=== PATIENT | female | born 1940 | race Caucasian/White ===

== ENCOUNTER 2016-08-02 15:07 | Inpatient (IN) | payer OTHER, BC ==
[2016-08-02] VITALS (7 sets, daily range): BP systolic 95–148; BP diastolic 60–111
[~2016-08-02] VITALS: Ht 157.5 cm; Wt 73.9 kg
--- NOTE | ~2016-08-02 | HC ---
[facility] [place] [place] [address] CONSULTATION Name: DENZEL BENTLEY Room #: 250- ADM IN M.R.#: [id number] Admission: 08/02/16 Attend Phys: Contreras Shafer MD Discharge: Date of : 39 Report #: [id number] THIS REPORT FOR: //name// CC: Leonel Worley MD DATE OF SERVICE: 08/03/[address] Vinicio Worley and Dr. Contreras Shafer. CHIEF COMPLAINT: This is a very pleasant 76-year-old white female who was admitted through the night with severe diarrhea and volume contraction, dehydration. She had a history of C. difficile diarrhea and CT scan showed that she did in fact have a segmental colitis involving the area around the splenic flexure and splenic flexure. She has been on p.o. vancomycin and continues on p.o. vancomycin. Now, she is also receiving IV Flagyl. Because of the possibility of ischemia as seen clinically and on CT scan, a lactate level was done and was normal. PAST MEDICAL HISTORY: Significant for: 1. Hypertension, atherosclerosis, osteoporosis. She has a history of vertebral compression fracture and is status post kyphoplasty. She has a history of an elevated ammonia. Today, she awakens easily, but drifts back to sleep immediately, which might be a sign of stage 2 coma. She has a history of metabolic encephalopathy in the past per her chart. 2. Paroxysmal supraventricular tachycardia with paroxysmal atrial fibrillation. 3. Acute urinary tract infection. 4. COPD greater than a 50 pack year smoker. 5. Depression. 6. Anxiety. 7. Old right rib fractures. 8. Cholelithiasis. 9. Atrophic left kidney. 10. Extensive aortic atherosclerosis. 11. Hypokalemia. MEDICATIONS AT THE CURRENT TIME: Include: 1. Amiodarone, gabapentin, metoprolol, tamsulosin. She is taking probiotics, normal saline IV fluid, clotrimazole topical, metronidazole IV, ipratropium bromide and albuterol inhaler. 2. Acetaminophen, vancomycin, ondansetron, metronidazole. She got 1 dose of ciprofloxacin. [facility] [address] [place] [address] CONSULTATION Name: MC,DENZEL C Room #: 250-P [facility] IN [facility].#: [id number] Admission: 08/02/16 Attend Phys: Contreras Shafer MD Discharge: Date of : 39 Report #: [id number] ALLERGIES: NICKEL. FAMILY HISTORY: Crohn's disease in her son. There is no history of colon polyps, colon cancer or ulcerative colitis. REVIEW OF SYSTEMS: She denies any dysphagia, odynophagia, gastroesophageal reflux, hiatal hernia, peptic ulcer disease, nausea or vomiting. Her weight has been stable. Appetite has been fairly good. She denies any hematemesis, hematochezia or melena. She has had diarrhea. She usually has alternating constipation and diarrhea. She denies any abdominal pain at this time. Denies any fevers or chills. She has had no history of jaundice, hepatitis, cholelithiasis, cholecystitis, pancreatitis that she is aware of. PHYSICAL EXAMINATION: GENERAL: Reveals a well-developed, well-nourished 76-year-old white female in no apparent distress at the time of the examination who is awake, alert, oriented x 4 and cooperative and pleasant to converse with. HEENT: She is normocephalic and atraumatic and anicteric. HEART: Irregularly irregular. LUNGS: Clear bilaterally. ABDOMEN: Soft, bowel sounds present in all 4 quadrants. There is no palpable organomegaly or mass. There is no tenderness, rebound or guarding at this time, although she indicates that she was tender in the left upper abdomen previously. EXTREMITIES: Warm and dry. No peripheral cyanosis, clubbing or edema. NEUROLOGIC: She appears grossly intact without lateralizing signs. IMPRESSION: 1. Clostridium difficile diarrhea. The patient is on p.o. vancomycin and IV Flagyl. She is admitted with sepsis. 2. Ischemia, may have been in progress initially due to volume contraction, but it has not progressed and therefore unlikely present today. 3. Agree with p.o. vancomycin and IV Flagyl. 4. We will advance diet as soft as the patient requested it and abdominal exam is benign at this time. 5. Hypertension and atherosclerosis. 6. Osteoporosis, history of vertebral compression fracture, status post kyphoplasty. 7. Elevated ammonia level greater than 100. The patient is sleeping but awakens easily only to drift back to sleep. This elevated ammonia level might be contributing to some of her sedation, although I do not know why her ammonia level is elevated. She has a history of a toxic metabolic encephalopathy but a hepatic encephalopathy in her chart. Nonetheless, she might benefit from rifaximin or lactulose. 8. Paroxysmal supraventricular tachycardia and paroxysmal atrial fibrillation. 9. Acute urinary tract infection. 10. Chronic obstructive pulmonary disease, 50 pack year smoker. [facility] [address] [place] [address] CONSULTATION Name: DENZEL BENTLEY Room #: 250-P ADM IN M.R.#: [id number] Admission: 08/02/16 Attend Phys: Contreras Shafer MD Discharge: Date of : 39 Report #: [id number] 11. Depression and anxiety. 12. Old right rib fractures. 13. Cholelithiasis. 14. Atrophic left kidney. 15. Extensive aortic atherosclerosis. 16. Hypokalemia. RECOMMENDATIONS: For her to continue taking the vancomycin p.o. and Flagyl IV, consider adding rifaximin for elevated ammonia level. We will recheck it now. We will advance to soft diet and get her transferred to the floor. Thank you very much once again for allowing me to participate in her care, Dr. Worley and Dr. Shafer. <ELECTRONICALLY SIGNED> By: Clarissa Russ DO 08/03/16 1613 1206 1539 Clarissa Russ DO /nt
--- NOTE | ~2016-08-02 | HC ---
[facility] [place] [address] [place] [address] CONSULTATION Name: DENZEL BENTLEY Room #: 427-P [facility] IN ..#: [id number] Admission: 08/02/16 Attend Phys: Contreras Shafer MD Discharge: Date of : 39 Report #: [id number] THIS REPORT FOR: //name// CC: Contreras Worley REASON FOR CONSULTATION: I was asked to evaluate concerning C. difficile colitis. HISTORY OF PRESENT ILLNESS: The patient is a 76-year-old with a history of C. difficile colitis diagnosed in March of this past year. She improved and was dismissed on cholestyramine. In May, she had a urinary tract infection and was placed back on antibiotics. Since then, she has had issues with diarrhea. She has been using Imodium intermittently. In the last 48 hours, she has had increased abdominal discomfort, diarrhea, anorexia. She fell on the floor without any specific injury, but could not get up and was brought into the emergency room via EMS. Since then, she has been given IV fluids placed on vancomycin and metronidazole. Still incontinent of loose liquid stool. No dysuria or frequency. ALLERGIES: Are none known. MEDICATIONS: As noted on her MAR. PAST MEDICAL HISTORY: Hypertension, osteoporosis, COPD, vertebral compression fractures, urinary tract infection, PSVT, kyphoplasty, paroxysmal atrial fibrillation. FAMILY HISTORY: Noncontributory. SOCIAL HISTORY: She lives at [facility]. Previous tobacco use, no recent alcohol intake. REVIEW OF SYSTEMS: No cough, sputum, dysuria. PHYSICAL EXAMINATION: VITAL SIGNS: Temperature was 99.2, hemodynamically stable on 2 liters of oxygen per nasal cannula. I and O is 1200 mL in, 400 mL out in the past 12 hours. HEENT: Unremarkable. MOUTH: Dry. NECK: Supple. LUNGS: Clear. HEART: Regular, without murmur. ABDOMEN: Soft, mild tenderness in the left lower quadrant, no guarding, no rebound. LABORATORY STUDIES: Hemoglobin 11, white count 29.8, platelet count 251,000, [address] [address] CONSULTATION Name: MC,DENZEL C Room #: 427-P [facility] IN M.R.#: [id number] Admission: 08/02/16 Attend Phys: Contreras Shafer MD Discharge: Date of : 39 Report #: [id number] 88% segs, 1% band. Sodium 136, potassium 3.4, bicarbonate 22, creatinine 1.0. Liver function test normal. Albumin at 2.1. Urinalysis moderate WBCs, many bacteria. Ultrasound of the abdomen, cholelithiasis, no gallbladder wall thickening. CT scan of the abdomen healed rib fractures, basilar atelectasis, cholelithiasis, atrophic left kidney, marked wall thickening distal transverse colon, descending colon, sigmoid colon with numerous diverticular. CT scan of the head, global atrophy, no acute change. Chest x-ray, no acute pulmonary infiltrates. ABGs on room air pO2 of 64, pCO2 of 38, pH 7.3, lactate 1.45, ammonia 109. IMPRESSION: A 76-year-old with left-sided colitis, sepsis, I am suspecting relapse of C. difficile colitis. Likely has pseudomembranous colitis. Has evidence of cystitis. I do not think this is the active infectious issue for her. RECOMMENDATION: Continue IV fluid resuscitation. Treat with vancomycin and metronidazole. We will see how she responds, but may need to consider fecal transplant. <ELECTRONICALLY SIGNED> By: Leonel Goins MD 08/04/16 0833 0931 1017 Leonel Goins MD /nt
--- NOTE | ~2016-08-02 | S ---
[facility] [place] [address] [place] [address] SURGICAL PATH RPT PROCEDURE Name: DENZEL BENTLEY Room #: 427-P ADM IN M.R.#: [id number] Admission: 08/02/16 Date of : 39 Discharge: Report #: [id number] Path Case #: [id number] PATHOLOGY REPORT COLLECTION DATE: 08/02/2016 RECEIVED DATE: 08/03/2016 SUBMITTING PHYS: Dr. Contreras Shafer OTHER PHYS: Dr. Contreras Russ SPECIMEN(S) RECEIVED: A.Peripheral smear * * * * * * * * * * * * FINAL DIAGNOSIS: Peripheral blood smear: - Moderate to marked leukocytosis / neutrophilia. (See comment) COMMENT: Overall the peripheral blood has moderate to marked leukocytosis / neutrophilia. Hemoglobin and platelet counts are within the normal reference ranges. The etiology of the findings is unclear based entirely on slide review. It is likely a reactive condition (clinical history of colitis and/or possible sepsis) and less likely a primary bone marrow disorder / myeloproliferative disease. If persistent and/or unexplained, BCR/ABL may provide additional information if clinically indicated. Correlation with clinical history and additional laboratory data is recommended. (CLW:anais; d/t: 08/03/2016) PATHOLOGIST: Sarah Saldivar M.D. REPORT ELECTRONICALLY SIGNED BY: Sarah Saldivar M.D. DATE/TIME: 08/03/2016 13:57 * * * * * * * * * * * * MICROSCOPIC DESCRIPTION: CBC DATA (08/02/16): WBC: 41,300 /uL; RBC: 4.04; Hgb: 12.6 g/dL; Hct: 38.2%; MCV: 94.4 fL; MCH: 31.2 pg; MCHC: 33.1 g/dL; RDW: 17.6%; platelets: 276,000 /uL. Manual white blood cell differential: segs - 89%, bands - 7%, lymphs - 1%, monos - 3%. Peripheral blood smear: Cytomorphological examination of the Goyal's-stained peripheral blood smear confirms the provided data. Red blood cells are normocytic and are without significant anisopoikilocytosis. White blood cells are moderate to markedly increased in number. They are [address] [address] SURGICAL PATH RPT PROCEDURE Name: DENZEL BENTLEY Martinez Room #: 427-[facility] IN .R.#: [id number] Admission: 08/02/16 Date of : 39 Discharge: Report #: [id number] Path Case #: [id number] predominantly segmented neutrophils and are without significant dyspoiesis or significant left shift. Lymphocytes are predominantly small, round and mature-appearing with condensed chromatin and scant cytoplasm with admixed large granular lymphocytes. Monocytes are mature. Platelets are adequate in number and mainly normal in morphology with rare larger platelets noted. GROSS PATHOLOGY: A peripheral smear is submitted. CLINICAL HISTORY: 76-year-old woman with leukocytosis. Morphologic review of the peripheral blood smear is requested by the patient's physician. INITIAL CPT CODE(S): A; [place] Professional services performed by [facility] at [facility] [address], [place] [address] Technical services performed by [facility] at [address] [place] [address], [address], [place] [address]. [facility] [address] [place] [address] PHONE: [phone] DIRECTOR: Lincoln Flowers M.D. * * * END OF REPORT * * *
--- NOTE | ~2016-08-02 | HC ---
[facility] [place] [address] CONSULTATION Name: MCDENZEL Martinez Room #: 427-P [facility].#: [id number] Admission: 08/02/16 Attend Phys: Contreras Shafer MD Discharge: 08/07/16 Date of : 39 Report #: [id number] THIS REPORT FOR: //name// CC: Contreras Worley FINAL DIAGNOSES: 1. Acute Clostridium difficile colitis. 2. Chronic obstructive pulmonary disease. 3. Sepsis due to acute Clostridium difficile colitis. HOSPITAL COURSE: The patient was admitted with elevated white count and diarrhea. She was placed in ICU with a working diagnosis of sepsis due to C. diff colitis. Hemodynamically she was stable, so full sepsis protocol was not entertained. The following day, her white count was much improved and she had no further diarrhea during the course of her stay. Eventually, samples obtained which revealed positive C. diff PCR. Dr. Leonel Goins saw in consultation. She improved markedly with her usual antibiotics of oral vancomycin and IV Flagyl. Other home medications were continued. She advanced up to the floor with a regular diet and activity as tolerated. PHYSICAL EXAMINATION: VITAL SIGNS: On the day of discharge, she was resting comfortably in bed with stable vital signs. O2 sats were ranging 91% with activity on room air to 96% at rest. LUNGS: Clear. HEART: Regular. ABDOMEN: Soft. . EXTREMITIES: Showed no edema. DISPOSITION: She will be discharged to home with diet and activity as tolerated. She will have home health follow up with me and Dr. Goins in 1 week. MEDICATIONS: Tylenol, acidophilus, amiodarone 200 mg, Flomax 0.4 mg, Robitussin, lisinopril 20 mg, metoprolol 25 mg twice a day, gabapentin 300 mg b.i.d., vancomycin 125 mg q.i.d. <ELECTRONICALLY SIGNED> By: Contreras Shafer MD 08/08/16 1035 1453 2214 Contreras Shafer MD /nt
--- NOTE | ~2016-08-02 | H ---
[facility] [place] [place] [address] HISTORY AND PHYSICAL Name: DENZEL BENTLEY Martinez Room #: 250-P ADM IN .R.#: [id number] Admission: 08/02/16 Attend Phys: Contreras Shafer MD Discharge: Date of : 39 Report #: [id number] THIS REPORT FOR: //name// CC: Contreras Worley DATE OF SERVICE: 08/02/2016 CHIEF COMPLAINT: Diarrhea. HISTORY OF PRESENT ILLNESS: The patient is a 76-year-old female who came to the Emergency Room from her assisted living facility at [place] with complaints of diarrhea. She said over the last 2 days, she has not been able to eat or drink much as she has lost her appetite. She reported multiple stools throughout the day and especially at night. She has a sense of urgency at times as well. She denies any subjective fever or chills and denies any abdominal pain or nausea and vomiting. She had taken a short course of Keflex in early May for suspected urinary tract infection. She said she suffered from diarrhea intermittently since that time; however, in the last few days, it has been more persistent. She has been using Imodium at home. PAST MEDICAL HISTORY: Hypertension, osteoporosis, COPD, history of vertebral compression fractures, history of UTI and a history of PSVT. She has had a previous T6 and T8 kyphoplasty, history of paroxysmal atrial fibrillation, history of metabolic encephalopathy. PAST SURGICAL HISTORY: She has had some orthopedic fracture surgeries. FAMILY HISTORY: Noncontributory. SOCIAL HISTORY: As mentioned, she was living at [facility]. She has previous tobacco and alcohol history but none recently. ALLERGIES: No known drug allergies. She has had a sensitivity to NICKEL. MEDICATIONS: Imodium, Celexa 20 mg, metoprolol 25 mg twice a day, Protonix 40 mg, Flomax 0.4 mg. REVIEW OF SYSTEMS: She just complains of feeling weak and some diarrhea and bladder urgency. Denies chest pain, shortness of breath, dysuria, myalgias, syncope or fall. PHYSICAL EXAMINATION: VITAL SIGNS: Temperature 36.9, pulse 59, respirations 18, blood pressure [facility] [address] [place] [address] HISTORY AND PHYSICAL Name: DENZEL BENTLEY Room #: 250-P [facility] IN [facility]#: [id number] Admission: 08/02/16 Attend Phys: Contreras Shafer MD Discharge: Date of : 39 Report #: [id number] 132/70. GENERAL: She was awake and alert, lying in the bed, in no distress. She recognized me in near surroundings. HEAD AND NECK: Unremarkable. LUNGS: Clear bilateral. HEART: Regular, no murmur. ABDOMEN: Protuberant, soft, normoactive bowel sounds. No rebound or guarding. EXTREMITIES: No cyanosis, clubbing, just trace sacral edema. She has 2+ dorsalis pedis pulses. NEUROLOGIC: Cranial nerves intact. Speech is fluent. Motor strength 4/5 throughout. LABORATORY REVIEW: She had a lactate of 1.45, pH of 7.33. Her white count is 41 with 89% segs, only 7% bands. Sodium was 132, BUN 31, creatinine 1.3. Liver enzymes unremarkable. CT abdomen and pelvis revealed walter wall thickening involving the distal transverse, descending and sigmoid colon. ASSESSMENT: 1. Sepsis. 2. Colitis. 3. Chronic obstructive pulmonary disease. PLAN: She will be admitted to ICU with supportive measures including IV fluid and empiric treatment for C. diff colitis. Given her smoking history, the other possibility here could be ischemic colitis. We will ask Dr. Leonel Goins to see her in consultation and Dr. Pascal to see if a flex sig is in order. It was not much mentioned on the CT abdomen regarding the arterial supply other than some aortic calcifications, but what seems to be a transition area from distal transverse colon involving the ascending colon, consideration of ischemic colitis should be kept in order as well. <ELECTRONICALLY SIGNED> By: Contrersa Shafer MD 08/03/16 1116 1745 1835 Contreras Shafer MD /nt
[~2016-08-02 15:07] MED LIST: ACETAMINOP160 MG/12 PER TUBE; ALEVE220 MG PO; ALPRAZOLAM PO; AMLODIPINE PO; AVELOX 400 MG400 M1 PO; BISACODYL SUPP10 MG RECTAL; CALCARB 600 WI1 EACH PO; CARDIZEM CD120 MG PO; CELEXA; CELEXA 20 MG TA20 M1 PO; CELEXA20 MG PO; CENTRUM SILVER1 EAC1 PO; CENTRUM SILVER1 EAC4 PO; CIPRO500 MG PO; CLOTRIMAZOLE 1%15 G1 TOP; COZAAR100 MG PO; CYCLOBENZAPRINE5 MG PO; DILTIAZEM ER60 M1 PO; DUONEB 2.5-0.5 M3 ML INH; FENTANYL PA12 MCG/HR TD; FISH OIL 1,0001 EAC5 PO; FLEXERIL PO; FLOMAX0.4 MG PO; FLORANEX PACKET1 GM PO; FLUSH FLUSH; FORTICAL1 SPRAY NASAL; GABAPENTIN 100100 MG PO; HCTZ PO; HEPARIN SO5000 UNIT/ SUBQ; HYDRALAZINE 10M10 MG PO; HYDRALAZINE20 MG/M1 IJ; HYDROCHLOROTHIA25 M1 PO; HYDROCODON-ACE1 EAC7 PO; LIDODERM 5%1 PATC1 TRANSDERM; LIDODERM 5%1 PATCH TOP; LISINOPRIL10 MG PO; LISINOPRIL30 MG PO; LISINOPRIL40 MG PO; LOPERAMIDE 2 MG2 M1 PO; LOPRESSOR25 PO; LOPRESSOR50 PO; MACRODANTIN100 MG PO; MAGOX 400400 MG PO; MUCINEX600 MG PO; NEURONTIN 300300 M1 PO; NICOTINE TRANSD21 M1; NICOTINE TRANSD21 M1 TD; NORCO 10-325 T1 EACH PO; NORCO 5-325 TA1 EACH PO; NORVASC 5 MG TAB5 MG PO; NORVASC10 MG PO; NORVASC5 MG PO; NOVOLOG100 UNIT/1 SUBQ; NUCYNTA ER150 MG PO; OCUVITE TABLET1 EAC1 PO; PACERONE 200 M200 M1 PO; PANTOPRAZOLE SO40 M1 PO; PERCOCET 5-3251 EACH PO; PREDNISONE 20 M20 MG PO; PREVALITE PACKE1 PKT PO; PRINIVIL20 MG PO; PROAIR HFA8.5 GM IH; PROAIR HFA8.5 GM INH; SEROQUEL 25 MG25 M1 PO; TEARS NATURALE1 EACH OPHTHALMIC; TOPROL XL25 MG PO; TRAMADOL 50 MG50 MG PO; TRAZODONE HCL50 MG PO; TYLENOL325 MG PO; VANCOMYCIN100 MG/M1 NG; VANCOMYCIN100 MG/ML NG; VICODIN 5-3001 EACH; VITAMIN B-1100 M1 PO; VITAMIN B-12100 MC1 PO; XANAX 0.25 MG0.25 MG PO; XANAX 0.5 MG0.5 M1 PO; XARELTO10 MG PO; XARELTO20 MG PO; XOPENEX 0.63 MG/3 M1 INH
[2016-08-02 15:19] LABS: HEMOGLOBIN 12.6 gm/dL (12.0-15.0); MCV 94.4 fL (80.0-100.0)
[2016-08-02 15:21] LABS: HEMATOCRIT 38.5 % (37.0-47.0); MCH 30.9 pg (26.0-34.0); MCHC 32.7 % (28.0-37.0); PLATELET COUNT 289 thou/uL (150-400); RBC 4.08 mil/uL (4.20-5.00)
[2016-08-02 15:22] LABS: MANUAL DIFF YES
[2016-08-02 15:23] LABS: WBC 41.1 thou/uL (4.0-11.0)
[2016-08-02 15:28] LABS: ANION GAP 10 mmol/L (7-16); BUN 31 mg/dL (7-18); CALCIUM 9.1 mg/dL (8.5-10.1); CHLORIDE 97 mmol/L (98-107); CO2 25 mmol/L (21-32); CREATININE 1.3 mg/dL (0.6-1.3); GLUCOSE 104 mg/dL (70-99); POTASSIUM 3.8 mmol/L (3.5-5.1); SODIUM 132 mmol/L (136-145)
[2016-08-02 15:34] LABS: ALBUMIN 2.6 g/dL (3.4-5.0); ALKALINE PHOSPHATASE 113 U/L (46-116); SGOT < 5 U/L (15-37); SGPT 7 U/L (30-65); TOTAL BILIRUBIN 0.5 mg/dL (<0.1-1.0); TOTAL PROTEIN 6.3 g/dL (6.4-8.2)
[2016-08-02 15:44] LABS: ABSOLUTE NEUTROPHILS 39.5 thou/uL (1.4-8.2); TOTAL CELL COUNT 100
[2016-08-02 15:56] LABS: ABG SAMPLE TYPE ARTERIAL; BE(vivo) -5.5 mmol/L (-2 to +3); HCO3 19.8 mmol/L (22.0-26.0); LACTATE 1.45 mmol/L (0.5-2.0); O2(CT) 16.8 mL/dL (15.0-23.0); O2Hb 88.7 % (92.0-98.0); PCO2 38.1 mmHg (35.0-45.0); PO2 64.8 mmHg (80.0-100.0); pH 7.334 (7.360-7.450); sO2 91.5 % (92.0-98.0)
[2016-08-02 15:57] LABS: STICK SITE R.RADIAL
[2016-08-02 17:13] LABS: ICTOTEST (BILI CONFIRMATORY) Negative (Negative); URINE BILIRUBIN NEGATIVE (Negative); URINE BLOOD TRACE (Negative); URINE COLOR YELLOW; URINE GLUCOSE-RANDOM* NEGATIVE (Negative); URINE KETONES 1+ (Negative); URINE LEUKOCYTES-REFLEX 1+ (Negative); URINE PROTEIN (DIPSTICK) 2+ (Negative); URINE SPECIFIC GRAVITY 1.015 (1.003-1.035); URINE UROBILINOGEN 0.2 E.U./dl (0.2-1.0)
[2016-08-02 17:33] LABS: CASTS None Seen /LPF (None Seen); SQUAMOUS 0-3 Few /LPF (0-3)
[2016-08-02 17:34] LABS: CRYSTALS None Seen /LPF (None Seen); URINE RBC 0-2 Rare /HPF (0-2)
[2016-08-03] VITALS (19 sets, daily range): BP systolic 114–151; BP diastolic 57–120
[2016-08-03 04:45] LABS: HEMATOCRIT 34.6 % (37.0-47.0); HEMOGLOBIN 11.2 gm/dL (12.0-15.0); MCH 30.7 pg (26.0-34.0); MCHC 32.3 % (28.0-37.0); PLATELET COUNT 251 thou/uL (150-400); RBC 3.64 mil/uL (4.20-5.00); RDW 17.5 % (10.5-14.5); WBC 29.8 thou/uL (4.0-11.0)
[2016-08-03 04:49] LABS: MANUAL DIFF YES
[2016-08-03 05:18] LABS: ALBUMIN 2.1 g/dL (3.4-5.0); ALKALINE PHOSPHATASE 92 U/L (46-116); ANION GAP 12 mmol/L (7-16); BUN 28 mg/dL (7-18); CHLORIDE 102 mmol/L (98-107); CO2 22 mmol/L (21-32); GLUCOSE 85 mg/dL (70-99); POTASSIUM 3.4 mmol/L (3.5-5.1); SGOT < 5 U/L (15-37); SGPT 6 U/L (30-65); SODIUM 136 mmol/L (136-145); TOTAL BILIRUBIN 0.4 mg/dL (<0.1-1.0); TOTAL PROTEIN 5.2 g/dL (6.4-8.2)
[2016-08-03 07:46] LABS: ABSOLUTE NEUTROPHILS 26.5 thou/uL (1.4-8.2); ANISOCYTOSIS 1+; TOTAL CELL COUNT 100
[2016-08-04 05:40] VITALS: BP 126/86
[2016-08-04 06:30] LABS: BASOPHILS 0.7 % (0.0-2.0); EOSINOPHILS 2.7 % (0.0-3.0); HEMATOCRIT 34.8 % (37.0-47.0); HEMOGLOBIN 11.3 gm/dL (12.0-15.0); LYMPHOCYTES 9.5 % (24.0-44.0); MCH 31.3 pg (26.0-34.0); MCHC 32.5 % (28.0-37.0); MCV 96.2 fL (80.0-100.0); MONOCYTES 6.7 % (1.0-8.0); PLATELET COUNT 272 thou/uL (150-400); POLYS 80.4 % (36.0-66.0); RBC 3.62 mil/uL (4.20-5.00); WBC 18.7 thou/uL (4.0-11.0)
[2016-08-04 06:31] LABS: MANUAL DIFF NO
[2016-08-04 06:53] LABS: ALBUMIN 2.1 g/dL (3.4-5.0); CALCIUM 8.2 mg/dL (8.5-10.1); CREATININE 0.9 mg/dL (0.6-1.3); POTASSIUM 3.9 mmol/L (3.5-5.1); TOTAL BILIRUBIN 0.1 mg/dL (<0.1-1.0); TOTAL PROTEIN 4.9 g/dL (6.4-8.2)
[2016-08-04 08:34] VITALS: BP 120/64
[2016-08-04 15:44] VITALS: BP 125/67
[2016-08-04 20:00] VITALS: BP 143/79
[2016-08-05 04:30] VITALS: BP 136/74
[2016-08-05 06:19] LABS: HEMATOCRIT 35.5 % (37.0-47.0); HEMOGLOBIN 11.3 gm/dL (12.0-15.0); MCH 31.1 pg (26.0-34.0); MCHC 31.9 % (28.0-37.0); MCV 97.5 fL (80.0-100.0); RBC 3.64 mil/uL (4.20-5.00); RDW 18.6 % (10.5-14.5); WBC 13.7 thou/uL (4.0-11.0)
[2016-08-05 06:45] LABS: CREATININE 0.9 mg/dL (0.6-1.3); POTASSIUM 3.9 mmol/L (3.5-5.1)
[2016-08-05 08:35] VITALS: BP 149/87
[2016-08-05 17:44] VITALS: BP 153/77
[2016-08-05 20:00] VITALS: BP 166/77
[2016-08-06 04:00] VITALS: BP 190/103
[2016-08-06 05:58] LABS: HEMATOCRIT 37.5 % (37.0-47.0); HEMOGLOBIN 11.8 gm/dL (12.0-15.0); MCH 30.7 pg (26.0-34.0); MCHC 31.6 % (28.0-37.0); MCV 97.3 fL (80.0-100.0); PLATELET COUNT 290 thou/uL (150-400); RBC 3.85 mil/uL (4.20-5.00); RDW 18.5 % (10.5-14.5); WBC 13.4 thou/uL (4.0-11.0)
[2016-08-06 06:10] LABS: MANUAL DIFF YES
[2016-08-06 06:21] LABS: CALCIUM 8.4 mg/dL (8.5-10.1); CREATININE 0.9 mg/dL (0.6-1.3); POTASSIUM 3.6 mmol/L (3.5-5.1)
[2016-08-06 07:35] VITALS: BP 151/69
[2016-08-06 08:10] LABS: ABSOLUTE NEUTROPHILS 11.4 thou/uL (1.4-8.2); TOTAL CELL COUNT 100
[2016-08-06 16:54] VITALS: BP 192/91
[2016-08-06 20:00] VITALS: BP 167/80
[2016-08-07 04:00] VITALS: BP 167/73
[2016-08-07 05:42] LABS: HEMATOCRIT 36.5 % (37.0-47.0); HEMOGLOBIN 11.8 gm/dL (12.0-15.0); MCH 30.9 pg (26.0-34.0); MCHC 32.5 % (28.0-37.0); MCV 95.1 fL (80.0-100.0); PLATELET COUNT 303 thou/uL (150-400); RBC 3.83 mil/uL (4.20-5.00); RDW 18.3 % (10.5-14.5); WBC 13.5 thou/uL (4.0-11.0)
[2016-08-07 05:44] LABS: MANUAL DIFF YES
[2016-08-07 05:58] LABS: CALCIUM 8.3 mg/dL (8.5-10.1); CREATININE 0.9 mg/dL (0.6-1.3); POTASSIUM 3.8 mmol/L (3.5-5.1)
[2016-08-07 07:40] LABS: TOTAL CELL COUNT 100
[2016-08-07 07:41] LABS: ANISOCYTOSIS 2+
[2016-08-07 07:42] LABS: ABSOLUTE NEUTROPHILS 10.5 thou/uL (1.4-8.2); METAMYELOCYTES 3 %
[2016-08-07 07:56] VITALS: BP 179/83
[2016-08-07] MEDS ORDERED: LISINOPRIL20 MG PO (13:48)
[2016-08-07] MEDS ORDERED: VANCOMYCIN100 MG/ML PO (13:48)
[2016-08-07 14:18] VITALS: BP 179/83
[2016-08-07 14:54] VITALS: BP 179/83
== END 2016-08-07 15:35 | disposition home health service (06) | DRG 872 ==
LOC: ER 15:07 → ICU 17:23 → EROBS 17:23 → ICU 20:39 → 4E 08-03 19:06
PROVIDERS: Emergency Medicine; Internal Medicine Geriatric Medicine; Nurse Practitioner
DX: A41.9 Sepsis, unspecified organism (principal); A04.7 Enterocolitis due to Clostridium difficile; N39.0 Urinary tract infection, site not specified; E44.0 Moderate protein-calorie malnutrition; I10 Essential (primary) hypertension; J44.9 Chronic obstructive pulmonary disease, unspecified; F32.9 Major depressive disorder, single episode, unspecified; F41.9 Anxiety disorder, unspecified; F17.210 Nicotine dependence, cigarettes, uncomplicated; M81.0 Age-related osteoporosis without current pathological fracture; I48.0 Paroxysmal atrial fibrillation; I25.10 Atherosclerotic heart disease of native coronary artery without angina pectoris; K80.20 Calculus of gallbladder without cholecystitis without obstruction; N26.1 Atrophy of kidney (terminal); I70.0 Atherosclerosis of aorta; E87.6 Hypokalemia; Z68.29 Body mass index [BMI] 29.0-29.9, adult; Z87.81 Personal history of (healed) traumatic fracture; Z98.890 Other specified postprocedural states; Z88.8 Allergy status to other drugs, medicaments and biological substances
CPT/HCPCS: 10078; 10783

== ENCOUNTER 2016-10-09 12:33 | Inpatient (IN) | payer OTHER, BC ==
[~2016-10-09] VITALS: Ht 162.6 cm; Wt 84.6 kg
--- NOTE | ~2016-10-09 | EKG ---
[address] [place] [address] ELECTROCARDIOGRAM REPORT Name: MCDENZEL C Room #: 242-P ADM IN M.R.#: [id number] Admission: 10/09/16 Attend Phys: Ra Wolf MD Discharge: Date of : 39 Report #: [id number] THIS REPORT FOR: //name// [facility] Test Date: 2016-10-10 Test Time: 20:35:01 Pat Name: DENZEL BENTLEY Department: Room: [facility] Gender: F Enrollment Clerk: Luis M REED : 1940 Requested By: Ashlyn Thakur Order Number: [id number] MD: Jacob Suazo Measurements Intervals [place] Rate: 130 P: RI: QRS: 2 QRSD: 73 T: 119 QT: 304 QTc: 447 Interpretive Statements Atrial fibrillation Borderline repol abnormality, lateral leads Compared to ECG 04/07/2016 14:29:52 ST (T wave) deviation now present Sinus rhythm no longer present Nonspecific change in the ST and T wave segments Electronically Signed On 10-11-2016 7:51:53 CDT by Jacob Suazo [email or web address] <ELECTRONICALLY SIGNED> By: Jacob Suazo MD, [facility] 10/11/16 0751 34 34 Jacob Suazo MD, [facility] /EPI
--- NOTE | ~2016-10-09 | EEG ---
[facility] [place] [address] ELECTROENCEPHALOGRAM Name: DENZEL BENTLEY Room #: 242-P ADM IN M.R.#: [id number] Admission: 10/09/16 Attend Phys: Contreras Shafer MD Discharge: Date of : 39 Report #: [id number] THIS REPORT FOR: //name// CC: Contreras Worley DATE OF EE10/12/2016 This patient is being evaluated for altered mental status. EEG was done by placing the electrodes by standard 10-20 system of electrode placement. Both referential and sequential montages were used for recording. Background activity in this patient's EEG is about 7 Hz and 30-40 microvolt. It is a symmetrical activity. The patient goes to sleep and that is associated with bilaterally symmetrical sleep spindle and vertex sharp waves. Photic stimulation was unremarkable. Throughout the record, no active epileptiform activity was noticed. IMPRESSION: This is an abnormal EEG because it is disorganized and poorly formed. That is a nonspecific abnormality, which can occur with encephalopathy, effect of psychotropic medication, dementia, etc. Clinical correlation is recommended. Thank you very much for this referral. <ELECTRONICALLY SIGNED> By: Eliud Augustin MD 10/13/160 1723 40 Eliud Augustin MD /nt
--- NOTE | ~2016-10-09 | HC ---
[facility] [place] [address] [place] [address] CONSULTATION Name: DENZEL BENTLEY Martinez Room #: 242-P [facility] IN ..#: [id number] Admission: 10/09/16 Attend Phys: Contreras Shafer MD Discharge: Date of : 39 Report #: [id number] THIS REPORT FOR: //name// CC: Contreras Worley DATE OF SERVICE: 10/11/2016 PATIENT IDENTIFICATION: This 76-year-old female has a complicated medical history, which includes hypertension, COPD, history of alcohol abuse and tobacco abuse. She presents to the emergency room with complaints of acute abdominal pain. Evaluation revealed evidence of localized left lower quadrant pain. CT scan reveals diverticulitis with areas of colonic mucosal thickening involving the descending, ascending, and rectosigmoid colon. The patient's condition has clinically deteriorated with respiratory distress and development of septic shock. She was transferred to the intensive care unit for further evaluation and treatment. She is seen after intubation on mechanical ventilation with acute respiratory failure, septic shock, and metabolic acidosis as well as atrial fibrillation with rapid ventricular response. She has been diagnosed with recurrent C. diff diarrhea. PAST MEDICAL HISTORY: Remarkable as described above. PERSONAL AND SOCIAL HISTORY, FAMILY HISTORY, AND REVIEW OF SYSTEMS: As per the chart as they are not obtainable from the patient who is noncommunicative at this point and there is no family present. PHYSICAL EXAMINATION: GENERAL: Reveals a well-developed, acutely ill female. VITAL SIGNS: Blood pressure of 90/60, on Levophed infusion. She is intubated, mechanically ventilated. NECK: Supple. LUNGS: Wells reveal scattered rhonchi bilaterally. CARDIAC: Reveals an irregularly irregular rhythm without gross murmur or rub. ABDOMEN: Moderately distended. There is no guarding, tenderness, rebound or mass appreciated. NEUROLOGIC: Reveals minimal response to painful stimuli. LABORATORY STUDIES: Available at the time of consultation include sodium 138, potassium 4.2, chloride 106, CO2 of 18, BUN 75, creatinine 2.9, and glucose 53. White blood cell count 16,100, hemoglobin 12.4, hematocrit 39.4, and platelet count 226,000. Arterial blood gases pH 7.032, pCO2 of 62, pO2 79 on 6 liters nasal cannula. ASSESSMENT: [facility] [address] [place] [address] CONSULTATION Name: DENZEL BENTLEY Room #: 242-[facility] IN [facility].#: [id number] Admission: 10/09/16 Attend Phys: Contreras Shafer MD Discharge: Date of : 39 Report #: [id number] 1. Septic shock likely secondary to evolving Clostridium difficile colitis as evidenced by CT examination and clinical examination. 2. Acute kidney injury. 3. Hypoglycemia. 4. Acute respiratory failure. 5. Atrial fibrillation with rapid ventricular response. This patient is critically ill with multisystem organ failure at this time. She will require aggressive fluid resuscitation with mechanical ventilation and bicarbonate support. We will follow serial laboratory studies, I and O and daily weights. No family is present at this time to discuss her findings and prognosis. Please see orders. Critical care time 45 minutes. <ELECTRONICALLY SIGNED> By: Yonis Gillette MD 10/14/16 0826 1233 1555 Yonis Gillette MD /nt
--- NOTE | ~2016-10-09 | P ---
[facility] [place] [address] PROCEDURE REPORT Name: MCDENZEL C Room #: 242-P [facility] IN M.R.#: [id number] Admission: 10/09/16 Attend Phys: Ra Wolf MD Discharge: Date of : 39 Report #: [id number] THIS REPORT FOR: //name// CC: Ra Worley DATE OF SERVICE: 10/11/2016 PROCEDURE: Left radial arterial line insertion, 20-gauge catheter. INDICATION: Severe sepsis and hypertension. PROCEDURE NOTATION: Left radial arterial line site was chosen for a radial arterial line to assist with management of severe sepsis and refractory hypertension. Site was cleansed with 2% chlorhexidine gluconate. Using the Arrow catheter kit, 20 gauge as well as creating a sterile field, the left radial artery was accessed on the first attempt, without difficulty. Catheter was sutured in place and connected to partial transducer. A good waveform was noted on monitor. Line flushed and aspirated easily. The patient tolerated well with no noted complications. Line sutured in place with 3-0 silk and dressed with clear OpSite. By: 0812 1056 Jake Everett MD /nt
--- NOTE | ~2016-10-09 | HC ---
[facility] [place] [address] CONSULTATION Name: DENZEL BENTLEY Room #: 242-P [facility] IN ..#: [id number] Admission: 10/09/16 Attend Phys: Contreras Shafer MD Discharge: Date of : 39 Report #: [id number] THIS REPORT FOR: //name// CC: Ra Worley DATE OF SERVICE: 10/11/2016 HISTORY OF PRESENT ILLNESS: This is a 76-year-old female patient who is unable to provide any history. Neurological consultation was requested to evaluate the patient for any hypoxic injury. This patient was originally admitted with diarrhea and she was being managed. Then as I understand from the nurses, she has to be transferred down with respiratory failure and sepsis. That made her unresponsive. She has become somewhat more responsive. Presently, she is intubated, but it does not appear that she has significant altered mental status. She does not fluctuate that much. She was in pain and she received some medications and she is somewhat sleepy because of that. REVIEW OF SYSTEMS: A 14-point review of system was carried out from the records. This patient has multiple problems that include kidney problems, respiratory problems, septic shock, C. difficile, atrial fibrillation at one time. She has required pressors supports according to the records. This was the relevant 14-point review of systems. PAST MEDICAL HISTORY: Positive for numerous problems which are summarized above. FAMILY HISTORY: Unavailable. SOCIAL HISTORY: One of the histories from the record indicate that she has a past alcohol use and for tobacco use, it says yes. PHYSICAL EXAMINATION: The patient's examination is pretty limited. She is drowsy, but she can be awakened. When awaken, she follows simple command. It is not possible to check her memory or fund of knowledge because she is intubated. Cranial nerve examination 2-12 was attempted. She moves eyes in all direction and looks nonfocal. She moves symmetrically. Sensation looks intact. Reflexes are difficult to tell. Tone looks intact. It is not possible to check the cerebellar sign because of her condition. She is a reasonably well-developed individual who does not have any dysmorphic features of eyes, ears and face. Her hearing looks intact. She does not have a thyroid mass. She is intubated. Blood pressure is 110/56, temperature is 97.9, pulse is 101, respiration is 22. LABORATORY DATA: Indicates white count of 20.4. Sodium is normal. She did have a CT scan of the head, which was reviewed and was mostly unremarkable. [address] [address] CONSULTATION Name: DENZEL BENTLEY Room #: 242-P [facility] IN [facility]#: [id number] Admission: 10/09/16 Attend Phys: Contreras Shafer MD Discharge: Date of : 39 Report #: [id number] IMPRESSION: It is unlikely that this patient has suffered any significant hypoxic encephalopathy and I think we can just observe this patient. She has numerous metabolic problems which need to be corrected. Mainly, I will get an EEG done tomorrow. RECOMMENDATIONS: We will check an EEG. Presently, she does not appear to be affected too much with hypoxic encephalopathy, but we will watch this patient. Thank you very much for this referral. <ELECTRONICALLY SIGNED> By: Eliud Augustin MD 10/13/161925 07 31 Eliud Augustin MD /nt
--- NOTE | ~2016-10-09 | P ---
[facility] [place] [address] PROCEDURE REPORT Name: MCDENZEL C Room #: 242-P [facility] IN M.R.#: [id number] Admission: 10/09/16 Attend Phys: Ra Wolf MD Discharge: Date of : 39 Report #: [id number] THIS REPORT FOR: //name// CC: Ra Worley DATE OF SERVICE: 10/11/2016 PROCEDURE: Urgent intubation. INDICATION: Hypercapnic respiratory failure with mixed respiratory and metabolic acidosis. PROCEDURE NOTATION: I was called for stat consultation, evaluated the patient urgently. The patient was poorly responsive and unable to protect airway as well as having mixed metabolic and respiratory acidosis. The patient was being supported by noninvasive positive pressure ventilation with a BiPAP. The patient received sedation with 20 mg of etomidate. On initial evaluation with a Medeiros 4 laryngoscope, the oropharynx was extremely dry and fragile, with some ulcerations on the soft palate. These were very friable and bled easily with manipulation with the laryngoscope. Grade 1 view of the vocal cords; however, the airway was so dry that it was difficult advancing the endotracheal tube. Endotracheal tube and laryngoscope were then removed. The patient continued to be bag-masked ventilated and additional lubrication was added to the endotracheal tube. A second direct laryngoscopy was performed, and again with similar findings and a grade 1 view, without difficulty, a 7.5 endotracheal tube was advanced to 22 cm in the teeth. Positive Easy cap color change noted on the patient with bilateral breath sounds. The patient tolerated well, with no noted complications. Chest x-ray pending at the time of dictation. Endotracheal tube secured and the patient placed on mechanical ventilatory support. By: 0809 1104 Jake Everett MD /nt
--- NOTE | ~2016-10-09 | EKG ---
[address] [address] ELECTROCARDIOGRAM REPORT Name: MCDENZEL C Room #: 242- ADM IN M.R.#: [id number] Admission: 10/09/16 Attend Phys: Ra Wolf MD Discharge: Date of : 39 Report #: [id number] THIS REPORT FOR: //name// [facility] Test Date: 2016-10-12 Test Time: 07:29:36 Pat Name: DENZEL BENTLEY Department: Room: 242 Gender: F Ambulette Driver: raeann : 1940 Requested By: Tiffany Vieyra Order Number: [id number] MD: Jacob Suazo Measurements Intervals [place] Rate: 88 P: 2 WV: 265 QRS: -11 QRSD: 72 T: 178 QT: 392 QTc: 475 Interpretive Statements Sinus rhythm with frequent atrial premature complexes Prolonged WV interval Inferior infarct, old Poor R-wave progression Compared to ECG 10/10/2016 20:35:01 Sinus rhythm is now present Electronically Signed On 10-12-2016 8:36:22 CDT by Jacob Suazo [email or web address] <ELECTRONICALLY SIGNED> By: Jacob Suazo MD, [facility] 10/12/16 0836 0729 Jacob Suazo MD, [facility] /EPI
--- NOTE | ~2016-10-09 | D ---
[facility] [place] [address] [place] [address] DISCHARGE SUMMARY Name: MCDENZEL Martinez Room #: 305-P [facility] IN ..#: [id number] Admission: 10/09/16 Attend Phys: Contreras Shafer MD Discharge: 10/18/16 Date of : 39 Report #: [id number] THIS REPORT FOR: //name// CC: Contreras Worley FINAL DIAGNOSES: 1. Severe sepsis. 2. Clostridium difficile colitis. 3. Acute hypoxic hypercapnic respiratory failure. 4. . 5. Paroxysmal atrial fibrillation. 6. Metabolic encephalopathy. 7. Acute renal failure, improved. 8. Oropharyngeal dysphagia. 9. Critical illness myopathy. 10. Hypertension. HOSPITAL COURSE: The patient was admitted from home with diarrhea and diagnosed with Clostridium difficile and the next couple of days, her condition deteriorated and she developed hypercapnic hypoxic respiratory failure, was sent emergently to ICU. Ultimately, she was intubated and placed on mechanical ventilation, full support teams were consulted to manage issues. Gradually, her situation stabilized and improved and she was extubated. She passed bedside swallow evaluation for pureed, [place] thick. She is taking oral medications. She had an episode of paroxysmal atrial fibrillation related to the acute illness which stabilized to normal sinus rhythm. She received Lovenox only for deep venous thrombosis prophylaxis. She was still requiring BiPAP at night along with IV antibiotics. Plan was made for long-term acute care hospitalization for continued medical care. PHYSICAL EXAMINATION: GENERAL: On the day of discharge, she was awake and alert and oriented to place and situation and recognized me. VITAL SIGNS: Temperature is 36.2, pulse 58, respirations 18, blood pressure /75, O2 sat 95% on 2-3 liters nasal cannula. LUNGS: Clear. HEART: Regular. ABDOMEN: Soft, normoactive bowel sounds. EXTREMITIES: No edema. DISPOSITION: To be transferred to [facility] under the care of Dr. Bi Goins. Infectious disease and pulmonary will be consulted along with physical and occupational and speech therapies, she will continue pureed diet with nectar thick liquids until upgraded. She will continue current medications with follow [facility] [address] [place] [address] DISCHARGE SUMMARY Name: DENZEL BENTLEY Room #: 305-P [facility] IN ..#: [id number] Admission: 10/09/16 Attend Phys: Contreras Shafer MD Discharge: 10/18/16 Date of : 39 Report #: [id number] up lab data including Lovenox for deep venous thrombosis prophylaxis, BiPAP at night and oxygen 3-6 liters nasal cannula as needed. <ELECTRONICALLY SIGNED> By: Contreras Shafer MD 10/19/16 1125 1259 1334 Contreras Shafer MD /nt
--- NOTE | ~2016-10-09 | P ---
[facility] [place] [address] PROCEDURE REPORT Name: DENZEL BENTLEY Room #: 242-P [facility] IN .R.#: [id number] Admission: 10/09/16 Attend Phys: Ra Wolf MD Discharge: Date of : 39 Report #: [id number] THIS REPORT FOR: //name// CC: Ra Worley DATE OF SERVICE: 10/11/2016 PROCEDURE: Right subclavian triple-lumen catheter insertion. INDICATION: Severe sepsis, need for central venous access. PROCEDURE NOTATION: Consent obtained verbally by phone from daughter due to the urgent nature of patient decompensation. Right subclavian site was chosen. Site was cleansed with 2% chlorhexidine gluconate. Sterile field was created using maximal barrier method including hat, mask, gown and gloves and a full body eye sheet. Using an infraclavicular approach, the patient received 3 mL of 1% lidocaine for topical anesthesia. The patient also was on mechanical ventilatory support and received 2 mg of Versed IV for sedation. Once anesthetized, a finer needle was advanced using the infraclavicular approach until venous blood was easily aspirated on the first attempt. J-wire was difficult to advance initially. The needle was then rotated and repositioned slightly, again with good blood flow and the J-wire was easily advanced and the needle was removed. A small dermotomy was made at the site of insertion and using Seldinger technique, a dilator followed by triple lumen over the J-wire was advanced, where the triple lumen advanced to 16 cm at the skin surface. All lines flushed and aspirated easily. This was sutured in place with 3-0 silk and dressed with a Biopatch and OpSite. Chest x-ray pending at the time of dictation. By: 0811 1046 Jake Everett MD /nt
--- NOTE | ~2016-10-09 | HC ---
[facility] [place] [address] CONSULTATION Name: DENZEL BENTLEY Martinez Room #: 242-P ADM IN M.R.#: [id number] Admission: 10/09/16 Attend Phys: Ra Wolf MD Discharge: Date of : 39 Report #: [id number] THIS REPORT FOR: //name// CC: Leonel Baron MD DATE OF SERVICE: 10/11/2016 PULMONARY CONSULTATION REFERRING PROVIDER: MUNA Garner. REASON FOR CONSULTATION: Sepsis and respiratory failure. CHIEF COMPLAINT: Altered mental status. HISTORY OF PRESENT ILLNESS: I was asked urgently to come in to the hospital this morning to evaluate this patient. The patient was poorly responsive and was found to have a mixed metabolic and respiratory acidosis which was severe. The patient was poorly responsive and was subsequently intubated and placed on central venous catheter and arterial catheter to assist with management of what appears to be severe sepsis. The patient was admitted on the with complaints of abdominal pain and has C. difficile colitis as well as a urinary tract infection and overnight became less and less responsive, hypotensive, had some difficulty with atrial fibrillation with rapid ventricular response. Subsequently, as mentioned, laboratories revealed worsening metabolic and respiratory acidosis with acute renal insufficiency. Currently is on the ventilator and poorly responsive. ALLERGIES: NICKEL. PAST MEDICAL HISTORY: 1. Hypertension. 2. COPD. 3. History of supraventricular tachycardia. 4. Alcohol abuse by report. 5. Lumbar radiculopathy. 6. Depression and anxiety. OUTPATIENT MEDICATIONS: Include lisinopril, gabapentin, metoprolol, tamsulosin, amiodarone and albuterol. SOCIAL HISTORY: The patient is an ex-smoker and drinker. [facility] [address] [place] [address] CONSULTATION Name: DENZEL BENTLEY Room #: 242-P [facility] IN .R.#: [id number] Admission: 10/09/16 Attend Phys: Ra Wolf MD Discharge: Date of : 39 Report #: [id number] FAMILY HISTORY: Unobtainable due to current status. REVIEW OF SYSTEMS: Otherwise, unobtainable due to current status. PHYSICAL EXAMINATION: VITAL SIGNS: Afebrile. Pulse 130s and irregular, respiratory rate in the 20s and blood pressure 84/44. GENERAL: This is an elderly woman, poorly responsive. ENT: Pretty dry oropharynx. No dental caries. NECK: Supple. No lymphadenopathy. LUNGS: Diminished, but clear. No wheezes or crackles. CARDIOVASCULAR: Heart is tachycardic, but regular. No murmurs noted. ABDOMEN: Soft. Mild diffuse tenderness. No masses, no hepatosplenomegaly. EXTREMITIES: Without edema. IMPRESSION: 1. Respiratory failure, acute hypercapnic and hypoxemic, likely due to severe sepsis and poor ventilation as a consequence. 2. Possible left lower lobe infiltrate or atelectasis. 3. Clostridium difficile colitis. 4. Urinary tract infection. 5. Altered mental status, likely secondary to the above. 6. History of alcohol and tobacco abuse by reports in the records. 7. History of chronic obstructive pulmonary disease. SUGGESTIONS: 1. Bronchodilators. 2. ICU care. 3. volume. 4. Nephrology consultation noted. 5. Antibiotics per infectious disease service. 6. Sepsis protocol. 7. Additional recommendations to follow. Total critical care time 45 minutes, not including procedures. Discussed with Dr. Russ and nursing at bedside. By: 1123 1244 Jake Everett MD /nt
--- NOTE | ~2016-10-09 | HC ---
[facility] [place] [address] CONSULTATION Name: DENZEL BENTLEY Martinez Room #: 446-P ADM IN M.R.#: [id number] Admission: 10/09/16 Attend Phys: Ra Wolf MD Discharge: Date of : 39 Report #: [id number] THIS REPORT FOR: //name// CC: Contreras Worley DATE OF SERVICE: 10/09/2016 REASON FOR CONSULTATION: The patient is a 76-year-old woman with recurrent diarrhea. HISTORY OF PRESENT ILLNESS: This patient was admitted to [facility] in July of this year with diarrhea. She was found to have C. diff diarrhea and was discharged on vancomycin. I believe she had been in a nursing facility and was brought to the Emergency Room today with severe diarrhea. She reports the diarrhea started 3-4 days ago. The diarrhea is nonbloody. She denies abdominal pain, fever or chills. She reports she has had a colonoscopy and believes that it was last done within the past year or so. She does not know results, but she did mention Dr. Kurtis Khan's name. I do not have those records at this time. Upon admission, she was found to have a white count of 11.7, hemoglobin was 12.6, platelet count 202,000. She did have a CT abdomen and pelvis which revealed evidence of mild diverticulitis as well as segments of smooth muscle colonic thickening of the left colon and rectosigmoid and she also was found to have gallstones and a nonobstructing stone in the mid right kidney. PAST MEDICAL HISTORY: She has had a high blood pressure, atherosclerosis and osteoporosis. She has had a vertebral compression fracture status post kyphoplasty. She has had paroxysmal supraventricular tachycardia and also urinary tract infections. She said she has COPD and continues to smoke. She had been treated for depression and anxiety, also has an atrophic left kidney. She has had rib fractures as well. ALLERGIES: TRAE. CURRENT MEDICATIONS: The patient could not tell me her medications, but listed in the computer under ambulatory medicines are acetaminophen 650 mg every 6 hours as needed, ProAir HFA 90 mcg every 4 hours, amiodarone 200 mg daily, clotrimazole fungal cream as needed, gabapentin 300 mg twice daily, lisinopril 20 mg daily, metoprolol 25 mg twice daily, tamsulosin 0.4 mg at bedtime. FAMILY HISTORY: No family history of colon cancer, son has Crohn's disease. [address] [address] CONSULTATION Name: DENZEL BENTLEY Room #: 446-[facility] IN [facility].#: [id number] Admission: 10/09/16 Attend Phys: Ra Wolf MD Discharge: Date of : 39 Report #: [id number] SOCIAL HISTORY: She smokes, she does not consume alcohol. REVIEW OF SYSTEMS: A little difficult to follow as the patient mumbles quite a bit. GENERAL: No fever or chills. CENTRAL NERVOUS SYSTEM: No focal weakness, numbness, loss of consciousness, seizures or strokes. ENT: Wears glasses, no change in vision or hearing. PULMONARY: Chronic obstructive pulmonary disease and smokes. No recent cough or pneumonia. CARDIOVASCULAR: No chest pain or chest tightness or palpitations. GASTROINTESTINAL: No nausea, vomiting, nonbloody diarrhea is noted. GENITOURINARY: Kidney stones, no dysuria. GYNECOLOGIC: No discharge or bleeding. MUSCULOSKELETAL: She does have arthralgias. She has had vertebral compression fracture. SKIN: Without rashes. ENDOCRINE: Not aware of diabetes or thyroid problems. HEMATOLOGIC: No bleeding, bruising or malignancies. PHYSICAL EXAMINATION: GENERAL: The patient is well-developed, well-nourished woman who is awake, in no acute distress. At times, she appears to be sleepy but does respond to questions. VITAL SIGNS: Blood pressure 128/64, pulse 70. HEENT: Anicteric. Pupils equal and round. Oropharynx clear. NECK: Supple. CHEST: Clear. HEART: Regular rate and rhythm, normal S1 and S2. ABDOMEN: Obese, normal bowel sounds, soft, nontender, without hepatosplenomegaly or masses. RECTAL: Not done. EXTREMITIES: Without cyanosis, clubbing, edema. LABORATORY DATA: White count 11.7, hemoglobin 12.6, platelet count of 202,000. Sodium 128, potassium 3.4, chloride 96, BUN 60, creatinine 2.6, albumin 2.7. Stool for C. diff toxin has not yet been perceived. ASSESSMENT: 1. Diarrhea. 2. Questionable mild diverticulitis on CT, doubtful. 3. Cholelithiasis. 4. Acute kidney injury, likely secondary to diarrhea. 5. Atherosclerosis. 6. History of paroxysmal atrial fibrillation and supraventricular tachycardia. [facility] [address] [place] [address] CONSULTATION Name: DENZEL BENTLEY Room #: 446-P [facility] IN M.R.#: [id number] Admission: 10/09/16 Attend Phys: Ra Wolf MD Discharge: Date of : 39 Report #: [id number] PLAN: 1. Stool for Clostridium difficile toxin. 2. Consult Dr. Leonel Goins who knows this patient from previous treatment for C. diff. 3. No further gastrointestinal intervention planned at this point in time such as colonoscopy. <ELECTRONICALLY SIGNED> By: Angus Suarez MD 10/10/16 1224 1638 1934 Angus Suarez MD /nt
--- NOTE | ~2016-10-09 | HC ---
[facility] [place] [address] CONSULTATION Name: MCDENZEL Martinez Room #: 242-P [facility] IN .R.#: [id number] Admission: 10/09/16 Attend Phys: Ra Wolf MD Discharge: Date of : 39 Report #: [id number] THIS REPORT FOR: //name// CC: Ra Worley REASON FOR CONSULTATION: I was asked to evaluate concerning C. difficile colitis. HISTORY OF PRESENT ILLNESS: The patient was a 76-year-old, who presents with abdominal pain and diarrhea for 4 days. No nausea or vomiting. She has had previous history of C. difficile colitis. She states that her stools had normalized from her last hospitalization. No documented fever. She is on 2 L of oxygen per nasal cannula. The patient was lethargic and a bit confused, although gave a reasonable history. ALLERGIES: None known. MEDICATIONS: As noted on her MAR including metronidazole at this time. Unclear when she is finished her vancomycin from her last hospitalization in July. PAST MEDICAL HISTORY, FAMILY HISTORY AND SOCIAL HISTORY: Unchanged from her previous consultation in July. REVIEW OF SYSTEMS: No cough or sputum production. No nausea, vomiting, no dysuria. PHYSICAL EXAMINATION: VITAL SIGNS: She was afebrile, hemodynamically stable. She did have 50 mL of liquid stool recorded today. She is on 2 L of oxygen per nasal cannula. GENERAL: She was lying in bed and was a bit lethargic. SKIN: Unremarkable. LYMPH: Unremarkable. HEENT: Eyes: Unremarkable. Mouth: Unremarkable. LUNGS: Clear. HEART: Regular, without murmur. ABDOMEN: Soft, mild distention with diffuse tenderness. No localizing areas, no rebound or guarding. No appreciable mass. RECTAL: Not performed. EXTREMITIES: Unremarkable. LABORATORY STUDIES: Hemoglobin 12.6; white count 11.7; platelet count was 212,000. Sodium 128, potassium 3.4, bicarbonate 24, creatinine 2.6. Liver function test normal. Urinalysis had positive for WBCs and bacteria. Urine cultures pending. CT scan showed mild diverticular changes and diffuse colon wall thickening and nonobstructing nephrolithiasis. [facility] [address] [place] [address] CONSULTATION Name: MCDENZEL C Room #: 242-P ADM IN ..#: [id number] Admission: 10/09/16 Attend Phys: Ra Wolf MD Discharge: Date of : 39 Report #: [id number] IMPRESSION: A 76-year-old with relapse of Clostridium difficile colitis. I suspect this is more likely than diverticular disease. She does have bacteriuria and pyuria, but feel that colitis must be the first treatment approach. PLAN: Recommend vancomycin and metronidazole. Pending further studies. <ELECTRONICALLY SIGNED> By: Leonel Goins MD 10/11/16 0847 [id number] [id number] Leonel Goins MD /nt
[2016-10-09 12:33] VITALS: BP 90/35
[~2016-10-09 12:33] MED LIST changes: +LISINOPRIL20 MG PO; +VANCOMYCIN100 MG/ML PO
[2016-10-09 13:07] LABS: HEMATOCRIT 37.3 % (37.0-47.0); HEMOGLOBIN 12.6 gm/dL (12.0-15.0); MCH 33.5 pg (26.0-34.0); MCHC 33.7 g/dL (28.0-37.0); MCV 99.4 fL (80.0-100.0); PLATELET COUNT 202 thou/uL (150-400); RBC 3.75 mil/uL (4.20-5.00); RDW 15.7 % (10.5-14.5); WBC 11.7 thou/uL (4.0-11.0)
[2016-10-09 13:09] LABS: MANUAL DIFF YES
[2016-10-09 13:14] LABS: CALCIUM 8.8 mg/dL (8.5-10.1); CREATININE 2.6 mg/dL (0.6-1.3); POTASSIUM 3.4 mmol/L (3.5-5.1)
[2016-10-09 13:23] LABS: ALBUMIN 2.7 g/dL (3.4-5.0); TOTAL BILIRUBIN 0.5 mg/dL (<0.1-1.0); TOTAL PROTEIN 6.1 g/dL (6.4-8.2)
[2016-10-09 13:28] LABS: ABSOLUTE NEUTROPHILS 10.1 thou/uL (1.4-8.2); TOTAL CELL COUNT 100
[2016-10-09 13:31] LABS: URINE BLOOD 3+ (Negative); URINE COLOR YELLOW; URINE GLUCOSE-RANDOM* NEGATIVE (Negative); URINE KETONES TRACE (Negative); URINE LEUKOCYTES-REFLEX 2+ (Negative); URINE PROTEIN (DIPSTICK) 2+ (Negative); URINE UROBILINOGEN 0.2 E.U./dl (0.2-1.0)
[2016-10-09 13:33] LABS: ICTOTEST (BILI CONFIRMATORY) Negative (Negative); URINE BILIRUBIN NEGATIVE (Negative)
[2016-10-09 13:43] LABS: SQUAMOUS 0-3 Few /LPF (0-3); URINE WBC-REFLEX >25 Many /HPF (0-5)
[2016-10-09 13:44] LABS: CASTS None Seen /LPF (None Seen); CRYSTALS None Seen /LPF (None Seen)
[2016-10-09 15:19] LABS: MAGNESIUM 2.1 mg/dL (1.8-2.4); PHOSPHORUS 3.3 mg/dL (2.5-4.9)
[2016-10-09 15:35] VITALS: BP 103/54
[2016-10-09 16:00] VITALS: BP 128/64
[2016-10-09 16:30] VITALS: BP 128/64
[2016-10-09 20:19] VITALS: BP 92/54
[2016-10-10] VITALS (7 sets, daily range): BP systolic 83–123; BP diastolic 40–98
[2016-10-10 10:09] LABS: HEMATOCRIT 35.9 % (37.0-47.0); MCH 33.6 pg (26.0-34.0); MCHC 33.3 g/dL (28.0-37.0); MCV 100.8 fL (80.0-100.0); RBC 3.56 mil/uL (4.20-5.00); RDW 15.9 % (10.5-14.5); WBC 10.6 thou/uL (4.0-11.0)
[2016-10-10 10:24] LABS: CALCIUM 8.3 mg/dL (8.5-10.1); CREATININE 2.7 mg/dL (0.6-1.3); POTASSIUM 4.1 mmol/L (3.5-5.1)
[2016-10-11] VITALS (40 sets, daily range): BP systolic 64–145; BP diastolic 41–98
[2016-10-11 05:01] LABS: ABG SAMPLE TYPE ARTERIAL; BE(vivo) -15.2 mmol/L (-2 to +3); HCO3 16.1 mmol/L (22.0-26.0); LACTATE 1.15 mmol/L (0.5-2.0); O2(CT) 17.8 mL/dL (15.0-23.0); O2Hb 92.6 % (92.0-98.0); PCO2 61.9 mmHg (35.0-45.0); PO2 79.5 mmHg (80.0-100.0); STICK SITE R.RADIAL; pH 7.032 (7.360-7.450); sO2 88.9 % (92.0-98.0)
[2016-10-11 06:19] LABS: ABG SAMPLE TYPE ARTERIAL; BE(vivo) -13.9 mmol/L (-2 to +3); LACTATE 1.23 mmol/L (0.5-2.0); O2(CT) 17.7 mL/dL (15.0-23.0); O2Hb 96.9 % (92.0-98.0); PCO2 46.4 mmHg (35.0-45.0); PO2 111.4 mmHg (80.0-100.0); pH 7.127 (7.360-7.450); sO2 96.5 % (92.0-98.0); tCO2 16.4 mmol/L (24.0-30.0)
[2016-10-11 06:20] LABS: Pressure Support 14 cm H20; STICK SITE L.RADIAL; VDS BIPAP 14/6 cc
[2016-10-11 06:39] LABS: HEMATOCRIT 39.4 % (37.0-47.0); HEMOGLOBIN 12.4 gm/dL (12.0-15.0); MCH 32.5 pg (26.0-34.0); MCHC 31.5 g/dL (28.0-37.0); MCV 103.1 fL (80.0-100.0); RBC 3.82 mil/uL (4.20-5.00); WBC 16.1 thou/uL (4.0-11.0)
[2016-10-11 06:41] LABS: CALCIUM 8.2 mg/dL (8.5-10.1); CREATININE 2.9 mg/dL (0.6-1.3); POTASSIUM 4.2 mmol/L (3.5-5.1)
[2016-10-11 08:17] LABS: ABG SAMPLE TYPE ARTERIAL; BE(vivo) -16.5 mmol/L (-2 to +3); HCO3 11.9 mmol/L (22.0-26.0); LACTATE 1.36 mmol/L (0.5-2.0); O2(CT) 18.7 mL/dL (15.0-23.0); O2Hb 97.3 % (92.0-98.0); PCO2 37.3 mmHg (35.0-45.0); PO2 128.8 mmHg (80.0-100.0); STICK SITE ART LINE; pH 7.122 (7.360-7.450); sO2 97.5 % (92.0-98.0); tCO2 13.1 mmol/L (24.0-30.0)
[2016-10-11 08:18] LABS: TIDAL VOLUME 550 ml; VDS CMV MODE cc
[2016-10-11 09:04] LABS: ABG SAMPLE TYPE MIXED VENOUS; BE(vivo) -16.9 mmol/L (-2 to +3); HCO3 12.9 mmol/L (22.0-26.0); LACTATE 1.73 mmol/L (0.5-2.0); O2Hb VENOUS 82.8 (65.0-85.0); PCO2 VENOUS 45.4 mmHg (41.0-51.0); PO2 VENOUS 53.3 mmHg (35.0-45.0); STICK SITE LINE; TIDAL VOLUME 550 ml; sO2 VENOUS 73.6 % (65.0-85.0); tCO2 14.3 mmol/L (24.0-30.0)
[2016-10-11 09:50] LABS: HEMATOCRIT 40.7 % (37.0-47.0); HEMOGLOBIN 13.3 gm/dL (12.0-15.0); MCH 33.5 pg (26.0-34.0); MCHC 32.8 g/dL (28.0-37.0); MCV 102.1 fL (80.0-100.0); PLATELET COUNT 237 thou/uL (150-400); RBC 3.98 mil/uL (4.20-5.00); RDW 16.5 % (10.5-14.5); WBC 20.4 thou/uL (4.0-11.0)
[2016-10-11 09:52] LABS: MANUAL DIFF YES
[2016-10-11 10:00] LABS: CALCIUM 8.1 mg/dL (8.5-10.1); CREATININE 2.8 mg/dL (0.6-1.3); POTASSIUM 4.3 mmol/L (3.5-5.1)
[2016-10-11 10:03] LABS: ALBUMIN 2.3 g/dL (3.4-5.0); TOTAL BILIRUBIN 0.4 mg/dL (<0.1-1.0); TOTAL PROTEIN 5.7 g/dL (6.4-8.2)
[2016-10-11 10:04] LABS: APTT 34.5 Seconds (24.5-32.8); FIBRINOGEN 484.5 mg/dL (210-360); INR 1.3; PROTIME 13.5 Seconds (9.3-11.4)
[2016-10-11 10:09] LABS: ABG SAMPLE TYPE ARTERIAL; BE(vivo) -17.9 mmol/L (-2 to +3); HCO3 11.7 mmol/L (22.0-26.0); LACTATE 1.76 mmol/L (0.5-2.0); O2(CT) 15.3 mL/dL (15.0-23.0); O2Hb VENOUS 79.2 (65.0-85.0); PCO2 VENOUS 41.4 mmHg (41.0-51.0); sO2 VENOUS 66.1 % (65.0-85.0)
[2016-10-11 10:10] LABS: STICK SITE LINE; TIDAL VOLUME 550 ml
[2016-10-11 10:17] LABS: URINE BILIRUBIN 1+ (Negative); URINE BLOOD 3+ (Negative); URINE COLOR YELLOW; URINE GLUCOSE-RANDOM* NEGATIVE (Negative); URINE KETONES NEGATIVE (Negative); URINE NITRITE POSITIVE (Negative); URINE PROTEIN (DIPSTICK) 2+ (Negative); URINE UROBILINOGEN 0.2 E.U./dl (0.2-1.0)
[2016-10-11 10:27] LABS: CASTS None Seen /LPF (None Seen); CRYSTALS None Seen /LPF (None Seen); ICTOTEST (BILI CONFIRMATORY) Negative (Negative); SQUAMOUS None Seen /LPF (0-3)
[2016-10-11 10:28] LABS: BACTERIA >30 Many /HPF (None Seen); URINE RBC >20 Many /HPF (0-2)
[2016-10-11 10:29] LABS: ABSOLUTE NEUTROPHILS 18.6 thou/uL (1.4-8.2); METAMYELOCYTES 2 %; TOTAL CELL COUNT 100
[2016-10-11 10:30] LABS: ANISOCYTOSIS 1+
[2016-10-11 11:11] LABS: ABG SAMPLE TYPE MIXED VENOUS; BE(vivo) -16.1 mmol/L (-2 to +3); HCO3 12.8 mmol/L (22.0-26.0); O2Hb VENOUS 84.7 (65.0-85.0); PO2 VENOUS 51.7 mmHg (35.0-45.0); STICK SITE LINE; TIDAL VOLUME 550 ml; sO2 VENOUS 74.3 % (65.0-85.0)
[2016-10-11 12:11] LABS: ABG SAMPLE TYPE MIXED VENOUS; BE(vivo) -17.9 mmol/L (-2 to +3); HCO3 11.1 mmol/L (22.0-26.0); LACTATE 1.64 mmol/L (0.5-2.0); O2Hb VENOUS 85.8 (65.0-85.0); PCO2 VENOUS 37.4 mmHg (41.0-51.0); PO2 VENOUS 56.1 mmHg (35.0-45.0); STICK SITE LINE; TIDAL VOLUME 550 ml; sO2 VENOUS 77.7 % (65.0-85.0); tCO2 12.2 mmol/L (24.0-30.0)
[2016-10-11 13:13] LABS: ABG SAMPLE TYPE ARTERIAL; BE(vivo) -17.6 mmol/L (-2 to +3); HCO3 11.4 mmol/L (22.0-26.0); O2(CT) 15.2 mL/dL (15.0-23.0); O2Hb VENOUS 81.9 (65.0-85.0); PCO2 VENOUS 38.2 mmHg (41.0-51.0); PO2 VENOUS 49.6 mmHg (35.0-45.0); sO2 VENOUS 70.9 % (65.0-85.0); tCO2 12.6 mmol/L (24.0-30.0)
[2016-10-11 13:14] LABS: STICK SITE LINE; TIDAL VOLUME 550 ml
[2016-10-11 13:31] LABS: CALCIUM 7.5 mg/dL (8.5-10.1); CREATININE 2.7 mg/dL (0.6-1.3); POTASSIUM 3.8 mmol/L (3.5-5.1)
[2016-10-11 13:36] LABS: CALCIUM 7.5 mg/dL (8.5-10.1); CREATININE 2.7 mg/dL (0.6-1.3); PHOSPHORUS 4.3 mg/dL (2.5-4.9); POTASSIUM 3.8 mmol/L (3.5-5.1)
[2016-10-11 13:38] LABS: APTT 38.6 Seconds (24.5-32.8); FIBRINOGEN 442.5 mg/dL (210-360); INR 1.4; PROTIME 14.2 Seconds (9.3-11.4)
[2016-10-11 14:37] LABS: ABG SAMPLE TYPE VENOUS; HCO3 11.8 mmol/L (22.0-26.0); LACTATE 1.54 mmol/L (0.5-2.0); O2(CT) 14.8 mL/dL (15.0-23.0); O2Hb VENOUS 83.3 (65.0-85.0); PCO2 VENOUS 38.1 mmHg (41.0-51.0); PO2 VENOUS 51.4 mmHg (35.0-45.0); sO2 VENOUS 73.8 % (65.0-85.0); tCO2 12.9 mmol/L (24.0-30.0)
[2016-10-11 14:38] LABS: STICK SITE LINE
[2016-10-11 19:52] LABS: APTT 34.3 Seconds (24.5-32.8); FIBRINOGEN 552.1 mg/dL (210-360); INR 1.4; PROTIME 14.1 Seconds (9.3-11.4)
[2016-10-11 19:59] LABS: CALCIUM 7.6 mg/dL (8.5-10.1); CREATININE 2.4 mg/dL (0.6-1.3); POTASSIUM 3.7 mmol/L (3.5-5.1)
[2016-10-12] VITALS (65 sets, daily range): BP systolic 85–139; BP diastolic 41–90
[2016-10-12 04:58] LABS: HEMATOCRIT 34.3 % (37.0-47.0); MCH 32.8 pg (26.0-34.0); MCHC 33.1 g/dL (28.0-37.0); MCV 99.3 fL (80.0-100.0); PLATELET COUNT 232 thou/uL (150-400); RBC 3.46 mil/uL (4.20-5.00); RDW 15.7 % (10.5-14.5); WBC 22.8 thou/uL (4.0-11.0)
[2016-10-12 04:59] LABS: HEMOGLOBIN 11.3 gm/dL (12.0-15.0); MANUAL DIFF YES
[2016-10-12 05:10] LABS: ABG SAMPLE TYPE ARTERIAL; BE(vivo) -9.7 mmol/L (-2 to +3); HCO3 15.3 mmol/L (22.0-26.0); LACTATE 1.11 mmol/L (0.5-2.0); O2(CT) 16.5 mL/dL (15.0-23.0); O2Hb 95.6 % (92.0-98.0); PCO2 31.1 mmHg (35.0-45.0); sO2 96.2 % (92.0-98.0); tCO2 16.3 mmol/L (24.0-30.0)
[2016-10-12 05:11] LABS: STICK SITE R.RADIAL; TIDAL VOLUME 550 ml
[2016-10-12 05:24] LABS: ALBUMIN 1.8 g/dL (3.4-5.0); CALCIUM 7.5 mg/dL (8.5-10.1); CREATININE 2.2 mg/dL (0.6-1.3); MAGNESIUM 1.5 mg/dL (1.8-2.4); PHOSPHORUS 2.7 mg/dL (2.5-4.9); POTASSIUM 3.2 mmol/L (3.5-5.1)
[2016-10-12 06:25] LABS: ABSOLUTE NEUTROPHILS 22.1 thou/uL (1.4-8.2); TOTAL CELL COUNT 100; TOXIC GRANULATION 1+
[2016-10-12 18:27] LABS: HEMATOCRIT 31.7 % (37.0-47.0); HEMOGLOBIN 10.8 gm/dL (12.0-15.0); MCH 33.4 pg (26.0-34.0); MCV 98.3 fL (80.0-100.0); RBC 3.23 mil/uL (4.20-5.00); RDW 15.7 % (10.5-14.5); WBC 30.1 thou/uL (4.0-11.0)
[2016-10-12 18:35] LABS: CALCIUM 7.7 mg/dL (8.5-10.1); CREATININE 1.8 mg/dL (0.6-1.3); POTASSIUM 3.3 mmol/L (3.5-5.1)
[2016-10-13] VITALS (40 sets, daily range): BP systolic 98–147; BP diastolic 44–81
[2016-10-13 03:11] LABS: HEMATOCRIT 31.3 % (37.0-47.0); HEMOGLOBIN 10.7 gm/dL (12.0-15.0); MCH 33.4 pg (26.0-34.0); MCHC 34.1 g/dL (28.0-37.0); PLATELET COUNT 193 thou/uL (150-400); RBC 3.19 mil/uL (4.20-5.00); RDW 15.4 % (10.5-14.5); WBC 24.9 thou/uL (4.0-11.0)
[2016-10-13 03:17] LABS: MANUAL DIFF YES
[2016-10-13 03:26] LABS: ALBUMIN 1.6 g/dL (3.4-5.0); CALCIUM 7.5 mg/dL (8.5-10.1); CREATININE 1.5 mg/dL (0.6-1.3); MAGNESIUM 2.1 mg/dL (1.8-2.4); PHOSPHORUS 2.3 mg/dL (2.5-4.9); POTASSIUM 3.1 mmol/L (3.5-5.1); TOTAL BILIRUBIN 0.2 mg/dL (<0.1-1.0); TOTAL PROTEIN 4.3 g/dL (6.4-8.2)
[2016-10-13 07:33] LABS: TOTAL CELL COUNT 100
[2016-10-13 07:35] LABS: ABSOLUTE NEUTROPHILS 23.7 thou/uL (1.4-8.2)
[2016-10-13 10:06] LABS: ABG COMMENT CPAP X 35 MIN; ABG SAMPLE TYPE ARTERIAL; BE(vivo) -2.6 mmol/L (-2 to +3); HCO3 23.2 mmol/L (22.0-26.0); LACTATE 0.98 mmol/L (0.5-2.0); O2(CT) 17.1 mL/dL (15.0-23.0); O2Hb 96.1 % (92.0-98.0); PCO2 44.3 mmHg (35.0-45.0); PO2 98.2 mmHg (80.0-100.0); Pressure Support 8 cm H20; STICK SITE L.BRACHIAL; pH 7.337 (7.360-7.450); sO2 97.1 % (92.0-98.0); tCO2 24.6 mmol/L (24.0-30.0)
[2016-10-13 13:23] LABS: CALCIUM 7.9 mg/dL (8.5-10.1); CREATININE 1.3 mg/dL (0.6-1.3); POTASSIUM 3.8 mmol/L (3.5-5.1)
[2016-10-14] VITALS (48 sets, daily range): BP systolic 78–189; BP diastolic 53–168
[2016-10-14 05:30] LABS: HEMATOCRIT 40.2 % (37.0-47.0); MCH 33.2 pg (26.0-34.0); MCHC 33.7 g/dL (28.0-37.0); MCV 98.4 fL (80.0-100.0); RBC 4.08 mil/uL (4.20-5.00); RDW 15.9 % (10.5-14.5); WBC 25.8 thou/uL (4.0-11.0)
[2016-10-14 05:32] LABS: HEMOGLOBIN 13.6 gm/dL (12.0-15.0)
[2016-10-14 05:52] LABS: ALBUMIN 1.8 g/dL (3.4-5.0); CALCIUM 8.1 mg/dL (8.5-10.1); CREATININE 1.1 mg/dL (0.6-1.3); MAGNESIUM 1.9 mg/dL (1.8-2.4); PHOSPHORUS 2.7 mg/dL (2.5-4.9); POTASSIUM 4.2 mmol/L (3.5-5.1)
[2016-10-14 06:16] LABS: ABG SAMPLE TYPE ARTERIAL; BE(vivo) -4.1 mmol/L (-2 to +3); HCO3 22.7 mmol/L (22.0-26.0); LACTATE 1.19 mmol/L (0.5-2.0); O2(CT) 20.7 mL/dL (15.0-23.0); O2Hb 93.8 % (92.0-98.0); PCO2 47.7 mmHg (35.0-45.0); PO2 72.9 mmHg (80.0-100.0); STICK SITE R.RADIAL; pH 7.296 (7.360-7.450); tCO2 24.2 mmol/L (24.0-30.0)
[2016-10-14 11:12] LABS: ABG SAMPLE TYPE ARTERIAL; HCO3 24.7 mmol/L (22.0-26.0); LACTATE 1.07 mmol/L (0.5-2.0); O2(CT) 19.8 mL/dL (15.0-23.0); O2Hb 97.8 % (92.0-98.0); PCO2 49.5 mmHg (35.0-45.0); PO2 156.9 mmHg (80.0-100.0); STICK SITE R.RADIAL; pH 7.316 (7.360-7.450); sO2 98.8 % (92.0-98.0); tCO2 26.2 mmol/L (24.0-30.0)
[2016-10-14 11:13] LABS: Pressure Support 8 cm H20
[2016-10-15] VITALS (35 sets, daily range): BP systolic 90–187; BP diastolic 45–112
[2016-10-15 06:53] LABS: HEMATOCRIT 38.5 % (37.0-47.0); HEMOGLOBIN 12.9 gm/dL (12.0-15.0); MCH 32.9 pg (26.0-34.0); MCHC 33.5 g/dL (28.0-37.0); MCV 98.1 fL (80.0-100.0); PLATELET COUNT 190 thou/uL (150-400); RBC 3.92 mil/uL (4.20-5.00); RDW 15.9 % (10.5-14.5); WBC 24.2 thou/uL (4.0-11.0)
[2016-10-15 06:54] LABS: MANUAL DIFF YES
[2016-10-15 07:11] LABS: ALBUMIN 1.7 g/dL (3.4-5.0); CALCIUM 8.3 mg/dL (8.5-10.1); CREATININE 0.9 mg/dL (0.6-1.3); POTASSIUM 3.9 mmol/L (3.5-5.1); TOTAL BILIRUBIN 0.3 mg/dL (<0.1-1.0); TOTAL PROTEIN 4.8 g/dL (6.4-8.2)
[2016-10-15 07:40] LABS: ABSOLUTE NEUTROPHILS 22.5 thou/uL (1.4-8.2); TOTAL CELL COUNT 100
[2016-10-15 07:41] LABS: PLATELET ESTIMATE NORMAL
[2016-10-15 11:50] LABS: ABG SAMPLE TYPE ARTERIAL; BE(vivo) 1.4 mmol/L (-2 to +3); HCO3 26.5 mmol/L (22.0-26.0); LACTATE 1.16 mmol/L (0.5-2.0); O2(CT) 17.3 mL/dL (15.0-23.0); O2Hb 96.4 % (92.0-98.0); PCO2 43.4 mmHg (35.0-45.0); PO2 101.9 mmHg (80.0-100.0); pH 7.403 (7.360-7.450); sO2 97.7 % (92.0-98.0); tCO2 27.8 mmol/L (24.0-30.0)
[2016-10-15 11:51] LABS: Pressure Support 8 cm H20; STICK SITE R.RADIAL
[2016-10-16] VITALS (25 sets, daily range): BP systolic 122–187; BP diastolic 62–137
[2016-10-17] VITALS (21 sets, daily range): BP systolic 118–188; BP diastolic 59–124
[2016-10-17 05:21] LABS: HEMATOCRIT 35.5 % (37.0-47.0); HEMOGLOBIN 11.8 gm/dL (12.0-15.0); MCH 32.9 pg (26.0-34.0); MCHC 33.4 g/dL (28.0-37.0); MCV 98.7 fL (80.0-100.0); RBC 3.6 mil/uL (4.20-5.00); RDW 15.7 % (10.5-14.5); WBC 16.6 thou/uL (4.0-11.0)
[2016-10-17 05:37] LABS: ALBUMIN 1.6 g/dL (3.4-5.0); CALCIUM 8.1 mg/dL (8.5-10.1); CREATININE 0.7 mg/dL (0.6-1.3); POTASSIUM 3.8 mmol/L (3.5-5.1); TOTAL BILIRUBIN 0.3 mg/dL (<0.1-1.0); TOTAL PROTEIN 4.7 g/dL (6.4-8.2)
[2016-10-18 03:30] VITALS: BP 172/80
[2016-10-18 07:56] VITALS: BP 182/93
[2016-10-18 12:17] VITALS: BP 152/75
[2016-10-18] MEDS ORDERED: VANCOMYCIN100 MG/M1 PO (12:48)
[2016-10-18] MEDS ORDERED: ROCEPHIN 11 GM/1001 IV (12:49)
[2016-10-18] MEDS ORDERED: FLAGYL500 MG IV (12:50)
[2016-10-18] MEDS ORDERED: XOPENEX 0.63 MG/3 M1 INH (12:50)
[2016-10-18] MEDS ORDERED: IPRATROPIU0.2 MG/1 M INH (12:50)
[2016-10-18] MEDS ORDERED: ENOXAPARIN40 MG/0.1 SUBQ (12:51)
[2016-10-18] MEDS ORDERED: CARVEDILOL12.5 MG PO (12:51)
[2016-10-18] MEDS ORDERED: LISINOPRIL10 MG PO (12:52)
[2016-10-18 15:43] VITALS: BP 156/71
== END 2016-10-18 16:39 | DRG 871 ==
LOC: ER 12:33 → 3N 13:56 → ICU 13:56 → 4S 13:56 → EROBS 13:56 → 4S 15:31 → ICU 10-11 06:51 → 3N 10-17 23:00
PROVIDERS: Emergency Medicine; Family Medicine; Internal Medicine Geriatric Medicine; Internal Medicine Nephrology; Internal Medicine Pulmonary Disease; Nurse Practitioner Acute Care; Specialist
PROC: 5A1945Z Respiratory Ventilation, 24-96 Consecutive Hours (ICD-10-PCS; principal; 2016-10-11)
PROC: 05H533Z Insertion of Infusion Device into Right Subclavian Vein, Percutaneous Approach (ICD-10-PCS; principal; 2016-10-11)
PROC: 0BH17EZ Insertion of Endotracheal Airway into Trachea, Via Natural or Artificial Opening (ICD-10-PCS; principal; 2016-10-11)
PROC: 5A09357 Assistance with Respiratory Ventilation, Less than 24 Consecutive Hours, Continuous Positive Airway Pressure (ICD-10-PCS; principal; 2016-10-11)
PROC: 03HC33Z Insertion of Infusion Device into Left Radial Artery, Percutaneous Approach (ICD-10-PCS; principal; 2016-10-11)
PROC: 5A09457 Assistance with Respiratory Ventilation, 24-96 Consecutive Hours, Continuous Positive Airway Pressure (ICD-10-PCS; 2016-10-14)
DX: A41.9 Sepsis, unspecified organism (principal); R65.21 Severe sepsis with septic shock; J96.01 Acute respiratory failure with hypoxia; J96.02 Acute respiratory failure with hypercapnia; G93.41 Metabolic encephalopathy; N17.0 Acute kidney failure with tubular necrosis; J69.0 Pneumonitis due to inhalation of food and vomit; E44.0 Moderate protein-calorie malnutrition; J98.11 Atelectasis; G72.81 Critical illness myopathy; E87.4 Mixed disorder of acid-base balance; E87.1 Hypo-osmolality and hyponatremia; A04.7 Enterocolitis due to Clostridium difficile; I47.1 Supraventricular tachycardia; K57.92 Diverticulitis of intestine, part unspecified, without perforation or abscess without bleeding; N30.90 Cystitis, unspecified without hematuria; B96.4 Proteus (mirabilis) (morganii) as the cause of diseases classified elsewhere; K80.20 Calculus of gallbladder without cholecystitis without obstruction; E16.2 Hypoglycemia, unspecified; R13.12 Dysphagia, oropharyngeal phase; F32.9 Major depressive disorder, single episode, unspecified; F41.9 Anxiety disorder, unspecified; K12.1 Other forms of stomatitis; J44.9 Chronic obstructive pulmonary disease, unspecified; E87.6 Hypokalemia; E88.09 Other disorders of plasma-protein metabolism, not elsewhere classified; I50.9 Heart failure, unspecified; I11.0 Hypertensive heart disease with heart failure; D75.89 Other specified diseases of blood and blood-forming organs; E05.90 Thyrotoxicosis, unspecified without thyrotoxic crisis or storm; R16.0 Hepatomegaly, not elsewhere classified; I48.0 Paroxysmal atrial fibrillation; E66.9 Obesity, unspecified; Z68.32 Body mass index [BMI] 32.0-32.9, adult; Z87.81 Personal history of (healed) traumatic fracture; Z88.8 Allergy status to other drugs, medicaments and biological substances; Z87.891 Personal history of nicotine dependence
CPT/HCPCS: 10078; 10096; 10100

== ENCOUNTER 2017-01-02 17:15 | Inpatient (IN) | payer OTHER, BC ==
[~2017-01-02] VITALS: Ht 162.6 cm; Wt 78.0 kg
--- NOTE | ~2017-01-02 | H ---
[facility] [place] [address] HISTORY AND PHYSICAL Name: DENZEL BENTLEY Room #: 240-P ADM IN M.R.#: [id number] Admission: 01/02/17 Attend Phys: Contreras Shafer MD Discharge: Date of : 39 Report #: [id number] THIS REPORT FOR: //name// CC: Contreras Worley DATE OF SERVICE: 01/02/2017 CHIEF COMPLAINT: Weakness. HISTORY OF PRESENT ILLNESS: The patient is a 76-year-old female who came to the Emergency Room from her independent living senior apartment with complaints of diarrhea. She said for several days she has had uncontrolled diarrhea. She has a history of C. diff, although study done by home health just last week was negative for C. diff toxin. She has previously completed a course of oral vancomycin several months ago after a hospitalization for sepsis due to C. diff. She has felt weak and just unable to get up out of bed. She said she has been lying there for several days and really has not had much to eat or drink for several days. Home health has been , but really could offer her nothing. Her daughter called today with reports of the diarrhea and could not get her into the office, so she was directed to ER. PAST MEDICAL HISTORY: C. diff colitis, COPD, history of encephalopathy, she has had a history of ICU admission and respiratory failure with intubation a couple of years ago, history of UTI, PSVT, paroxysmal AFib, thoracic vertebral compression fractures with vertebroplasty. FAMILY HISTORY: Unknown. SOCIAL HISTORY: Remote tobacco and alcohol history, but none recently. ALLERGIES: No known drug allergies. MEDICATIONS: Coreg, amiodarone, lisinopril, Flomax, and Zoloft. REVIEW OF SYSTEMS: She just complains of weakness. Denies headache, chest pain, shortness of breath, nausea, vomiting, dysuria, or syncope. PHYSICAL EXAMINATION: VITAL SIGNS: Per the nursing note. GENERAL: She is awake and alert, in no distress. LUNGS: Clear. HEART: Tachy, irregular. ABDOMEN: Soft, normoactive bowel sounds. Slightly tender, no rebound or guarding. EXTREMITIES: No cyanosis, clubbing or edema. [facility] [address] [place] [address] HISTORY AND PHYSICAL Name: DENZEL BENTLEY Room #: [address] [place] [address] [place] [facility].#: [id number] Admission: 01/02/17 Attend Phys: Contreras Shafer MD Discharge: Date of : 39 Report #: [id number] NEUROLOGIC: She moves all extremities. She knows she is at the hospital, recognizes me. ASSESSMENT: 1. Rapid atrial fibrillation. 2. Abdominal pain. 3. History of Clostridium difficile. 4. Chronic obstructive pulmonary disease. PLAN: She will be admitted for medical treatment and evaluation. Cultures, studies, and labs are pending. I will ask cardiology to see her as well. <ELECTRONICALLY SIGNED> By: Contreras Shafer MD 01/03/17 0957 1759 1848 Contreras Shafer MD /nicko
--- NOTE | ~2017-01-02 | HC ---
[facility] [place] [address] CONSULTATION Name: MCDENZEL Martinez Room #: 240-P ADM IN M.R.#: [id number] Admission: 01/02/17 Attend Phys: Contreras Shafer MD Discharge: Date of : 39 Report #: [id number] THIS REPORT FOR: //name// CC: Contreras Worley Critical Care Renal Consult ICU room 240. PATIENT IDENTIFICATION: This 76-year-old female is admitted with a several day history of acute diarrhea. Of note is that the patient has had previous bouts of C. difficile colitis. She is awake and alert and tells me that this is much like her previous episodes of C. difficile. The patient has developed acute kidney injury with evolving metabolic acidosis. Renal consultation is requested for further assistance. Of note is that the patient has had acute kidney injury in the past with creatinine elevation to 2.9 in 09/2015 and again in 09/2016. She was admitted with a creatinine of 4.3 and renal consultation is requested. PAST MEDICAL HISTORY: Remarkable as described above for previous episodes of C. difficile colitis. She has longstanding COPD with acute respiratory failure requiring intubation. She has a history of paroxysmal atrial fibrillation, previous urinary tract infection and a prior vertebroplasty. ALLERGIES: She has no known drug allergies. MEDICATIONS ON ADMISSION: Include carvedilol, amiodarone, lisinopril, Flomax, and Zoloft. PERSONAL AND SOCIAL HISTORY: The patient has a remote history of tobacco and alcohol abuse. She is not using these presently. There is no history of substance abuse. FAMILY HISTORY AND REVIEW OF SYSTEMS: Not obtainable from the patient at this time. PHYSICAL EXAMINATION: GENERAL: Reveals a well developed, acutely ill female who appears clinically quite dehydrated. There is poor skin turgor, dry mucous membranes and flat neck veins. EXTREMITIES: Cool, but not frankly mottled. There is no peripheral edema or adenopathy detectable. VITAL SIGNS: Blood pressure 85/49, pulse 107, temperature 97.4, respirations 21. SKIN: Warm and dry. There is no rash or erythema noted. HEENT: The head is normocephalic and atraumatic. The sclerae are white. The pharynx is remarkable for dry mucous membranes. [address] [address] CONSULTATION Name: DENZEL BENTLEY Room #: [address] [place] [address] [place] ..#: [id number] Admission: 01/02/17 Attend Phys: Contreras Shafer MD Discharge: Date of : 39 Report #: [id number] NECK: Veins are flat. CHEST: Lungs olivia reveal scattered rhonchi without evidence of consolidation, wheezing or crackles. CARDIOVASCULAR: Reveals a resting tachycardia without gross murmur or rub. ABDOMEN: Soft and nontender except in the left lower quadrant where there is some mild guarding without pawan rebound noted. NEUROLOGIC: Reveals the patient to be alert and responsive. She is a fair historian without evidence of focal neurologic deficit. LABORATORY STUDIES: Available at this time include sodium 134, potassium 3.4, chloride 106, CO2 16, BUN 66, creatinine 2.8, glucose 80, AST 31. Total bilirubin 0.4, calcium 7.2. INR 1.4. White blood cell count 18,200, hemoglobin 11.7, hematocrit 35.4, platelet count 209,000. Urinalysis reveals clear yellow urine, specific gravity 1.020, pH 8.5, 2+ protein, 3+ blood, positive nitrites. Arterial blood gases pH 7.21, pCO2 35, pO2 82 on room air. ASSESSMENT AND PLAN: 1. Acute kidney injury in this patient with apparent recurrent Clostridium difficile colitis. At this time, she needs vigorous isotonic bicarbonate containing IV fluid resuscitation. We will administer 2 amps of sodium bicarbonate as well as potassium supplementation at this time. She will receive high volume isotonic IV fluid replacement at 500 mL per hour with repeat laboratory studies this afternoon. I suspect we will reduce her IV fluid rates in the late afternoon. 2. Metabolic acidosis secondary to sepsis and lower gastrointestinal volume loss with diarrhea. 3. Suspected Clostridium difficile, on therapy per ID/Dr. Goins. 4. Sepsis/systemic inflammatory response syndrome per protocol. 5. Hypokalemia for replacement. We will repeat labs this afternoon and continue IV fluid resuscitation as described above. We will follow serial laboratory studies, I and O and daily weights. Please see orders. Critical care time 60 minutes. <ELECTRONICALLY SIGNED> By: Yonis Gillette MD 01/04/17 1001 1131 1421 Yonis Gillette MD /nt
--- NOTE | ~2017-01-02 | EKG ---
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
--- NOTE | ~2017-01-02 | HC ---
[facility] [place] [address] [place] [address] CONSULTATION Name: DENZEL BENTLEY Martinez Room #: 240-P [facility] IN ..#: [id number] Admission: 01/02/17 Attend Phys: Contreras Shafer MD Discharge: Date of : 39 Report #: [id number] THIS REPORT FOR: //name// CC: Contreras Worley REASON FOR CONSULTATION: I was asked to evaluate concerning septic shock and C. difficile colitis. HISTORY OF PRESENT ILLNESS: The patient is a 76-year-old who I have known previously with C. difficile colitis. She comes back in with similar symptoms, been not feeling well for about 5 days. She states that she has not been eating or drinking during that time and has developed perfuse diarrhea with incontinence. She presents to the emergency room hypotensive and atrial fibrillation with rapid ventricular response. She was given IV fluids through the night and converted to sinus rhythm. She continues to be hypotensive with blood pressure in the 80s and MAP in the 50s. She has peripheral IVs in place. She has remained on room air with adequate O2 saturations. There has been no cough or sputum production. She has mild abdominal pain. Her most significant issue is incontinence of liquid stool. She now has indwelling Meneses catheter. Her urine output has been 30-40 mL in hour. She has received over 3 liters of fluid over the last 12 hours. PAST MEDICAL HISTORY: C. difficile colitis with pseudomembranous colitis, COPD, PSVT, paroxysmal atrial fibrillation, urinary tract infection, thoracic vertebral compression fracture status post vertebroplasty. ALLERGIES: None known. MEDICATIONS: As noted on her MAR including Coreg, amiodarone, lisinopril, Flomax, and Zoloft. Now on vancomycin orally and metronidazole. FAMILY HISTORY: Noncontributory. SOCIAL HISTORY: She has had past tobacco and alcohol use, none recently. She has been residing at [place]. REVIEW OF SYSTEMS: She denies any chest pain, cough or sputum production. No dysuria prior to her indwelling Meneses catheter. No rash or decubiti. PHYSICAL EXAMINATION: VITAL SIGNS: Currently afebrile. O2 saturation adequate on room air. GENERAL: Alert and cooperative. She was oriented. SKIN: Unremarkable. LYMPH: Unremarkable. MOUTH: Unremarkable. NECK: Supple. [address] [address] CONSULTATION Name: DENZEL BENTLEY Room #: [address] [place] [address] [place] .R.#: [id number] Admission: 01/02/17 Attend Phys: Contreras Shafer MD Discharge: Date of : 39 Report #: [id number] LUNGS: Clear. HEART: Regular without appreciable murmur, gallop, or rub. ABDOMEN: Mildly distended, diffusely tender, no hepatosplenomegaly or mass. She had no rebound or guarding. Incontinent of green liquid stool. Indwelling Meneses catheter with unremarkable external genitalia. EXTREMITIES: Unremarkable. NEUROLOGIC: Normal. LABORATORY STUDIES: CT scan of the abdomen shows diffuse colitis. Chest x-ray was clear. Sodium 129, potassium 3.6, bicarbonate 21, creatinine 4.3, it is up from her baseline of 0.7. Liver function tests normal. Troponin 6, hemoglobin 12.6, WBC 18.4 with 18% bands, platelet count 265,000. Urinalysis positive for wbc's and bacteria. Blood and urine cultures are pending. IMPRESSION: Septic shock with Clostridium difficile colitis, pseudomembranous colitis, and also has evidence of cystitis. She has atrial fibrillation with rapid ventricular response, now responded to medical management. She has non-ST segment elevation myocardial infarction with elevated troponin. She has acute renal failure. Recommend sepsis protocol, IV access with a PICC line. Check CVP, repeat laboratory studies and full support. The patient may require a fecal transplant. We will see if we can get family members involve. <ELECTRONICALLY SIGNED> By: Leonel Goins MD 01/03/17 1232 0941 1019 Leonel Goins MD /nt
--- NOTE | ~2017-01-02 | HC ---
[facility] [place] [address] CONSULTATION Name: DENZEL BENTLEY Room #: 240-P [facility] IN ..#: [id number] Admission: 01/02/17 Attend Phys: Contreras Shafer MD Discharge: Date of : 39 Report #: [id number] THIS REPORT FOR: //name// CC: Contreras Worley REASON FOR CONSULTATION: Atrial fibrillation, elevated troponin. HISTORY OF PRESENT ILLNESS: The patient is an elderly woman who lives in local alf. She has had recurrent episodes of C. difficile colitis complicated in the past by toxemia and sepsis as well as metabolic encephalopathy. She has had recurrent episodes of paroxysmal atrial fibrillation, has been maintained on carvedilol and amiodarone. Typically in the setting of respiratory failure, colitis, or renal failure, she would develop atrial fibrillation and today's episode is no different. She now presents with a 1-week history of diarrhea. She was told of having recurrent C. difficile colitis and was brought to the emergency department where she was found to be in atrial fibrillation with a rapid ventricular response. She denies fevers, chills, chest pain, abdominal pain, shortness of breath, near syncope or syncope. MEDICATIONS: At the time of her similar episode in September included hydralazine 50 mg, lisinopril 10 mg daily, amiodarone 200 mg daily, carvedilol 12.5 mg daily. PAST MEDICAL HISTORY: Medical records have been reviewed and include a history of hypertension, C. difficile, spontaneous psoas muscle hematoma with associated hemodynamic compromise, paroxysmal atrial fibrillation, history of acute kidney failure in the past, vertebral compression fracture, COPD, right ankle fracture, prior alcohol dependency, prior narcotic dependency with nonintentional drug overdose. ALLERGIES: She is allergic to NICKEL. SOCIAL HISTORY: She is . She lives in an assisted living environment. FAMILY HISTORY: Unremarkable for premature coronary artery disease. REVIEW OF SYSTEMS: All systems negative except as that noted above. PHYSICAL EXAMINATION: GENERAL: An elderly woman who is alert and in no distress. VITAL SIGNS: Blood pressure is 100/49, heart rate of 110 and irregular, respirations unlabored at 18. She is afebrile. HEENT: There are neither xanthelasma, subcutaneous xanthomata, oral mucosal or digital cyanosis or kyphoscoliosis present. [address] [address] CONSULTATION Name: DENZEL BENTLEY Room #: [address] [place] [address] [place] .R.#: [id number] Admission: 01/02/17 Attend Phys: Contreras Shafer MD Discharge: Date of : 39 Report #: [id number] CHEST: Clear to auscultation and percussion. CARDIOVASCULAR: An irregularly irregular rhythm with normal S1, S2. ABDOMEN: Soft and nontender. No rebound or guarding. EXTREMITIES: Without cyanosis, clubbing or edema. Radial pulses are 2+. NEUROLOGIC: She is alert with a nonfocal exam. LABORATORY DATA: Sodium is 127, potassium 3.6, creatinine 4.3. ProBNP of 1723. Troponin 6. White count 18.4, hemoglobin 12, hematocrit 265. C. difficile toxin is pending. CT of the abdomen demonstrates circumferential colonic wall thickening consistent with colitis, cholelithiasis. Chest x-ray is normal. EKG, atrial fibrillation with nonspecific ST and T-wave abnormality. IMPRESSION: 1. Very likely recurrent clostridium difficile colitis. 2. Acute kidney injury. 3. Paroxysmal atrial fibrillation now with a rapid ventricular response, clinically asymptomatic. 4. Non-Q-wave myocardial infarction, likely related to supply demand mismatch (type 2 myocardial infarction), history of normal left ventricular systolic function by prior echocardiography. 5. History of hypertension. RECOMMENDATIONS: 1. Intensify amiodarone dosing. 2. Despite her elevated CHADS-VASc score, anticoagulants were contraindicated in the setting of active colitis and prior history of spontaneous hemodynamically compromising psoas muscle hematoma. 3. IV fluid hydration; hold CHRISSY inhibitor therapy. 4. Follow up electrocardiogram. 5. Thyroid function studies. Thank you for asking me to participate in the care of this very ill woman. <ELECTRONICALLY SIGNED> By: Jacob Suazo MD, [facility] 01/04/17 0835 2138 0309 Jacob Suazo MD, FACC /nt
[~2017-01-02 17:15] MED LIST changes: +CARVEDILOL12.5 MG PO; +ENOXAPARIN40 MG/0.1 SUBQ; +FLAGYL500 MG IV; +IPRATROPIU0.2 MG/1 M INH; +ROCEPHIN 11 GM/1001 IV; +VANCOMYCIN100 MG/M1 PO
[2017-01-02 17:16] VITALS: BP 98/52
[2017-01-02 19:21] LABS: HEMATOCRIT 38.1 % (37.0-47.0); HEMOGLOBIN 12.6 gm/dL (12.0-15.0); MCH 33.6 pg (26.0-34.0); MCV 101.8 fL (80.0-100.0); PLATELET COUNT 265 thou/uL (150-400); RBC 3.74 mil/uL (4.20-5.00); RDW 15.4 % (10.5-14.5); WBC 18.4 thou/uL (4.0-11.0)
[2017-01-02 19:22] LABS: MANUAL DIFF YES
[2017-01-02 19:30] LABS: CALCIUM 7.9 mg/dL (8.5-10.1); CREATININE 4.3 mg/dL (0.6-1.0); POTASSIUM 3.6 mmol/L (3.5-5.1)
[2017-01-02 19:37] LABS: ALBUMIN 2.2 g/dL (3.4-5.0); TOTAL BILIRUBIN 0.5 mg/dL (<0.1-1.0); TOTAL PROTEIN 5.6 g/dL (6.4-8.2)
[2017-01-02 19:39] LABS: TROPONIN-I 6.08 ng/mL (<0.04-0.07)
[2017-01-02 19:42] LABS: ABSOLUTE NEUTROPHILS 14.9 thou/uL (1.4-8.2); ANISOCYTOSIS 2+; MACROCYTES 1+; METAMYELOCYTES 1 %; POLYCHROMASIA OCCASIONAL; TOTAL CELL COUNT 100
[2017-01-02 21:35] VITALS: BP 88/48
[2017-01-02 22:43] VITALS: BP 79/54
[2017-01-02 23:00] VITALS: BP 112/77
[2017-01-03] VITALS (48 sets, daily range): BP systolic 55–141; BP diastolic 27–83
[2017-01-03 00:05] LABS: URINE BLOOD 3+ (Negative); URINE COLOR YELLOW; URINE GLUCOSE-RANDOM* NEGATIVE (Negative); URINE KETONES NEGATIVE (Negative); URINE LEUKOCYTES-REFLEX 3+ (Negative); URINE PROTEIN (DIPSTICK) 2+ (Negative); URINE UROBILINOGEN 0.2 E.U./dl (0.2-1.0)
[2017-01-03 00:09] LABS: ICTOTEST (BILI CONFIRMATORY) Negative (Negative); URINE BILIRUBIN NEGATIVE (Negative)
[2017-01-03 00:13] LABS: CASTS None Seen /LPF (None Seen); SQUAMOUS None Seen /LPF (0-3); URINE WBC-REFLEX >25 Many /HPF (0-5)
[2017-01-03 00:14] LABS: CRYSTALS None Seen /LPF (None Seen); URINE RBC 0-2 Rare /HPF (0-2)
[2017-01-03 09:56] LABS: HEMATOCRIT 38.8 % (37.0-47.0); HEMOGLOBIN 12.6 gm/dL (12.0-15.0); MCH 33.4 pg (26.0-34.0); MCHC 32.6 g/dL (28.0-37.0); MCV 102.4 fL (80.0-100.0); PLATELET COUNT 269 thou/uL (150-400); RBC 3.78 mil/uL (4.20-5.00); RDW 15.7 % (10.5-14.5); WBC 18.9 thou/uL (4.0-11.0)
[2017-01-03 09:57] LABS: MANUAL DIFF YES
[2017-01-03 10:19] LABS: CALCIUM 7.7 mg/dL (8.5-10.1); CREATININE 3.4 mg/dL (0.6-1.0); POTASSIUM 3.5 mmol/L (3.5-5.1); TOTAL BILIRUBIN 0.4 mg/dL (<0.1-1.0); TOTAL PROTEIN 5.2 g/dL (6.4-8.2)
[2017-01-03 10:20] LABS: TOTAL CELL COUNT 100
[2017-01-03 10:21] LABS: ABSOLUTE NEUTROPHILS 16.8 thou/uL (1.4-8.2); METAMYELOCYTES 1 %; MYELOCYTES 1 %
[2017-01-03 10:22] LABS: ANISOCYTOSIS 1+
[2017-01-03 11:04] LABS: ABG SAMPLE TYPE ARTERIAL; BE(vivo) -13.1 mmol/L (-2 to +3); HCO3 13.9 mmol/L (22.0-26.0); LACTATE 0.94 mmol/L (0.5-2.0); O2(CT) 16.3 mL/dL (15.0-23.0); O2Hb 92.9 % (92.0-98.0); PCO2 35.6 mmHg (35.0-45.0); STICK SITE L.BRACHIAL; pH 7.208 (7.360-7.450); sO2 93.9 % (92.0-98.0); tCO2 14.9 mmol/L (24.0-30.0)
[2017-01-03 11:20] LABS: HEMATOCRIT 35.4 % (37.0-47.0); HEMOGLOBIN 11.7 gm/dL (12.0-15.0); MCHC 33.2 g/dL (28.0-37.0); MCV 102.4 fL (80.0-100.0); RBC 3.45 mil/uL (4.20-5.00); RDW 15.5 % (10.5-14.5); WBC 18.2 thou/uL (4.0-11.0)
[2017-01-03 11:27] LABS: CALCIUM 7.2 mg/dL (8.5-10.1); CREATININE 2.8 mg/dL (0.6-1.0); POTASSIUM 3.4 mmol/L (3.5-5.1)
[2017-01-03 11:35] LABS: APTT 33.1 Seconds (24.5-32.8); INR 1.2; PROTIME 12.7 Seconds (9.3-11.4)
[2017-01-03 12:40] LABS: ABG SAMPLE TYPE VENOUS; BE(vivo) -8.8 mmol/L (-2 to +3); HCO3 18.3 mmol/L (22.0-26.0); LACTATE 1.05 mmol/L (0.5-2.0); O2(CT) 12.1 mL/dL (15.0-23.0); O2Hb VENOUS 67.5 (65.0-85.0); PCO2 VENOUS 43.8 mmHg (41.0-51.0); PO2 VENOUS 39.5 mmHg (35.0-45.0); sO2 VENOUS 65.2 % (65.0-85.0); tCO2 19.7 mmol/L (24.0-30.0)
[2017-01-03 12:41] LABS: STICK SITE LINE
[2017-01-03 13:46] LABS: ABG SAMPLE TYPE VENOUS; BE(vivo) -6.3 mmol/L (-2 to +3); HCO3 20.7 mmol/L (22.0-26.0); LACTATE 0.97 mmol/L (0.5-2.0); O2(CT) 12.4 mL/dL (15.0-23.0); O2Hb VENOUS 73.2 (65.0-85.0); PO2 VENOUS 42.6 mmHg (35.0-45.0); STICK SITE LINE; tCO2 22.1 mmol/L (24.0-30.0)
[2017-01-03 13:59] LABS: ALBUMIN 1.9 g/dL (3.4-5.0); CALCIUM 7.4 mg/dL (8.5-10.1); CREATININE 2.6 mg/dL (0.6-1.0); MAGNESIUM 1.6 mg/dL (1.8-2.4); PHOSPHORUS 4.1 mg/dL (2.5-4.9); POTASSIUM 3.7 mmol/L (3.5-5.1)
[2017-01-03 16:00] LABS: POTASSIUM 3.1 mmol/L (3.5-5.1)
[2017-01-03 16:10] LABS: APTT 32.7 Seconds (24.5-32.8); FIBRINOGEN 342.5 mg/dL (210-360); INR 1.3; PROTIME 13.4 Seconds (9.3-11.4)
[2017-01-03 17:06] LABS: ABG SAMPLE TYPE VENOUS; BE(vivo) -4.8 mmol/L (-2 to +3); HCO3 21.8 mmol/L (22.0-26.0); LACTATE 0.97 mmol/L (0.5-2.0); O2Hb VENOUS 74.5 (65.0-85.0); PCO2 VENOUS 46.8 mmHg (41.0-51.0); sO2 VENOUS 71.6 % (65.0-85.0); tCO2 23.3 mmol/L (24.0-30.0)
[2017-01-03 17:07] LABS: STICK SITE LINE
[2017-01-03 19:19] LABS: ABG SAMPLE TYPE VENOUS; BE(vivo) -6.3 mmol/L (-2 to +3); HCO3 19.7 mmol/L (22.0-26.0); LACTATE 1.09 mmol/L (0.5-2.0); O2(CT) 12.8 mL/dL (15.0-23.0); O2Hb VENOUS 72.3 (65.0-85.0); PCO2 VENOUS 40.9 mmHg (41.0-51.0); PO2 VENOUS 40.4 mmHg (35.0-45.0); sO2 VENOUS 70.4 % (65.0-85.0)
[2017-01-03 19:20] LABS: FIO2 21 %; STICK SITE LINE
[2017-01-03 20:06] LABS: CALCIUM 7.3 mg/dL (8.5-10.1); CREATININE 2.3 mg/dL (0.6-1.0)
[2017-01-03 20:15] LABS: APTT 29.8 Seconds (24.5-32.8); INR 1.2; PROTIME 12.3 Seconds (9.3-11.4)
[2017-01-04] VITALS (40 sets, daily range): BP systolic 83–135; BP diastolic 37–77
[2017-01-04 04:49] LABS: HEMATOCRIT 36.4 % (37.0-47.0); HEMOGLOBIN 12.3 gm/dL (12.0-15.0); MCH 33.7 pg (26.0-34.0); MCHC 33.8 g/dL (28.0-37.0); MCV 99.7 fL (80.0-100.0); PLATELET COUNT 236 thou/uL (150-400); RBC 3.65 mil/uL (4.20-5.00); RDW 15.4 % (10.5-14.5); WBC 21.7 thou/uL (4.0-11.0)
[2017-01-04 04:53] LABS: MANUAL DIFF YES
[2017-01-04 05:01] LABS: ALBUMIN 1.9 g/dL (3.4-5.0); CALCIUM 7.4 mg/dL (8.5-10.1); MAGNESIUM 1.4 mg/dL (1.8-2.4); PHOSPHORUS 3.2 mg/dL (2.5-4.9); POTASSIUM 3.6 mmol/L (3.5-5.1); TOTAL BILIRUBIN 0.3 mg/dL (<0.1-1.0)
[2017-01-04 05:45] LABS: ABSOLUTE NEUTROPHILS 19.1 thou/uL (1.4-8.2); METAMYELOCYTES 1 %; MYELOCYTES 2 %; PROMYELOCYTES 1 %; TOTAL CELL COUNT 100
[2017-01-05] VITALS (13 sets, daily range): BP systolic 96–147; BP diastolic 48–89
[2017-01-05 05:24] LABS: HEMATOCRIT 34.9 % (37.0-47.0); HEMOGLOBIN 11.7 gm/dL (12.0-15.0); MCH 33.5 pg (26.0-34.0); MCHC 33.6 g/dL (28.0-37.0); MCV 99.9 fL (80.0-100.0); RBC 3.49 mil/uL (4.20-5.00); RDW 15.9 % (10.5-14.5); WBC 15.1 thou/uL (4.0-11.0)
[2017-01-05 05:33] LABS: ALBUMIN 1.7 g/dL (3.4-5.0); CALCIUM 7.5 mg/dL (8.5-10.1); CREATININE 1.3 mg/dL (0.6-1.0); MAGNESIUM 1.9 mg/dL (1.8-2.4); PHOSPHORUS 2.3 mg/dL (2.5-4.9); POTASSIUM 3.4 mmol/L (3.5-5.1)
[2017-01-05] MEDS ORDERED: BENADRYL25 MG PO (19:54)
[2017-01-06 03:54] VITALS: BP 149/68
[2017-01-06 05:51] LABS: HEMATOCRIT 39.1 % (37.0-47.0); HEMOGLOBIN 12.9 gm/dL (12.0-15.0); MCH 33.3 pg (26.0-34.0); MCHC 32.9 g/dL (28.0-37.0); MCV 101.1 fL (80.0-100.0); RBC 3.87 mil/uL (4.20-5.00); RDW 15.8 % (10.5-14.5); WBC 19.8 thou/uL (4.0-11.0)
[2017-01-06 06:01] LABS: ALBUMIN 1.9 g/dL (3.4-5.0); CALCIUM 7.7 mg/dL (8.5-10.1); CREATININE 0.9 mg/dL (0.6-1.0); MAGNESIUM 1.7 mg/dL (1.8-2.4); PHOSPHORUS 2.2 mg/dL (2.5-4.9); POTASSIUM 4.1 mmol/L (3.5-5.1)
[2017-01-06 07:01] VITALS: BP 146/70
[2017-01-06 16:01] VITALS: BP 147/74
[2017-01-06 20:03] VITALS: BP 131/61
[2017-01-07 03:08] VITALS: BP 155/83
[2017-01-07 05:37] LABS: HEMATOCRIT 38.1 % (37.0-47.0); MCH 33.7 pg (26.0-34.0); MCV 99.2 fL (80.0-100.0); RBC 3.85 mil/uL (4.20-5.00); RDW 15.9 % (10.5-14.5); WBC 19.6 thou/uL (4.0-11.0)
[2017-01-07 05:56] LABS: ALBUMIN 1.8 g/dL (3.4-5.0); CALCIUM 7.8 mg/dL (8.5-10.1); CREATININE 0.9 mg/dL (0.6-1.0); PHOSPHORUS 2.6 mg/dL (2.5-4.9); POTASSIUM 5.1 mmol/L (3.5-5.1)
[2017-01-07 08:55] VITALS: BP 101/66
[2017-01-07 17:18] VITALS: BP 153/68
[2017-01-07 19:40] VITALS: BP 138/72
[2017-01-08 04:07] VITALS: BP 146/76
[2017-01-08 04:46] LABS: HEMATOCRIT 36.1 % (37.0-47.0); HEMOGLOBIN 12.2 gm/dL (12.0-15.0); MCH 33.9 pg (26.0-34.0); MCHC 33.6 g/dL (28.0-37.0); PLATELET COUNT 194 thou/uL (150-400); RBC 3.58 mil/uL (4.20-5.00); RDW 15.7 % (10.5-14.5)
[2017-01-08 04:51] LABS: MANUAL DIFF YES
[2017-01-08 05:11] LABS: ALBUMIN 1.5 g/dL (3.4-5.0); CREATININE 0.8 mg/dL (0.6-1.0); PHOSPHORUS 2.4 mg/dL (2.5-4.9); POTASSIUM 4.4 mmol/L (3.5-5.1)
[2017-01-08 05:30] LABS: METAMYELOCYTES 1 %; TOTAL CELL COUNT 100
[2017-01-08 07:24] VITALS: BP 146/85
[2017-01-08 08:32] LABS: URINE BILIRUBIN NEGATIVE (Negative); URINE BLOOD 2+ (Negative); URINE COLOR YELLOW; URINE GLUCOSE-RANDOM* NEGATIVE (Negative); URINE KETONES NEGATIVE (Negative); URINE LEUKOCYTES-REFLEX 2+ (Negative); URINE PROTEIN (DIPSTICK) NEGATIVE (Negative); URINE SPECIFIC GRAVITY <= 1.005 (1.003-1.035); URINE UROBILINOGEN 0.2 E.U./dl (0.2-1.0)
[2017-01-08 08:48] LABS: AMORPHOUS URATES Few /LPF (None Seen); CASTS None Seen /LPF (None Seen); SQUAMOUS 0-3 Few /LPF (0-3); URINE RBC None Seen /HPF (0-2)
[2017-01-08 17:23] VITALS: BP 167/90
[2017-01-08 19:40] VITALS: BP 151/76
[2017-01-09 03:40] VITALS: BP 166/89
[2017-01-09 06:24] LABS: ALBUMIN 1.9 g/dL (3.4-5.0); CALCIUM 8.1 mg/dL (8.5-10.1); CREATININE 0.7 mg/dL (0.6-1.0); MAGNESIUM 1.6 mg/dL (1.8-2.4); POTASSIUM 4.8 mmol/L (3.5-5.1)
[2017-01-09 19:34] VITALS: BP 170/79
[2017-01-10 04:24] VITALS: BP 151/76
[2017-01-10 07:34] VITALS: BP 170/101
[2017-01-10 16:02] VITALS: BP 153/74
[2017-01-10 19:09] VITALS: BP 126/68
[2017-01-11 02:40] VITALS: BP 145/73
[2017-01-11 08:42] VITALS: BP 157/83
[2017-01-11 10:55] VITALS: BP 157/83
[2017-01-11] MEDS ORDERED: CARDIZEM CD 18180 M3 PO (11:34)
[2017-01-11] MEDS ORDERED: VANCOMYCIN100 MG/ML PO (11:34)
[2017-01-11] MEDS ORDERED: DIPHENHIST25 M1 PO (11:34)
[2017-01-11] MEDS ORDERED: ASPIR 8181 MG PO (11:34)
[2017-01-11] MEDS ORDERED: DUONEB 2.5-0.5 M3 ML INH (11:34)
== END 2017-01-11 16:45 | DRG 871 ==
LOC: ER 17:15 → ICU 17:55 → EROBS 17:55 → ICU 21:09 → 3N 01-05 11:07
PROVIDERS: Hospitalist; Internal Medicine; Internal Medicine Geriatric Medicine; Internal Medicine Nephrology; Physician Assistant; Specialist
PROC: B548ZZA Ultrasonography of Superior Vena Cava, Guidance (ICD-10-PCS; principal; 2017-01-03)
PROC: 02HV33Z Insertion of Infusion Device into Superior Vena Cava, Percutaneous Approach (ICD-10-PCS; principal; 2017-01-03)
DX: A41.9 Sepsis, unspecified organism (principal); I21.4 Non-ST elevation (NSTEMI) myocardial infarction; R65.21 Severe sepsis with septic shock; G93.41 Metabolic encephalopathy; A04.7 Enterocolitis due to Clostridium difficile; N17.9 Acute kidney failure, unspecified; F11.20 Opioid dependence, uncomplicated; I10 Essential (primary) hypertension; J44.9 Chronic obstructive pulmonary disease, unspecified; F41.8 Other specified anxiety disorders; R73.9 Hyperglycemia, unspecified; E83.42 Hypomagnesemia; M54.16 Radiculopathy, lumbar region; I48.0 Paroxysmal atrial fibrillation; E87.6 Hypokalemia; Z79.899 Other long term (current) drug therapy; Z88.8 Allergy status to other drugs, medicaments and biological substances; Z82.49 Family history of ischemic heart disease and other diseases of the circulatory system
CPT/HCPCS: 10096; 10203; 27000

== ENCOUNTER 2017-06-18 06:46 | Emergency (ER) | payer OTHER, BC ==
[~2017-06-18] VITALS: Ht 162.6 cm; Wt 74.8 kg
--- NOTE | ~2017-06-18 | EKG ---
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
[~2017-06-18 06:46] MED LIST changes: +ACIDOPHILUS1 EAC4 PO; +ASPIR 8181 MG PO; +BENADRYL25 MG PO; +CARDIZEM CD 18180 M3 PO; +CARVEDILOL25 MG PO; +DIPHENHIST25 M1 PO; +VANCOMYCIN HCL10 GM PO
[2017-06-18] MEDS ORDERED: LITE COAT ASPI325 MG PO (06:56)
[2017-06-18 07:04] LABS: HEMATOCRIT 40.8 % (37.0-47.0); HEMOGLOBIN 13.9 gm/dL (12.0-15.0); MCH 33.5 pg (26.0-34.0); MCV 98.5 fL (80.0-100.0); RBC 4.14 mil/uL (4.20-5.00)
[2017-06-18 08:06] LABS: URINE BLOOD 3+ (Negative); URINE GLUCOSE-RANDOM* NEGATIVE (Negative); URINE KETONES 1+ (Negative); URINE PROTEIN (DIPSTICK) 2+ (Negative); URINE SPECIFIC GRAVITY 1.015 (1.003-1.035); URINE UROBILINOGEN 0.2 E.U./dl (0.2-1.0)
[2017-06-18 08:07] LABS: URINE COLOR PINK; URINE LEUKOCYTES-REFLEX 2+ (Negative)
[2017-06-18 08:16] LABS: ANION GAP 10 mmol/L (7-16); BUN 23 mg/dL (7-18); CALCIUM 8.9 mg/dL (8.5-10.1); CHLORIDE 92 mmol/L (98-107); CO2 26 mmol/L (21-32); GLUCOSE 79 mg/dL (74-106); POTASSIUM 4.7 mmol/L (3.5-5.1); SODIUM 128 mmol/L (136-145)
[2017-06-18 08:24] LABS: ALBUMIN 3.2 g/dL (3.4-5.0); ALKALINE PHOSPHATASE 109 U/L (46-116); SGOT 23 U/L (15-37); SGPT 17 U/L (30-65); TOTAL BILIRUBIN 0.4 mg/dL (<0.1-1.0); TOTAL PROTEIN 7.2 g/dL (6.4-8.2); TROPONIN-I < 0.04 ng/mL (<0.06)
[2017-06-18 08:28] LABS: ICTOTEST (BILI CONFIRMATORY) Negative (Negative); URINE BILIRUBIN NEGATIVE (Negative)
[2017-06-18] MEDS ORDERED: PREDNISONE 20 M20 MG PO (08:31)
[2017-06-18] MEDS ORDERED: KEFLEX500 M1 PO (08:31)
[2017-06-18 08:33] LABS: CASTS None Seen /LPF (None Seen); SQUAMOUS None Seen /LPF (0-3)
== END 2017-06-18 09:59 | disposition home or self-care (01) ==
LOC: ER 06:46
PROVIDERS: Emergency Medicine
DX: J44.1 Chronic obstructive pulmonary disease with (acute) exacerbation (principal); N39.0 Urinary tract infection, site not specified; I10 Essential (primary) hypertension; F41.9 Anxiety disorder, unspecified; F32.9 Major depressive disorder, single episode, unspecified; I48.91 Unspecified atrial fibrillation; I47.1 Supraventricular tachycardia; Z87.891 Personal history of nicotine dependence; Z88.8 Allergy status to other drugs, medicaments and biological substances

== ENCOUNTER → 2017-07-11 | Outpatient (CLI) | payer BC, OTHER ==
[~2017-07-11] MED LIST changes: +ACETAMINOPHEN325 M1 PO; +AMLODIPINE BESY10 MG PO; +CEFDINIR300 MG PO; +CLOTRIMAZOLE10 MG PO; +DELZICOL400 M1 PO; +DOXYCYCLINE 10100 MG PO; +FLAGYL IV; +FLAGYL500 MG PO; +FLUCONAZOLE 10100 MG PO; +KEFLEX500 M1 PO; +LASIX 20 MG TAB20 MG PO; +LITE COAT ASPI325 MG PO; +NORVASC10 MG; +NYSTATIN100000 UNI SW&SWALLOW; +OMEPRAZOLE20 M2 PO; +PREDNISONE 10 M10 MG PO; +PREDNISONE 20 M20 M1 PO; +PROBIOTIC1 EAC1 PO; +PROTONIX40 M1; +PULMICORT0.5 MG/22 INH; +VANCOMYCIN PO; +ZOLOFT100 MG PO
== END ==
LOC: RAD 08:20
DX: A04.72 Enterocolitis due to Clostridium difficile, not specified as recurrent (principal); I10 Essential (primary) hypertension; J44.9 Chronic obstructive pulmonary disease, unspecified; I48.91 Unspecified atrial fibrillation; Z79.899 Other long term (current) drug therapy; Z98.890 Other specified postprocedural states; Z79.82 Long term (current) use of aspirin

== ENCOUNTER 2017-07-13 09:50 | Inpatient (IN) | payer OTHER, BC ==
[~2017-07-13] VITALS: Ht 162.6 cm; Wt 72.6 kg
--- NOTE | ~2017-07-13 | H ---
[facility] [place] [address] HISTORY AND PHYSICAL Name: DENZEL BENTLEY Martinez Room #: 435-P [facility] IN ..#: [id number] Admission: 07/13/17 Attend Phys: Contreras Shafer MD Discharge: Date of : 39 Report #: [id number] THIS REPORT FOR: //name// CC: Contreras Shafer DATE OF SERVICE: 07/13/2017 CHIEF COMPLAINT: Shortness of breath. HISTORY OF PRESENT ILLNESS: The patient is a 77-year-old female who presented to the Emergency Room from home with general weakness and shortness of breath. She was just hospitalized for pneumonia and COPD exacerbation and transferred to [facility]. There she finished off a course of antibiotics and steroids. Approximately 2 days ago, she was discharged from her skilled facility to return home, but had a preplanned outpatient procedure for a stool transplant due to recurrent C. diff colitis, which she underwent earlier in the week. It appears per her report when she returned home, the heat was out as her furnace was nonfunctioning and apparently her water service had been turned off as well. It is unclear how she managed for a day or two in this situation, but she was unable to manage at home and presented to the Emergency Room earlier today. Initially, she was little hypoxic on room air, but after breathing treatment she was satting in the mid 90s on room air. PAST MEDICAL HISTORY: COPD, hypertension, recurrent C. diff, as mentioned she just underwent a stool transplant. She had a history of respiratory failure on ventilator in 2015. Depression, anxiety, history of alcohol and tobacco use, but she quit over a year ago, paroxysmal AFib, history of sepsis. She had history of vertebral compression fracture with kyphoplasty. PAST SURGICAL HISTORY: Unknown. FAMILY HISTORY: Noncontributory. SOCIAL HISTORY: As mentioned prior 18-augd-iwzp history of smoking and previous alcohol history, but she has quit both she said over the last year. She had been living at [facility] for about the last year and a half, but apparently was in the process of moving back home due to financial constraints. ALLERGIES: No known drug allergies. MEDICATIONS: Omnicef, vancomycin, fluconazole, Coreg, amlodipine, lisinopril, aspirin, hydrochlorothiazide, Pulmicort, Mucinex, probiotic, DuoNeb, Advair. REVIEW OF SYSTEMS: She denies headache, chest pain, shortness of breath, abdominal pain, nausea, vomiting, diarrhea, constipation, dysuria, syncope. [facility] [address] [place] [address] HISTORY AND PHYSICAL Name: DENZEL BENTLEY Room #: [facility]#: [id number] Admission: 07/13/17 Attend Phys: Contreras Shafer MD Discharge: Date of : 39 Report #: [id number] OBJECTIVE: VITAL SIGNS: Temperature 36.7, pulse 83, respirations 18, blood pressure 102/65, O2 sat 91-95% on room air. GENERAL: She is awake and alert. She is oriented to place, knows me. HEAD AND NECK: Unremarkable. LUNGS: Distant but clear. No wheezing. HEART: Regular, no murmur. ABDOMEN: Soft, normoactive bowel sounds. EXTREMITIES: No edema. NEUROLOGIC: Motor strength 4/5 throughout. LABORATORY DATA: Creatinine is 1.4, BUN 48. CBC was normal. CT of the chest and chest x-ray suggested right-sided atelectasis. ASSESSMENT: 1. Acute exacerbation of chronic obstructive pulmonary disease. 2. Hypertension. 3. 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 4. Senile debility. PLAN: For now, she will be treated with steroids and albuterol treatments and incentive spirometer. As there are no overt signs of infection, I will hold off on antibiotics for now given recent C. diff problems. Clearly, there are some social aspects that play here and it is just not clear if she has enough support to be alone and is not clear whether there is any family support available in town. Unfortunately, it sounds like finances may play a role, which will make placement difficult. She tells me her daughters are due in town for the holidays, so we will see if that comes to pass and then take a day-to-day approach on her lungs when she can discharge, will need social work help as well. <ELECTRONICALLY SIGNED> By: Contreras Shafer MD 07/14/17 0817 1624 1643 Contreras Shafer MD /nt
--- NOTE | ~2017-07-13 | EKG ---
[address] [place] [address] ELECTROCARDIOGRAM REPORT Name: DENZEL BENTLEY Room #: 435-P ADM IN M.R.#: [id number] Admission: 07/13/17 Attend Phys: Contreras Shafer MD Discharge: Date of : 39 Report #: [id number] THIS REPORT FOR: //name// [facility] ED Test Date: 2017-07-13 Test Time: 09:59:25 Pat Name: DENZEL BENTLEY Department: Room: [facility] Gender: F [employer] Set Up Operator: KARYNA : 1940 Requested By: Dom Hahn Order Number: [id number] MD: Jacob Suazo Measurements Intervals [place] Rate: 94 P: 14 AK: 182 QRS: -14 QRSD: 76 T: 47 QT: 388 QTc: 486 Interpretive Statements Sinus rhythm LVH with secondary repolarization abnormality Inferior infarct, old Compared to ECG 06/18/2017 08:12:00 First degree AV block no longer present Electronically Signed On 07-13-2017 14:36:33 CURATOR OF PHOTOGRAPHY AND PRINTS by Jacob Suazo [email or web address] <ELECTRONICALLY SIGNED> By: Jacob Suazo MD, [facility] 07/13/17 1436 0959 0959 Jacob Suazo MD, [facility] /EPI
--- NOTE | ~2017-07-13 | D ---
[facility] [place] [address] [place] [address] DISCHARGE SUMMARY Name: MCDENZEL Martinez Room #: 435-P [facility] IN ..#: [id number] Admission: 07/13/17 Attend Phys: Conterras Shafer MD Discharge: 07/15/17 Date of : 38 Report #: [id number] THIS REPORT FOR: //name// CC: Contreras Shafer DATE OF SERVICE: 07/15/2017 FINAL DIAGNOSES: 1. Chronic obstructive pulmonary disease exacerbation. 2. Hypertension. 3. Senile debility. HOSPITAL COURSE: The patient was admitted with shortness of breath. She had some mild hypoxia in the Emergency Room, which responded to nebulized treatment. She remained with good saturations the rest of her stay on room air. She was treated for chronic obstructive pulmonary disease exacerbation with nebulized treatments and steroids. Antibiotics were withheld at this point as there was no overt sign of infection and pneumonia was ruled out based on CT, chest x-ray, symptoms and white blood cell count being normal. She had just finished a course of prolonged treatment for C. diff with a stool transplant; therefore, the risk of additional antibiotics without a strong indication was too high at this point. The other major issue was that of lack of social support, she had just been released from a retirement facility to home and apparently was not ready to be home alone, there were issues with safety of access to heat and running water. She also had no transportation and no medications in the home. Social Work saw her and it appears that her daughters are coming in to stay with her at least temporarily to get her settled. PHYSICAL EXAMINATION: VITAL SIGNS: On the day of discharge, she was awake and alert. VITAL SIGNS: Blood pressure 128/65, O2 sat 97% on room air, pulse 85. LUNGS: Clear. HEART: Regular. ABDOMEN: Soft, normoactive bowel sounds. EXTREMITIES: No edema. DISPOSITION: She will be discharged to home with diet and activity as tolerated. I have ordered home health. Follow up with me in 2 weeks. She will be on a steroid taper, Coreg, nebulized treatments, Mucinex, aspirin, Tylenol. <ELECTRONICALLY SIGNED> By: Contreras Shafer MD 07/19/17 1110 0814 0942 Contreras Shafer MD /nt
[~2017-07-13 09:50] MED LIST changes: -ACETAMINOPHEN325 M1 PO; -DELZICOL400 M1 PO; -DOXYCYCLINE 10100 MG PO; -FLAGYL IV; -FLAGYL500 MG PO; -LASIX 20 MG TAB20 MG PO; -NORVASC10 MG; -NYSTATIN100000 UNI SW&SWALLOW; -OMEPRAZOLE20 M2 PO; -PREDNISONE 10 M10 MG PO; -PROTONIX40 M1; -VANCOMYCIN PO; -ZOLOFT100 MG PO
[2017-07-13 09:51] VITALS: BP 114/70
[2017-07-13] MEDS ORDERED: DOXYCYCLINE 10100 MG PO (10:05)
[2017-07-13] MEDS ORDERED: LASIX 20 MG TAB20 MG PO (10:06)
[2017-07-13] MEDS ORDERED: DUONEB 2.5-0.5 M3 ML INH (10:06)
[2017-07-13] MEDS ORDERED: PREDNISONE 10 M10 MG PO (10:08)
[2017-07-13] MEDS ORDERED: OMEPRAZOLE20 M2 PO (10:08)
[2017-07-13 10:18] LABS: HEMATOCRIT 38.3 % (37.0-47.0); HEMOGLOBIN 13.3 gm/dL (12.0-15.0); MCH 34.5 pg (26.0-34.0); MCHC 34.6 g/dL (28.0-37.0); MCV 99.5 fL (80.0-100.0); RBC 3.85 mil/uL (4.20-5.00); RDW 14.7 % (10.5-14.5)
[2017-07-13 11:53] LABS: ANION GAP 8 mmol/L (7-16); BUN 48 mg/dL (7-18); CALCIUM 9.4 mg/dL (8.5-10.1); CHLORIDE 104 mmol/L (98-107); CO2 32 mmol/L (21-32); CREATININE 1.4 mg/dL (0.6-1.0); GLUCOSE 107 mg/dL (74-106); POTASSIUM 4.1 mmol/L (3.5-5.1); SODIUM 144 mmol/L (136-145)
[2017-07-13 12:02] LABS: TROPONIN-I < 0.04 ng/mL (<0.06)
[2017-07-13 13:26] VITALS: BP 99/65
[2017-07-13 13:50] VITALS: BP 100/65
[2017-07-13 14:10] VITALS: BP 102/65
[2017-07-13 16:40] VITALS: BP 116/59
[2017-07-13 19:13] VITALS: BP 111/68
[2017-07-14 03:57] VITALS: BP 114/49
[2017-07-14 07:00] VITALS: BP 137/81
[2017-07-14 07:08] VITALS: BP 137/81
[2017-07-14 07:49] LABS: URINE BILIRUBIN NEGATIVE (Negative); URINE BLOOD 3+ (Negative); URINE COLOR YELLOW; URINE GLUCOSE-RANDOM* NEGATIVE (Negative); URINE KETONES NEGATIVE (Negative); URINE PROTEIN (DIPSTICK) 1+ (Negative); URINE SPECIFIC GRAVITY <= 1.005 (1.005-1.035); URINE UROBILINOGEN 0.2 E.U./dl (0.2-1.0)
[2017-07-14 07:50] LABS: URINE LEUKOCYTES-REFLEX 1+ (Negative)
[2017-07-14 08:01] LABS: SQUAMOUS 0-3 Few /LPF (0-3)
[2017-07-14 08:02] LABS: CASTS None Seen /LPF (None Seen); URINE RBC 3-10 Few /HPF (0-2); URINE WBC-REFLEX 6-15 Few /HPF (0-5)
[2017-07-14 16:10] VITALS: BP 118/67
[2017-07-14 19:55] VITALS: BP 126/66
[2017-07-15 05:30] VITALS: BP 128/65
[2017-07-15 08:00] VITALS: BP 132/74
[2017-07-15] MEDS ORDERED: CARVEDILOL25 MG PO (08:06)
[2017-07-15] MEDS ORDERED: PROBIOTIC1 EAC1 PO (08:07)
[2017-07-15] MEDS ORDERED: PREDNISONE 10 M10 MG PO (08:08)
== END 2017-07-15 17:15 | disposition home health service (06) | DRG 190 ==
LOC: ER 09:50 → EROBS 13:04 → 4S 13:04
PROVIDERS: Emergency Medicine; Nurse Practitioner Family
DX: J44.0 Chronic obstructive pulmonary disease with (acute) lower respiratory infection (principal); J18.9 Pneumonia, unspecified organism; A04.71 Enterocolitis due to Clostridium difficile, recurrent; J44.1 Chronic obstructive pulmonary disease with (acute) exacerbation; I10 Essential (primary) hypertension; F32.9 Major depressive disorder, single episode, unspecified; F41.9 Anxiety disorder, unspecified; I48.0 Paroxysmal atrial fibrillation; Z87.81 Personal history of (healed) traumatic fracture; Z88.8 Allergy status to other drugs, medicaments and biological substances; Z79.899 Other long term (current) drug therapy; Z87.891 Personal history of nicotine dependence
CPT/HCPCS: 10195

== ENCOUNTER 2017-08-02 18:04 | Inpatient (IN) | payer OTHER, BC ==
[~2017-08-02] VITALS: Ht 162.6 cm; Wt 72.6 kg
--- NOTE | ~2017-08-02 | EKG ---
[address] [address] ELECTROCARDIOGRAM REPORT Name: JOSÉ MIGUEL BENTLEYCAIO Henriquez Room #: 420-P [facility] IN M.R.#: [id number] Admission: 08/02/17 Attend Phys: Contreras Shafer MD Discharge: Date of : 38 Report #: [id number] THIS REPORT FOR: //name// [facility] ED Test Date: 2017-08-02 Test Time: 18:27:53 Pat Name: DENZEL BENTLEY Department: Room: [facility] Gender: F Meatcutter: JAMEY : 1940 Requested By: Arnold Powell Order Number: [id number] MD: Andrew De La Cruz Measurements Intervals [place] Rate: 87 P: 72 MN: 179 QRS: -13 QRSD: 70 T: 83 QT: 355 QTc: 427 Interpretive Statements Sinus rhythm Compared to ECG 07/13/2017 09:59:25 Electronically Signed On 08-03-2017 8:09:55 [employer] by Andrew De La Cruz [email or web address] <ELECTRONICALLY SIGNED> By: Andrew De La Cruz MD 08/03/17 0809 [id number] MD ANA Ramírez
--- NOTE | ~2017-08-02 | HC ---
[facility] [place] [address] CONSULTATION Name: DENZEL BENTLEY Room #: 420-P [facility] IN .R.#: [id number] Admission: 08/02/17 Attend Phys: Contreras Shafer MD Discharge: Date of : 38 Report #: [id number] THIS REPORT FOR: //name// CC: Leonel Mata MD DATE OF SERVICE: 08/05/2017 HISTORY OF PRESENT ILLNESS: The patient is a 77-year-old female who was admitted through the emergency room for complaints of increasing back pain. She is also dyspneic and placed on oxygen on the way over in the ambulance. Reason for GI consultation is the patient has a history of recurrent C. diff, who has been followed by Dr. 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 She does report improvement in her symptoms; however, has continued loose stools as well as CT scan on 08/03/2017, of the abdomen and pelvis, which shows persistent diffuse moderate colonic wall thickening with greatest disease involving the mid and distal transverse colon, descending colon, and rectosigmoid colon. There is associated extensive colonic diverticulosis. Given the patient's clinical history is most likely related to C. diff, diverticulitis would be a possibility. Cholelithiasis was also noted. Dr. Goins would like to rule out the possibility of an ischemic colitis. The patient denies any blood in her stools. We therefore discussed proceeding with a flexible sigmoidoscopy tomorrow. At this point, denies any fevers or chills. No chest pain or shortness of breath. PAST MEDICAL HISTORY: Recurrent C. diff, status post stool transplant, hypertension, COPD, history of compression fracture of the spine, atrial fibrillation, history of SVT, and previous kyphoplasty. MEDICATIONS ON ADMISSION: Aspirin, Pulmicort, Mucinex, probiotic, prednisone, DuoNeb, and Tylenol. ALLERGIES: To NICKEL. REVIEW OF SYSTEMS: As per HPI. SOCIAL HISTORY: Long history of cigarette smoking. She does report regular alcohol use as well. FAMILY HISTORY: Negative for colon cancer. PHYSICAL EXAMINATION: VITAL SIGNS: Temperature is 36.7, pulse 55, blood pressure 137/69, and respiratory rate is 18. GENERAL: She is alert and oriented x3, in no acute distress. [address] [address] CONSULTATION Name: DENZEL BENTLEY Room #: [address] [place] [address] [place] .R.#: [id number] Admission: 08/02/17 Attend Phys: Contreras Shafer MD Discharge: Date of : 38 Report #: [id number] HEENT: Sclerae are nonicteric. Oropharynx is clear. NECK: Supple without lymphadenopathy. CARDIOVASCULAR: Regular rate and rhythm. CHEST: With slight decreased breath sounds bilaterally. ABDOMEN: Soft. She is minimally tender to palpation in the periumbilical region. Nondistended. Normoactive bowel sounds. EXTREMITIES: No cyanosis, clubbing, or edema. LABS: WBC is 11.8, hemoglobin 10.7, and platelet count 179. Sodium 137, potassium 3.9, chloride 106, bicarb 24, BUN 18, creatinine 1.2, glucose 114, calcium 7.2. Two days ago, AST 9, ALT 14, alk phos 74, total bilirubin 0.6. ASSESSMENT AND PLAN: History of recurrent Clostridium difficile, status post fecal transplant. CT scan on admission of the abdomen and pelvis shows a colonic thickening, this may be secondary to ischemic colitis or ongoing Clostridium difficile or resolving Clostridium difficile. Agree with proceeding with flexible sigmoidoscopy tomorrow for further evaluation. We will make further recommendations at that time. Thank you for allowing me to participate in her care. <ELECTRONICALLY SIGNED> By: Leonardo Pascal MD 08/07/17 1538 1155 1721 Leonardo Pascal MD /nt
--- NOTE | ~2017-08-02 | D ---
[facility] [place] [address] DISCHARGE SUMMARY Name: DENZEL BENTLEY Martinez Room #: 420-P [facility] IN [facility].#: [id number] Admission: 08/02/17 Attend Phys: Contreras Shafer MD Discharge: 08/09/17 Date of : 38 Report #: [id number] THIS REPORT FOR: //name// CC: Contreras Shafer FINAL DIAGNOSES: 1. Clostridium difficile colitis. 2. Hypertension. 3. Chronic obstructive pulmonary disease. 4. Urinary tract infection. PROCEDURES: 1. Flex sig. 2. CT abdomen. HOSPITAL COURSE: The patient was admitted from home with complaints of back pain, but she was noted with abdominal pain and leukocytosis. At the time of admission, the suspicion was for recurrent C. diff colitis. This was confirmed by CT showing inflammatory reaction of the left lower colon. Eventually, stool was positive for C. diff by PCR. Empiric vancomycin and Flagyl were started at the time of admission. There was also a urine culture grew Klebsiella consistent with a UTI. With medical treatment and antibiotics, her abdominal symptoms and leukocytosis improved and resolved. Stools are becoming formed with no watery diarrhea, but they were still loose. Dr. Leonel Goins followed her stay and antihypertensive regimen was adjusted accordingly. COPD was stable. PHYSICAL EXAMINATION: On the day of discharge: GENERAL: She was awake and alert, no distress. VITAL SIGNS: She was afebrile with blood pressures ranging 150/70-180/100. LUNGS: Clear. HEART: Regular. ABDOMEN: Soft, normoactive bowel sounds. EXTREMITIES: No edema. DISPOSITION: She will be discharged to home with diet and activity as tolerated, home health. Follow up with myself and Dr. Goins in 10 days. MEDICATIONS: Tylenol, DuoNeb, aspirin 81 mg, Pulmicort b.i.d., Coreg 25 mg b.i.d., Mucinex b.i.d., acidophilus daily, lisinopril 20 mg b.i.d., Norvasc 10 mg a day, Zoloft 150 mg a day and vancomycin 500 mg q.i.d. <ELECTRONICALLY SIGNED> By: Contreras Shafer MD 08/13/17 1250 1000 1033 Contreras Shafer MD /nt
--- NOTE | ~2017-08-02 | P ---
[facility] [place] [address] PROCEDURE REPORT Name: DENZEL BENTLEY Room #: 420-P [facility] IN M.R.#: [id number] Admission: 08/02/17 Attend Phys: Contreras Shafer MD Discharge: Date of : 38 Report #: [id number] THIS REPORT FOR: //name// CC: Leonel Mata MD DATE OF SERVICE: 08/06/2017 PROCEDURE PERFORMED: Flexible sigmoidoscopy with biopsies. HISTORY OF PRESENT ILLNESS: The patient is a 77-year-old female with a history of recurrent C. diff status post fecal transplant in June 2017, was admitted with back pain and dyspnea. CT scan of the abdomen and pelvis on admission shows thickening of the transverse, descending, and sigmoid colon, also diverticulosis. Because of the possibility of ischemic colitis and previous history of recurrent C. diff, plan is for flexible sigmoidoscopy for further evaluation. PROCEDURE: The risks and benefits of the procedure were explained to the patient, those risks including, but not limited to bleeding, perforation, and the risk of sedation. She understood these risks and gave informed consent. Sedation was given using propofol per anesthesia. Next, a digital rectal exam was initially performed, which was normal. Next, using a standard Spreecastinon colonoscope, the scope was placed in the patient's anus and advanced under direct vision to the mid transverse colon, there was a fair amount of stool within the transverse and descending colon, which did limit visualization. Multiple washings and aspirations were performed of the areas that were visualized. There was a mild colitis with mild erythema, but no ulcerations, no bleeding, multiple diverticula were noted in the sigmoid colon, again some mild inflammation in the sigmoid colon and rectum. No pseudomembranes were noted. Again, no ulcerations or bleeding were noted. Random biopsies were obtained today. On retroflexion, small nonbleeding internal hemorrhoids were noted. At this point, the scope was then withdrawn and the procedure terminated. The patient tolerated the procedure well. IMPRESSION: 1. Mild colitis throughout, no pseudomembranes, no ulcerations, doubt this represents ischemic colitis, but random biopsies were obtained. 2. Diverticulosis, no obvious diverticulitis noted. 3. Internal hemorrhoids. 4. Otherwise, normal flexible sigmoidoscopy. RECOMMENDATIONS: 1. Await biopsy results. 2. Continue current vancomycin. [address] [address] PROCEDURE REPORT Name: DENZEL BENTLEY Room #: 420-P [facility] IN M.R.#: [id number] Admission: 08/02/17 Attend Phys: Contreras Shafer MD Discharge: Date of : 38 Report #: [id number] Thank you for allowing me to participate in her care. <ELECTRONICALLY SIGNED> By: Leonardo Pascal MD 08/07/17 1538 1158 1756 Leonardo Pascal MD /nt
--- NOTE | ~2017-08-02 | HC ---
[facility] [place] [address] [place] [address] CONSULTATION Name: DENZEL BENTLEY Martinez Room #: 420-P [facility] IN M.R.#: [id number] Admission: 08/02/17 Attend Phys: Contreras Shafer MD Discharge: Date of : 38 Report #: [id number] THIS REPORT FOR: //name// CC: Contreras Shafer TYPE OF REPORT: Infectious disease consultation. REASON FOR CONSULTATION: I was asked to evaluate concerning possible relapse of C. difficile colitis. 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 Seemed to do well after this. Last 48 hours ago developed a fever, chills, headache and back pain, felt like she had the flu. No nausea or vomiting. Subsequently, has developed diarrhea. She has had some cough but unchanged from her chronic COPD and bronchitis. Now has more abdominal discomfort. Again, has shortness of breath and was taken to the Emergency Room for further evaluation. Chest x-ray shows no acute infiltrates. Influenza antigen was negative. CT scan of the abdomen showed more diffuse colitis changes with some diverticular disease and staghorn calculi, nonobstructing. White count is elevated at 23. Creatinine was normal. Given one dose of ceftriaxone in the Emergency Room, now on oral vancomycin and metronidazole. Still having small volume loose stools. No documented fever since admission. Hemodynamically, has been stable. PAST MEDICAL HISTORY: Unchanged from history and physical and that of my previous consultation. FAMILY HISTORY: Unchanged from history and physical and that of my previous consultation. SOCIAL HISTORY: Unchanged from history and physical and that of my previous consultation. ALLERGIES: No known allergies. MEDICATIONS: As noted on her MAR including the vancomycin and metronidazole. REVIEW OF SYSTEMS: As noted above. PHYSICAL EXAMINATION: VITAL SIGNS: Afebrile and hemodynamically stable. GENERAL: She was alert and cooperative. No acute distress. She was able to get up with some assistance and was toileting on the bedside commode. HEENT: Unremarkable. LUNGS: Clear. HEART: Regular, without murmur. ABDOMEN: Mild distention with some tenderness in the lower abdomen. No mass or [facility] [address] [place] [address] CONSULTATION Name: MCDENZEL Martinez Room #: 420-P [facility] IN .R.#: [id number] Admission: 08/02/17 Attend Phys: Contreras Shafer MD Discharge: Date of : 39 Report #: [id number] hepatosplenomegaly. No guarding or rebound. EXTREMITIES: Unremarkable. RADIOLOGICAL DATA: CT and chest x-ray as noted above. LABORATORY STUDIES: Sodium 137, potassium 4.3, bicarbonate of 26 and creatinine 1.3. Liver function test normal. Albumin at 2.4. Hemoglobin 12; WBC 23.8 and platelet count 177,000. C. diff pending. Urinalysis had moderate wbc's and many bacteria. IMPRESSION AND RECOMMENDATIONS: A 77-year old with fever or leukocytosis, recurrent diarrhea and I am concerned about relapse of her Clostridium difficile colitis. She did undergo fecal transplant with which has high rate of success. She also has staghorn calculi and active urine. Still may be component of urinary tract infection. We would recommend continuing antibiotic therapy for urinary tract as well as Clostridium difficile colitis. I would like to arrange colonoscopy to ensure there are no other issues involving her colon prior to repeat transplant. <ELECTRONICALLY SIGNED> By: Leonel Goins MD 08/04/17 1404 1532 2105 Leonel Goins MD /nt
--- NOTE | ~2017-08-02 | S ---
[facility] [place] [address] SURGICAL PATH RPT PROCEDURE Name: DENZEL BENTLEY Room #: 420-P [facility] IN M.R.#: [id number] Admission: 08/02/17 Date of : 38 Discharge: Report #: [id number] Path Case #: [id number] PATHOLOGY REPORT COLLECTION DATE: 08/06/2017 RECEIVED DATE: 08/07/2017 SUBMITTING PHYS: Dr. Leonardo Pascal OTHER PHYS: Dr. Contreras Shafer SPECIMEN(S) RECEIVED: A.Random colon biopsies * * * * * * * * * * * * FINAL DIAGNOSIS: Margin, distal mucosa, random colon, endoscopic biopsy: - Mild active colitis (please see comment). - Negative for dysplasia or malignancy. COMMENT: Examination of the large intestine mucosa designated "random colon" shows scattered rare foci of active cryptitis. The lamina propria cellularity appears mildly increased. There are no areas of explosive ulceration identified to suggest pseudomembranous colitis. Regenerative changes are not identified within the crypts. There is no lamina propria fibrosis or fibrin thrombi present. There are no crypt architectural abnormalities present. There are no granulomata, viral inclusions, or parasitic organisms present. Overall findings are suggestive of focal active colitis and the differential diagnosis includes early infectious-type of colitis. Please correlate clinically and with microbiological studies if indicated. (IUV:pit; 08/08/2017) PATHOLOGIST: Vivian Pak M.D. REPORT ELECTRONICALLY SIGNED BY: Vivian Pak M.D. DATE/TIME: 08/08/2017 15:37 * * * * * * * * * * * * GROSS PATHOLOGY: Received in formalin labeled "Denzel Bentley, random colon biopsies," are 4 segments of escobedo soft tissue measuring 1.3 x 0.8 x 0.2 cm in aggregate dimensions and ranging from 0.3 to 0.4 cm in maximum dimension. The specimen is submitted entirely in cassette A1. (TSD; 08/07/2017) CLINICAL HISTORY: [address] [address] SURGICAL PATH RPT PROCEDURE Name: DENZEL BENTLEY Martinez Room #: 420-P [facility] IN M.R.#: [id number] Admission: 08/02/17 Date of : 38 Discharge: Report #: [id number] Path Case #: [id number] Pre-OP DX: C-Diff, recurrent, colitis Post-OP DX: Colitis, C-Diff recurrent INITIAL CPT CODE(S): A; 34886 Professional services performed by [facility] [address], [place] [address] Technical services performed by [facility] at [address] [place] [address], [facility] [address] [address]. [facility] [address] [place] [address] PHONE: [phone] DIRECTOR: Lincoln Flowers M.D. * * * END OF REPORT * * *
--- NOTE | ~2017-08-02 | H ---
[facility] [place] [address] HISTORY AND PHYSICAL Name: DENZEL BENTLEY Room #: 420-P [facility] IN .R.#: [id number] Admission: 08/02/17 Attend Phys: Contreras Shafer MD Discharge: Date of : 38 Report #: [id number] THIS REPORT FOR: //name// CC: Contreras Shafer CHIEF COMPLAINT: Abdominal pain. HISTORY OF PRESENT ILLNESS: The patient is a 77-year-old female who came back to the Emergency Room with a back and abdominal pain. She said yesterday evening, she developed a headache with a sense of fever and back pain, especially across the lower area. She had some nausea and abdominal discomfort. En route, she complained of shortness of breath and was placed on oxygen. She denied any productive cough, shortness of breath or diarrhea at home. She reported to ER feeling like "she was getting the flu." She has had several hospitalizations recently for recurrent C. diff colitis. She eventually underwent an outpatient stool transplant. Most recently, she has been hospitalized twice for pneumonia and COPD exacerbation. There have been a lot of social issues with her at home as well as she moved out of her assisted living facility back to her home before the holidays. Unfortunately, she had not been there in a few years and there was no functioning heat and there were issues with other utilities, and she came right back to the hospital as a result. Most recently after discharge, she has been staying with her daughters. PAST MEDICAL HISTORY: Hypertension, COPD, history of pneumonia, history of recurrent C. diff colitis, history of alcohol use, but none in 2 years, history of tobacco use, vertebral compression fractures, chronic low back pain, lumbar radiculopathy, hypertension, paroxysmal AFib. PAST SURGICAL HISTORY: As above. FAMILY HISTORY: Noncontributory. SOCIAL HISTORY: Remote tobacco and alcohol history, but none for 2 years. She had an episode of alcohol withdrawal in the hospital a few years ago. ALLERGIES: No known drug allergies. MEDICATIONS: Aspirin, Pulmicort, Mucinex, Coreg, acidophilus, prednisone, DuoNeb and she was to be on Zoloft. REVIEW OF SYSTEMS: She denies headache, chest pain, productive cough, diarrhea, myalgias, arthralgias, syncope or fall. PHYSICAL EXAMINATION: VITAL SIGNS: T-max was 37.7, currently 36.3; pulse 96; respirations 20; blood pressure 138/59; O2 sat 95% on room air. GENERAL: She is awake and alert, resting in bed in no distress. [address] [address] HISTORY AND PHYSICAL Name: DENZEL BENTLEY Room #: 420-P [facility] IN ..#: [id number] Admission: 08/02/17 Attend Phys: Contreras Shafer MD Discharge: Date of : 38 Report #: [id number] HEAD AND NECK: Unremarkable. LUNGS: Clear with no wheezing. HEART: Regular, no murmur. ABDOMEN: Soft, normoactive bowel sounds, slightly distended. She is tender diffusely throughout, but no rebound or guarding. EXTREMITIES: No cyanosis, clubbing or edema. NEUROLOGIC: She recognized me. She knows she is in the hospital. She gave me history of her admission. LABORATORY DATA: Pertinent lab findings include white count of 23, creatinine 1.3. Liver enzymes normal. Urinalysis had bacteria, white cells, nitrite and blood. Chest x-ray was clear. Influenza was negative. ASSESSMENT: 1. Abdominal pain. 2. Acute cystitis. 3. Leukocytosis, unclear etiology. 4. Chronic obstructive pulmonary disease. 5. Hypertension. PLAN: Given her history of C. diff, concern would be recurrent process at this time given abdominal distention, fever and leukocytosis. I have asked for a CT of the abdomen. I will ask Dr. Leonel Goins to see her in consultation as well. <ELECTRONICALLY SIGNED> By: Contreras Shafer MD 08/03/17 1113 0949 1025 Contreras Shafer MD /nt
[~2017-08-02 18:04] MED LIST changes: +DOXYCYCLINE 10100 MG PO; +LASIX 20 MG TAB20 MG PO; +OMEPRAZOLE20 M2 PO; +PREDNISONE 10 M10 MG PO
[2017-08-02 18:10] VITALS: BP 94/70
[2017-08-02 18:50] LABS: HEMATOCRIT 38.2 % (37.0-47.0); HEMOGLOBIN 12.6 gm/dL (12.0-15.0); MCH 33.5 pg (26.0-34.0); MCV 101.6 fL (80.0-100.0); PLATELET COUNT 206 thou/uL (150-400); RBC 3.76 mil/uL (4.20-5.00); RDW 15.4 % (10.5-14.5); WBC 23.2 thou/uL (4.0-11.0)
[2017-08-02 19:00] LABS: CALCIUM 8.7 mg/dL (8.5-10.1); CREATININE 1.2 mg/dL (0.6-1.0); POTASSIUM 4.4 mmol/L (3.5-5.1)
[2017-08-02 19:06] LABS: ALBUMIN 2.7 g/dL (3.4-5.0); DIRECT BILIRUBIN 0.1 mg/dL (<0.1-0.3); TOTAL BILIRUBIN 0.4 mg/dL (<0.1-1.0); TOTAL PROTEIN 5.9 g/dL (6.4-8.2)
[2017-08-02 19:11] LABS: ABSOLUTE NEUTROPHILS 21.1 thou/uL (1.4-8.2)
[2017-08-02 19:53] LABS: URINE BILIRUBIN NEGATIVE (Negative); URINE BLOOD 1+ (Negative); URINE COLOR YELLOW; URINE GLUCOSE-RANDOM* NEGATIVE (Negative); URINE KETONES NEGATIVE (Negative); URINE LEUKOCYTES 1+ (Negative); URINE NITRITE POSITIVE (Negative); URINE PROTEIN (DIPSTICK) NEGATIVE (Negative); URINE SPECIFIC GRAVITY 1.015 (1.005-1.035); URINE UROBILINOGEN 0.2 E.U./dl (0.2-1.0)
[2017-08-02 20:03] LABS: URINE CLARITY SL HAZY
[2017-08-02 20:04] LABS: SQUAMOUS 0-3 Few /LPF (0-3)
[2017-08-02 20:05] LABS: BACTERIA >30 Many /HPF (None Seen); CASTS None Seen /LPF (None Seen); CRYSTALS None Seen /LPF (None Seen); URINE RBC 3-10 Few /HPF (0-2)
[2017-08-02 23:05] VITALS: BP 94/60
[2017-08-02 23:09] VITALS: BP 92/70
[2017-08-03 00:15] VITALS: BP 117/68
[2017-08-03 05:23] VITALS: BP 118/49
[2017-08-03 07:56] LABS: HEMATOCRIT 35.8 % (37.0-47.0); MCHC 33.4 g/dL (28.0-37.0); MCV 101.5 fL (80.0-100.0); RBC 3.52 mil/uL (4.20-5.00); RDW 15.1 % (10.5-14.5); WBC 23.8 thou/uL (4.0-11.0)
[2017-08-03 08:15] VITALS: BP 138/59
[2017-08-03 08:30] LABS: ALBUMIN 2.4 g/dL (3.4-5.0); CALCIUM 8.2 mg/dL (8.5-10.1); CREATININE 1.3 mg/dL (0.6-1.0); POTASSIUM 4.3 mmol/L (3.5-5.1); TOTAL BILIRUBIN 0.6 mg/dL (<0.1-1.0); TOTAL PROTEIN 5.3 g/dL (6.4-8.2)
[2017-08-03 21:35] VITALS: BP 94/52
[2017-08-04 02:50] VITALS: BP 112/77
[2017-08-04 05:59] LABS: HEMATOCRIT 33.3 % (37.0-47.0); MCH 33.9 pg (26.0-34.0); MCHC 33.1 g/dL (28.0-37.0); MCV 102.3 fL (80.0-100.0); RBC 3.26 mil/uL (4.20-5.00); RDW 15.1 % (10.5-14.5); WBC 16.9 thou/uL (4.0-11.0)
[2017-08-04 06:08] LABS: CALCIUM 7.5 mg/dL (8.5-10.1); CREATININE 1.2 mg/dL (0.6-1.0)
[2017-08-04 06:09] LABS: POTASSIUM 3.3 mmol/L (3.5-5.1)
[2017-08-04 09:00] VITALS: BP 132/81
[2017-08-04 15:45] VITALS: BP 105/61
[2017-08-04 20:30] VITALS: BP 96/53
[2017-08-05 04:30] VITALS: BP 135/58
[2017-08-05 06:25] LABS: HEMATOCRIT 32.1 % (37.0-47.0); HEMOGLOBIN 10.7 gm/dL (12.0-15.0); MCH 34.2 pg (26.0-34.0); MCHC 33.4 g/dL (28.0-37.0); MCV 102.4 fL (80.0-100.0); RBC 3.13 mil/uL (4.20-5.00); RDW 15.6 % (10.5-14.5); WBC 11.8 thou/uL (4.0-11.0)
[2017-08-05 06:30] LABS: CALCIUM 7.2 mg/dL (8.5-10.1); CREATININE 1.2 mg/dL (0.6-1.0); POTASSIUM 3.9 mmol/L (3.5-5.1)
[2017-08-05 08:00] VITALS: BP 156/77
[2017-08-05 16:00] VITALS: BP 137/69
[2017-08-05 19:29] VITALS: BP 119/65
[2017-08-06 04:03] VITALS: BP 159/78
[2017-08-06 15:15] VITALS: BP 102/92
[2017-08-06 19:19] VITALS: BP 94/52
[2017-08-07 03:58] VITALS: BP 190/97
[2017-08-07 07:30] VITALS: BP 184/108
[2017-08-07 07:48] LABS: HEMOGLOBIN 12.1 gm/dL (12.0-15.0); MCH 35.1 pg (26.0-34.0); MCHC 34.6 g/dL (28.0-37.0); MCV 101.5 fL (80.0-100.0); RBC 3.45 mil/uL (4.20-5.00); RDW 15.5 % (10.5-14.5); WBC 5.6 thou/uL (4.0-11.0)
[2017-08-07 07:56] LABS: CALCIUM 7.9 mg/dL (8.5-10.1); CREATININE 0.9 mg/dL (0.6-1.0); POTASSIUM 3.9 mmol/L (3.5-5.1)
[2017-08-07 16:00] VITALS: BP 185/101
[2017-08-07 19:20] VITALS: BP 144/86
[2017-08-08 04:06] VITALS: BP 165/81
[2017-08-08 07:15] VITALS: BP 170/88
[2017-08-08 15:10] VITALS: BP 135/100
[2017-08-08 21:00] VITALS: BP 159/84
[2017-08-09 04:30] VITALS: BP 179/83
[2017-08-09 04:52] LABS: HEMATOCRIT 33.6 % (37.0-47.0); HEMOGLOBIN 11.2 gm/dL (12.0-15.0); MCH 34.1 pg (26.0-34.0); MCHC 33.4 g/dL (28.0-37.0); MCV 102.2 fL (80.0-100.0); RBC 3.29 mil/uL (4.20-5.00); RDW 15.6 % (10.5-14.5); WBC 7.4 thou/uL (4.0-11.0)
[2017-08-09 05:01] LABS: CREATININE 0.8 mg/dL (0.6-1.0); POTASSIUM 3.7 mmol/L (3.5-5.1)
[2017-08-09 08:52] VITALS: BP 167/109
[2017-08-09] MEDS ORDERED: VANCOMYCIN HCL10 GM PO (09:51)
[2017-08-09] MEDS ORDERED: LISINOPRIL20 MG PO (09:52)
[2017-08-09] MEDS ORDERED: NORVASC10 MG PO (09:52)
[2017-08-09] MEDS ORDERED: CARVEDILOL25 MG PO (09:52)
[2017-08-09] MEDS ORDERED: ZOLOFT100 MG PO (09:53)
[2017-08-09 10:05] VITALS: BP 167/109
[2017-11-21] MEDS ORDERED: VANCOMYCIN HCL10 GM PO (13:00)
[2017-11-21] MEDS ORDERED: PACERONE 200 M200 M1 PO (13:00)
[2017-11-21] MEDS ORDERED: FLAGYL500 MG PO (13:00)
[2017-11-21] MEDS ORDERED: ENOXAPARIN40 MG/0.1 SUBQ (13:00)
[2017-11-21] MEDS ORDERED: NYSTATIN100000 UNI SW&SWALLOW (13:00)
== END 2017-08-09 12:29 | disposition home health service (06) | DRG 871 ==
LOC: ER 18:04 → EROBS 20:21 → 4E 20:21
PROVIDERS: Internal Medicine Geriatric Medicine; Nurse Practitioner
PROC: 0DBN8ZX Excision of Sigmoid Colon, Via Natural or Artificial Opening Endoscopic, Diagnostic (ICD-10-PCS; principal; 2017-08-06)
DX: A41.9 Sepsis, unspecified organism (principal); E43 Unspecified severe protein-calorie malnutrition; A04.71 Enterocolitis due to Clostridium difficile, recurrent; N30.00 Acute cystitis without hematuria; A04.72 Enterocolitis due to Clostridium difficile, not specified as recurrent; K57.90 Diverticulosis of intestine, part unspecified, without perforation or abscess without bleeding; K64.8 Other hemorrhoids; I10 Essential (primary) hypertension; J44.9 Chronic obstructive pulmonary disease, unspecified; G89.29 Other chronic pain; M54.9 Dorsalgia, unspecified; I48.0 Paroxysmal atrial fibrillation; M54.16 Radiculopathy, lumbar region; D72.829 Elevated white blood cell count, unspecified; B96.4 Proteus (mirabilis) (morganii) as the cause of diseases classified elsewhere; Z88.8 Allergy status to other drugs, medicaments and biological substances
CPT/HCPCS: 10084; 62110; 62900

== ENCOUNTER 2017-09-23 12:18 | Inpatient (IN) | payer OTHER, BC ==
[~2017-09-23] VITALS: Ht 162.6 cm; Wt 72.6 kg
--- NOTE | ~2017-09-23 | D ---
[facility] [place] [address] DISCHARGE SUMMARY Name: DENZEL BENTLEY Martinez Room #: 431-P [facility] IN M.R.#: [id number] Admission: 09/23/17 Attend Phys: Contreras Shafer MD Discharge: 09/28/17 Date of : 38 Report #: [id number] THIS REPORT FOR: //name// CC: Contreras Shafer DATE OF SERVICE: 09/28/2017 FINAL DIAGNOSES: 1. Sepsis syndrome. 2. Recurrent Clostridium difficile colitis. 3. Chronic obstructive pulmonary disease. 4. Hypertension. HOSPITAL COURSE: The patient was admitted from home with abdominal pain, fever, diarrhea, and elevated white count. CT revealed colitis. This is consistent with recurrent C. diff. She was treated with IV Flagyl and oral vancomycin. Dr. Leonel Goins followed her course. The plan was for a stool transplant, but this cannot be arranged with lack of help from her family. She had no other interval complication. With usual treatment, her symptoms improved significantly. PHYSICAL EXAMINATION: GENERAL: On the day of discharge, she was awake and alert. VITAL SIGNS: Stable. LUNGS: Clear. HEART: Regular. ABDOMEN: Soft, normoactive bowel sounds. EXTREMITIES: No edema. Her white count did normalize. DISPOSITION: She is being transferred to [facility] facility for ongoing IV antibiotics due to recurrent C. diff. She has had multiple admissions in the last 6-9 months for the similar problem. I signed her transfer, medications and orders and our service will follow her stay there. <ELECTRONICALLY SIGNED> By: Conterras Shafer MD 09/28/17 1540 1029 1152 Contreras Shafer MD /nt
--- NOTE | ~2017-09-23 | EKG ---
[place] [address] [facility] [place] [address] ELECTROCARDIOGRAM REPORT Name: DENZEL BENTLEY Room #: 431-P ADM IN M.R.#: [id number] Admission: 09/23/17 Attend Phys: Contreras Shafer MD Discharge: Date of : 38 Report #: [id number] THIS REPORT FOR: //name// [facility] ED Test Date: 2017-09-23 Test Time: 12:48:06 Pat Name: DENZEL BENTLEY Department: Room: [facility] Gender: F Nutrition Aide: Jimmy SCHULER : 1940 Requested By: Dom Hahn Order Number: [id number] MD: Jacob Suazo Measurements Intervals [place] Rate: 103 P: -7 ME: 216 QRS: -18 QRSD: 70 T: 34 QT: 347 QTc: 454 Interpretive Statements Sinus tachycardia Prolonged ME interval Poor R wave progression Inferior infarct, old Compared to ECG 08/02/2017 18:27:53 First degree AV block now present Electronically Signed On 09-24-2017 8:38:58 GASKET NOTCHER by Jacob Suazo [email or web address] <ELECTRONICALLY SIGNED> By: Jacob Suazo MD, [facility] 09/24/17 0838 1248 1248 Jacob Suazo MD, [facility] /EPI
--- NOTE | ~2017-09-23 | D ---
[facility] [place] [address] DISCHARGE SUMMARY Name: DENZEL BENTLEY Martinez Room #: 431-P [facility] IN M.R.#: [id number] Admission: 09/23/17 Attend Phys: Contreras Shafer MD Discharge: 09/28/17 Date of : 38 Report #: [id number] THIS REPORT FOR: //name// CC: Contreras Shafer DATE OF SERVICE: 09/28/2017 FINAL DIAGNOSES: 1. Recurrent Clostridium difficile colitis. 2. Chronic obstructive pulmonary disease. 3. Hypertension. HOSPITAL COURSE: The patient was admitted again with abdominal pain and diarrhea with elevated white blood count, all symptoms consistent with recurrent C. diff and stool sample was positive. She has had multiple admissions for the same problem in the past. She had run out of her oral vancomycin at home and had no way for transportation to obtain the medicine from the pharmacy. Dr. Goins saw her in consultation and she was treated with IV Flagyl and oral vancomycin. Attempts were made for stool transplant, but a family member cannot provide a sample. She was medically stabilized otherwise, and COPD and blood pressure were stable. Because of her recurrent symptoms and multiple admissions to the hospital, I felt at this point, she needed LTAC management for daily physician supervision to stabilize her symptoms and come up with a long-term plan to control her infection and to prevent recurrent admission. DISPOSITION: She will be transferred to [facility]. She will be under the care of Dr. Bi Goins with consultation from Infectious Disease. I have signed all her transfer orders and medications. <ELECTRONICALLY SIGNED> By: Contreras Shafer MD 10/12/17 0921 1613 1746 Contreras Shafer MD /nt
--- NOTE | ~2017-09-23 | HC ---
[facility] [place] [address] CONSULTATION Name: DENZEL BENTLEY Room #: 431-P [facility] IN M.R.#: [id number] Admission: 09/23/17 Attend Phys: Contreras Shafer MD Discharge: Date of : 39 Report #: [id number] THIS REPORT FOR: //name// CC: Contreras Shafer REASON FOR CONSULTATION: I was asked to evaluate concerning recurrent C. difficile colitis. HISTORY OF PRESENT ILLNESS: The patient has had issues with recurring C. difficile colitis. Her last hospital stay was in second week of July. She was treated for C. difficile colitis. Flex sig showed active colitis consistent with mild active colitis. No evidence of Crohn disease or malignancy. She was treated with vancomycin upon discharge. I saw her in followup and she was doing much better approximately 2 weeks ago. Called last week stating that she was unable to refill her vancomycin. Therefore, we began arrangements for fecal transplant. In the meantime, she has developed acute worsening with left-sided abdominal pain, diarrhea, generalized weakness. She called 911 and came in to the Emergency Room here as leukocytosis and dehydration, placed on fluids and back on vancomycin. Some better today, but still has abdominal discomfort. PAST MEDICAL HISTORY: C. difficile colitis with pseudomembranous colitis, COPD, paroxysmal atrial fibrillation, urinary tract infection, thoracic vertebral compression fracture status post vertebroplasty. ALLERGIES: None. MEDICATIONS: As noted on her MAR, which were reviewed, now on oral vancomycin. FAMILY HISTORY: Noncontributory. SOCIAL HISTORY: Past tobacco and alcohol use. Now residing at home. I was attempting to convince her to move to an assisted living, hopefully have more control over her medical care. This has not happened. REVIEW OF SYSTEMS: Denies any cough, sputum, nausea, vomiting. No dysuria. PHYSICAL EXAMINATION: VITAL SIGNS: Afebrile, pulse in the 80s, blood pressure 115/56, 3 liters of oxygen per nasal cannula. SKIN: Unremarkable. LYMPHATIC: Unremarkable. Moderate obesity. HEENT: Unremarkable. Mouth: Unremarkable. NECK: Supple. CHEST: Clear. HEART: Regular without murmur. ABDOMEN: Soft, tender mostly in the left lower quadrant without guarding or rebound. [facility] [address] [address] CONSULTATION Name: DENZEL BENTLEY Room #: 431-P [facility] IN [facility].#: [id number] Admission: 09/23/17 Attend Phys: Contreras Shafer MD Discharge: Date of : 39 Report #: [id number] EXTREMITIES: Unremarkable. LABORATORY STUDIES: Blood cultures are negative today. Sodium 138, potassium 3.6, bicarbonate 23, creatinine 1.3. Liver function tests normal. Albumin at 2.3. Hemoglobin 13, white count 19.8, platelet count 218,000. Urinalysis: Many wbc's, rbc's, bacteria. Urine culture pending. Chest x-ray clear. CT abdomen and pelvis: Descending colon, sigmoid colon and rectal wall thickening. IMPRESSION: Recurrent Clostridium difficile colitis, necessitating hospital stay. The patient has failed multiple courses of antibiotic therapy. She has also failed 1 fecal transplant. We will attempt another fecal transplant when she is stabilized. We will plan to do this, making arrangements now for processing and proceed. <ELECTRONICALLY SIGNED> By: Leonel Goins MD 09/25/17 0809 1312 0234 Leonel Goins MD /nt
--- NOTE | ~2017-09-23 | H ---
[facility] [place] [address] HISTORY AND PHYSICAL Name: DENZEL BENTLEY Room #: 431-P ADM IN M.R.#: [id number] Admission: 09/23/17 Attend Phys: Contreras Shafer MD Discharge: Date of : 39 Report #: [id number] THIS REPORT FOR: //name// CC: Contreras Shafer DATE OF SERVICE: 09/23/2017 CHIEF COMPLAINT: Diarrhea. HISTORY OF PRESENT ILLNESS: The patient is a 77-year-old female who came back to the Emergency Room with complaints of diarrhea for a couple of days. She is a poor historian, but it sounds like, she ran out of her vancomycin about a week ago and was unable to afford the refill nor had transportation to come to an appointment or get out to the pharmacy. She has had multiple episodes of recurrent C. diff in the last several months. She was hospitalized several times, I believe in 2013 or 2014 and eventually stabilized. She had several episodes in the fall of 2016, ultimately undergoing a stool transplant after a sample was obtained from her grandson. She was just hospitalized again about a month ago with a similar problem and diagnosed with C. diff at that time. She was to remain on vancomycin indefinitely, but has not come back to the office for followup and sounds like she ran out of medication about a week ago. PAST MEDICAL HISTORY: Recurrent C. diff, history of sepsis, history of respiratory failure in 2014, history of alcohol abuse several years ago, she is a continual smoker, lumbar radiculopathy, paroxysmal AFib, hypertension, COPD, history of vertebroplasty. 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 She had a flex sig last month. FAMILY HISTORY: Noncontributory. SOCIAL HISTORY: Continued tobacco use. Remote alcohol history. She quit a couple of years ago. She has 2 daughters that live out of town and grandson in town. She has not been driving. ALLERGIES: No known drug allergies. MEDICATIONS: Aspirin, Pulmicort, Mucinex, Norvasc, lisinopril, Coreg, Zoloft, lactobacillus. REVIEW OF SYSTEMS: She complains of abdominal pain, otherwise no headache, chest pain, shortness of breath, myalgias, arthralgias, syncope or fall. PHYSICAL EXAMINATION: VITAL SIGNS: Per the nursing note. [address] [address] HISTORY AND PHYSICAL Name: DENZEL BENTLEY Room #: [facility] IN M.R.#: [id number] Admission: 09/23/17 Attend Phys: Contreras Shafer MD Discharge: Date of : 39 Report #: [id number] GENERAL: She is awake and alert, recognizes me and knows her surroundings. HEAD AND NECK: Unremarkable. Mucous membranes look dry. LUNGS: There is some faint expiratory wheezing. HEART: Regular. ABDOMEN: Soft, normoactive bowel sounds, distended, tender throughout. EXTREMITIES: No cyanosis, clubbing or edema. NEUROLOGIC: Motor strength 4/[address] DATA AND CT: Reviewed. ASSESSMENT: 1. Recurrent Clostridium difficile colitis. 2. Sepsis syndrome due to the above. 3. Chronic obstructive pulmonary disease exacerbation. 4. Acute cystitis. 5. Hypertension. PLAN: She will be admitted for antibiotics including Flagyl and vancomycin. I will ask the Infectious Disease Service to follow her. Pulmonary treatments have been ordered. She will need placement when stabilized to ensure continued medication compliance and medical supervision as this has been a recurrent problem. <ELECTRONICALLY SIGNED> By: Contreras Shafer MD 09/24/17 1322 1612 1645 Contreras Shafer MD /nt
[2017-09-23 12:18] VITALS: BP 122/77
[~2017-09-23 12:18] MED LIST changes: +ZOLOFT100 MG PO
[2017-09-23 13:26] LABS: BE(vivo) -3.5 mmol/L (-2 to +3); HCO3 20.3 mmol/L (22.0-26.0); PCO2 33.5 mmHg (35.0-45.0); PO2 57.6 mmHg (80.0-100.0); pH 7.401 (7.360-7.450); sO2 90.3 % (92.0-98.0)
[2017-09-23 13:38] LABS: HEMOGLOBIN 14.4 gm/dL (12.0-15.0); MCH 33.2 pg (26.0-34.0); MCHC 33.5 g/dL (28.0-37.0); MCV 99.1 fL (80.0-100.0); RBC 4.33 mil/uL (4.20-5.00); RDW 15.2 % (10.5-14.5); WBC 22.4 thou/uL (4.0-11.0)
[2017-09-23 13:45] LABS: ANION GAP 10 mmol/L (7-16); BUN 25 mg/dL (7-18); CALCIUM 8.8 mg/dL (8.5-10.1); CHLORIDE 103 mmol/L (98-107); CO2 24 mmol/L (21-32); CREATININE 1.2 mg/dL (0.6-1.0); GLUCOSE 123 mg/dL (74-106); SODIUM 137 mmol/L (136-145)
[2017-09-23 13:54] LABS: TROPONIN-I < 0.04 ng/mL (<0.06)
[2017-09-23 14:03] LABS: URINE BILIRUBIN NEGATIVE (Negative); URINE BLOOD 3+ (Negative); URINE COLOR YELLOW; URINE GLUCOSE-RANDOM* NEGATIVE (Negative); URINE KETONES NEGATIVE (Negative); URINE PROTEIN (DIPSTICK) 2+ (Negative); URINE SPECIFIC GRAVITY 1.015 (1.005-1.035); URINE UROBILINOGEN 0.2 E.U./dl (0.2-1.0)
[2017-09-23 14:04] LABS: URINE CLARITY HAZY; URINE LEUKOCYTES-REFLEX 2+ (Negative); URINE NITRITE-REFLEX POSITIVE (Negative)
[2017-09-23 14:13] LABS: BACTERIA-REFLEX >30 Many /HPF (None Seen); SQUAMOUS 0-3 Few /LPF (0-3); URINE RBC >20 Many /HPF (0-2); URINE WBC-REFLEX >25 Many /HPF (0-5)
[2017-09-23 14:14] LABS: CASTS None Seen /LPF (None Seen); CRYSTALS None Seen /LPF (None Seen)
[2017-09-23 16:45] VITALS: BP 123/74
[2017-09-23 19:16] VITALS: BP 127/81
[2017-09-23 19:30] VITALS: BP 121/67
[2017-09-24 04:30] VITALS: BP 106/56
[2017-09-24 06:07] LABS: HEMATOCRIT 39.8 % (37.0-47.0); HEMOGLOBIN 13.1 gm/dL (12.0-15.0); MCH 33.2 pg (26.0-34.0); MCV 100.5 fL (80.0-100.0); RBC 3.96 mil/uL (4.20-5.00); RDW 14.6 % (10.5-14.5); WBC 19.8 thou/uL (4.0-11.0)
[2017-09-24 06:31] LABS: ALBUMIN 2.3 g/dL (3.4-5.0); CALCIUM 8.1 mg/dL (8.5-10.1); CREATININE 1.3 mg/dL (0.6-1.0); POTASSIUM 3.6 mmol/L (3.5-5.1); TOTAL BILIRUBIN 0.2 mg/dL (<0.1-1.0); TOTAL PROTEIN 5.7 g/dL (6.4-8.2)
[2017-09-24 07:33] VITALS: BP 115/56
[2017-09-24 15:00] VITALS: BP 115/70
[2017-09-24 19:30] VITALS: BP 101/61
[2017-09-25 03:15] VITALS: BP 112/58
[2017-09-25 05:55] LABS: CREATININE 1.4 mg/dL (0.6-1.0); HEMATOCRIT 39.1 % (37.0-47.0); HEMOGLOBIN 12.9 gm/dL (12.0-15.0); MCHC 32.9 g/dL (28.0-37.0); MCV 100.2 fL (80.0-100.0); POTASSIUM 3.1 mmol/L (3.5-5.1); RBC 3.91 mil/uL (4.20-5.00); RDW 14.6 % (10.5-14.5); WBC 21.5 thou/uL (4.0-11.0)
[2017-09-25 08:00] VITALS: BP 119/59
[2017-09-25 14:27] VITALS: BP 119/61
[2017-09-25 19:47] VITALS: BP 136/61
[2017-09-26 04:15] VITALS: BP 138/61
[2017-09-26 06:11] LABS: HEMATOCRIT 39.7 % (37.0-47.0); HEMOGLOBIN 13.1 gm/dL (12.0-15.0); MCH 33.1 pg (26.0-34.0); MCV 100.4 fL (80.0-100.0); RBC 3.96 mil/uL (4.20-5.00); RDW 15.3 % (10.5-14.5); WBC 23.5 thou/uL (4.0-11.0)
[2017-09-26 06:32] LABS: CALCIUM 7.6 mg/dL (8.5-10.1); POTASSIUM 3.8 mmol/L (3.5-5.1)
[2017-09-26 07:34] VITALS: BP 132/68
[2017-09-26 16:34] VITALS: BP 123/54
[2017-09-26 19:44] VITALS: BP 110/58
[2017-09-27 00:40] LABS: URINE BILIRUBIN NEGATIVE (Negative); URINE BLOOD 3+ (Negative); URINE CLARITY CLEAR; URINE COLOR YELLOW; URINE GLUCOSE-RANDOM* NEGATIVE (Negative); URINE KETONES NEGATIVE (Negative); URINE PROTEIN (DIPSTICK) 1+ (Negative); URINE UROBILINOGEN 0.2 E.U./dl (0.2-1.0)
[2017-09-27 00:43] LABS: URINE LEUKOCYTES-REFLEX 3+ (Negative); URINE NITRITE-REFLEX POSITIVE (Negative)
[2017-09-27 00:52] LABS: BACTERIA-REFLEX >30 Many /HPF (None Seen); CASTS None Seen /LPF (None Seen); CRYSTALS None Seen /LPF (None Seen); MUCUS 4-6 Moderate strn/LPF (None Seen); SQUAMOUS 4-10 Moderate /LPF (0-3); URINE RBC 3-10 Few /HPF (0-2); URINE WBC-REFLEX >25 Many /HPF (0-5); YEAST-REFLEX Present (None Seen)
[2017-09-27 04:00] VITALS: BP 138/78
[2017-09-27 06:41] LABS: HEMATOCRIT 40.9 % (37.0-47.0); HEMOGLOBIN 13.6 gm/dL (12.0-15.0); MCH 33.3 pg (26.0-34.0); MCHC 33.2 g/dL (28.0-37.0); MCV 100.4 fL (80.0-100.0); RBC 4.07 mil/uL (4.20-5.00); RDW 15.2 % (10.5-14.5); WBC 12.9 thou/uL (4.0-11.0)
[2017-09-27 06:52] LABS: CALCIUM 7.8 mg/dL (8.5-10.1); CREATININE 0.8 mg/dL (0.6-1.0); POTASSIUM 3.6 mmol/L (3.5-5.1)
[2017-09-27 08:00] VITALS: BP 162/69
[2017-09-27] MEDS ORDERED: FLAGYL IV (16:24)
[2017-09-27] MEDS ORDERED: VANCOMYCIN PO (16:31)
[2017-09-27 16:33] VITALS: BP 122/62
[2017-09-27] MEDS ORDERED: NORVASC10 MG (16:37)
[2017-09-27] MEDS ORDERED: PROTONIX40 M1 (16:39)
[2017-09-27 20:02] VITALS: BP 132/78
[2017-09-28 04:03] LABS: HEMATOCRIT 38.6 % (37.0-47.0); HEMOGLOBIN 12.8 gm/dL (12.0-15.0); MCHC 33.3 g/dL (28.0-37.0); MCV 99.2 fL (80.0-100.0); RBC 3.89 mil/uL (4.20-5.00); RDW 15.2 % (10.5-14.5); WBC 9.2 thou/uL (4.0-11.0)
[2017-09-28 04:21] LABS: CALCIUM 7.7 mg/dL (8.5-10.1); CREATININE 0.7 mg/dL (0.6-1.0); POTASSIUM 3.6 mmol/L (3.5-5.1)
[2017-09-28 04:43] VITALS: BP 128/72
[2017-09-28 08:17] VITALS: BP 151/69
[2017-09-28 08:52] VITALS: BP 151/69
[2017-09-28] MEDS ORDERED: VANCOMYCIN HCL10 GM PO (09:42)
[2017-09-28] MEDS ORDERED: ACETAMINOPHEN325 M1 PO (09:43)
[2017-09-28] MEDS ORDERED: ENOXAPARIN40 MG/0.1 SUBQ (09:43)
[2017-09-28] MEDS ORDERED: FLAGYL500 MG IV (09:43)
[2017-11-21] MEDS ORDERED: VANCOMYCIN HCL10 GM PO (13:00)
[2017-11-21] MEDS ORDERED: NYSTATIN100000 UNI SW&SWALLOW (13:00)
[2017-11-21] MEDS ORDERED: ENOXAPARIN40 MG/0.1 SUBQ (13:00)
[2017-11-21] MEDS ORDERED: PACERONE 200 M200 M1 PO (13:00)
[2017-11-21] MEDS ORDERED: FLAGYL500 MG PO (13:00)
== END 2017-09-28 13:59 | DRG 871 ==
LOC: ER 12:18 → 4E 15:35 → EROBS 15:35 → 4E 17:52
PROVIDERS: Emergency Medicine; Internal Medicine Geriatric Medicine; Specialist
DX: A41.9 Sepsis, unspecified organism (principal); E43 Unspecified severe protein-calorie malnutrition; A04.71 Enterocolitis due to Clostridium difficile, recurrent; J44.1 Chronic obstructive pulmonary disease with (acute) exacerbation; N30.00 Acute cystitis without hematuria; I10 Essential (primary) hypertension; F32.9 Major depressive disorder, single episode, unspecified; F41.9 Anxiety disorder, unspecified; F17.210 Nicotine dependence, cigarettes, uncomplicated; I48.0 Paroxysmal atrial fibrillation; Z79.899 Other long term (current) drug therapy; Z79.82 Long term (current) use of aspirin; Z94.89 Other transplanted organ and tissue status; Z88.8 Allergy status to other drugs, medicaments and biological substances; Z87.81 Personal history of (healed) traumatic fracture; Z28.21 Immunization not carried out because of patient refusal
CPT/HCPCS: 10183

== ENCOUNTER → 2017-10-15 | Outpatient (CLI) | payer BC, OTHER ==
[~2017-10-15] MED LIST changes: +ACETAMINOPHEN325 M1 PO; +DELZICOL400 M1 PO; +FLAGYL IV; +FLAGYL500 MG PO; +NORVASC10 MG; +NYSTATIN100000 UNI SW&SWALLOW; +PROTONIX40 M1; +VANCOMYCIN PO
== END | disposition home or self-care (01) ==
LOC: RAD 09:29
DX: A04.72 Enterocolitis due to Clostridium difficile, not specified as recurrent (principal); J44.9 Chronic obstructive pulmonary disease, unspecified; I10 Essential (primary) hypertension; I48.91 Unspecified atrial fibrillation; Z88.8 Allergy status to other drugs, medicaments and biological substances; Z79.899 Other long term (current) drug therapy; Z79.82 Long term (current) use of aspirin

== ENCOUNTER 2017-10-30 15:36 | Inpatient (IN) | payer OTHER, BC ==
[~2017-10-30] VITALS: Ht 162.6 cm; Wt 69.4 kg
[2017-10-30] VITALS (8 sets, daily range): BP systolic 75–152; BP diastolic 32–79
--- NOTE | ~2017-10-30 | S ---
[facility] [place] [address] SURGICAL PATH RPT PROCEDURE Name: DENZEL BENTLEY Room #: 421-P ADM IN M.R.#: [id number] Admission: 10/30/17 Date of : 38 Discharge: Report #: [id number] Path Case #: [id number] PATHOLOGY REPORT COLLECTION DATE: 11/02/2017 RECEIVED DATE: 11/02/2017 SUBMITTING PHYS: Dr. Leonardo Pascal OTHER PHYS: Dr. Contreras Shafer SPECIMEN(S) RECEIVED: A.Random colon biopsies r/o microscopic colitis * * * * * * * * * * * * FINAL DIAGNOSIS: Large intestine mucosa, random colon, rule out microscopic colitis, endoscopic biopsy: - Mild focal acute inflammation along with nonspecific changes (please see comment). - Negative for dysplasia or malignancy. COMMENT: Examination shows an occasional to rare neutrophil within the surface epithelium, as well as an occasional crypt. The lamina propria cellularity appears mildly increased as well and is comprised of predominantly lymphocytes. There are no crypt abscesses present, or granulomata, or parasitic organisms identified. There are no viral inclusions present as well. The crypt architecture appears unremarkable without any architectural abnormalities or regenerative changes. Overall, findings are nonspecific and may be related to bowel preparation or an old resolved episode of colitis. History of C. difficile colitis and diverticulosis is noted. There is no dysplasia or malignancy present. (IUV:pit; 11/05/2017) PATHOLOGIST: Vivian Pak M.D. REPORT ELECTRONICALLY SIGNED BY: Vivian Pak M.D. DATE/TIME: 11/05/2017 14:52 * * * * * * * * * * * * GROSS PATHOLOGY: The specimen is received in formalin, labeled "[place], Denzel and random colon biopsies rule out microscopic colitis", are several escobedo soft tissues the aggregate measure 0.8 x 0.6 x 0.1 cm, entirely submitted in A1. (SWS; 11/02/2017) [facility] [address] [place] [address] SURGICAL PATH RPT PROCEDURE Name: DENZEL BENTLEY C Room #: 421-P [facility] IN .R.#: [id number] Admission: 10/30/17 Date of : 38 Discharge: Report #: [id number] Path Case #: [id number] CLINICAL HISTORY: History C. difficile, diverticulosis INITIAL CPT CODE(S): A; 49083 Professional services performed by [facility] at [address], [place] [address] Technical services performed by [facility] at [address] [place] [address], [facility] [address], [place] [address]. [facility] [address] [place] [address] PHONE: [phone] DIRECTOR: Lincoln Flowers M.D. * * * END OF REPORT * * *
--- NOTE | ~2017-10-30 | H ---
[facility] [place] [address] HISTORY AND PHYSICAL Name: DENZEL BENTLEY Room #: 421-P ADM IN M.R.#: [id number] Admission: 10/30/17 Attend Phys: Contreras Shafer MD Discharge: Date of : 39 Report #: [id number] THIS REPORT FOR: //name// CC: Contreras Shafer DATE OF SERVICE: 10/30/2017 CHIEF COMPLAINT: Diarrhea. HISTORY OF PRESENT ILLNESS: The patient is a 77-year-old female who came to the Emergency Room with diarrhea. She has had multiple admissions for recurrent C. diff colitis. She just completed 4 week LTAC stay for treatment and then underwent a second stool transplant, I believe on 10/15. She has been at home since and now has developed diarrhea over the last day or two. PAST MEDICAL HISTORY: Hypertension, paroxysmal AFib, paroxysmal SVT, COPD, history of vertebral compression fractures with vertebroplasty. History of sepsis and respiratory failure requiring ventilation in 2015. Recurrent C. diff colitis. PAST SURGICAL HISTORY: As above. FAMILY HISTORY: Noncontributory. SOCIAL HISTORY: She has got 70-eegh-iuar history of smoking, still smokes occasionally, previous alcohol use, but none recently. ALLERGIES: No known drug allergies. MEDICATIONS: DuoNeb, Norvasc, Coreg, Tylenol, Zoloft, Mucinex, budesonide inhaler, aspirin. REVIEW OF SYSTEMS: She denies headache, chest pain, shortness of breath, abdominal pain, nausea, vomiting, diarrhea, constipation, dysuria, syncope. OBJECTIVE: VITAL SIGNS: Temperature 35.9, pulse respirations 16, blood pressure O2 sat 97%. GENERAL: She is awake and alert, lying in bed. LUNGS: Clear. HEART: Regular. ABDOMEN: Protuberant, soft, normoactive bowel sounds. No rebound or guarding. EXTREMITIES: No edema. LABORATORY DATA: Reviewed. [facility] [address] [place] [address] HISTORY AND PHYSICAL Name: DENZEL BENTLEY Room #: [address] [place] [address]#: [id number] Admission: 10/30/17 Attend Phys: Contreras Shafer MD Discharge: Date of : 39 Report #: [id number] ASSESSMENT: 1. Clostridium difficile colitis. 2. Sepsis syndrome due to the above. 3. Chronic obstructive pulmonary disease. 4. Hypertension. PLAN: I have spoken with Dr. Goins, and he is arranging a repeat stool transplant. In the meantime, she will continue with vancomycin and Flagyl and other supportive measures. She has been stable overnight, can transfer out of ICU. <ELECTRONICALLY SIGNED> By: Contreras Shafer MD 11/01/17 0822 1326 1352 Contreras Shafer MD /nt
--- NOTE | ~2017-10-30 | HC ---
[facility] [place] [address] CONSULTATION Name: DENZEL BENTLEY Martinez Room #: 421-P [facility] IN .R.#: [id number] Admission: 10/30/17 Attend Phys: Contreras Shafer MD Discharge: Date of : 39 Report #: [id number] THIS REPORT FOR: //name// CC: Contreras Shafer REASON FOR CONSULTATION: I was asked to evaluate concerning C. difficile colitis and sepsis. HISTORY OF PRESENT ILLNESS: The patient is a 77-year-old with a relapse of her C. difficile colitis associated with hypertension, dehydration along with this she has had cough and yellow sputum production. She has had 9 hospitalizations in the last 2 years because of recurrent C. difficile colitis and pseudomembranous colitis. She has undergone 2 fecal transplants, one in July and the last one approximately 2 weeks ago. Presents now with profuse diarrhea over the last several days. Unable to come into the office for further evaluation and was seen in the emergency room. Now in the intensive care unit. Given IV fluids. Hemodynamics have improved. She has cough with yellow sputum. No definite shortness of breath. No chest pain. No hemoptysis. Denies any dysuria or frequency. She has had no rash. ALLERGIES: None. MEDICATIONS: As noted on her MAR, now on vancomycin orally and metronidazole IV. PAST MEDICAL HISTORY: C. difficile colitis, pseudomembranous colitis, COPD, paroxysmal atrial fibrillation, urinary tract infections, thoracic vertebral compression fractures, status post vertebroplasty. FAMILY HISTORY: Noncontributory. SOCIAL HISTORY: Past tobacco and alcohol use. Has been residing at home. Has some assistance with her grandson. REVIEW OF SYSTEMS: Noted above. PHYSICAL EXAMINATION: VITAL SIGNS: Afebrile, heart rate 77, blood pressure 126/84, oxygen at 2 liters per nasal cannula. GENERAL: The patient was alert and cooperative. She was weak. HEENT: Unremarkable. LUNGS: Clear. HEART: Regular, without murmur. ABDOMEN: Soft, mild tenderness in the left lower quadrant. She was incontinent of loose stool. EXTREMITIES: Unremarkable. [facility] [address] [place] [address] CONSULTATION Name: MC,DENZEL C Room #: 421-P [facility] IN M.R.#: [id number] Admission: 10/30/17 Attend Phys: Contreras Shafer MD Discharge: Date of : 39 Report #: [id number] LABORATORY STUDIES: Hemoglobin 11.6, WBC 23.6 with 3% bands, 86% segs, and platelet count was 241,000. She had 1% myelocytes and 1% atypical lymphs. Stool Gram stain showed no WBCs. Sodium 140, potassium 3, bicarbonate of 19, creatinine 1.4. Liver function test normal. Albumin of 2. Urinalysis, pyuria, bacteriuria and hematuria. Urine culture is pending with Gram-negative rods growing greater than 10 to the fifth. Stool for C. diff is pending. Stool for culture is pending. Blood cultures are pending. IMPRESSION: A 77-year-old with underlying chronic obstructive pulmonary disease, chronic bronchitis, recurring pseudomembranous colitis. She has so far failed 2 fecal transplants. She has undergone endoscopy with biopsy showing colitis in July 2017. There has been no evidence of ischemia identified nor inflammatory bowel disease. I am still suspecting Clostridium difficile is the underlying pathology here. RECOMMENDATIONS: Considering the patient has had 2 fecal transplants via upper GI delivery, we will plan on repeating with colonoscopy. This will allow repeat evaluation of the colon along with administration of fecal transplant. We will await urine culture results, as well we will repeat chest x-ray and sputum culture. We will hold any other systemic antibiotics pending these studies. The patient has received fluid resuscitation. Anticipate transfer to the med/surg floor. <ELECTRONICALLY SIGNED> By: Leonel Goins MD 11/01/17 0952 1004 1150 Leonel Goins MD /nt
--- NOTE | ~2017-10-30 | P ---
[facility] [place] [address] PROCEDURE REPORT Name: DENZEL BENTLEY Room #: 421-P [facility] IN M.R.#: [id number] Admission: 10/30/17 Attend Phys: Contreras Shafer MD Discharge: Date of : 39 Report #: [id number] THIS REPORT FOR: //name// CC: ADRIANO Shafer DATE OF SERVICE: 11/02/2017 PROCEDURE PERFORMED: Colonoscopy with biopsies and fecal transplant. HISTORY OF PRESENT ILLNESS: The patient is a 77-year-old female with recurrent C. diff, who has undergone previous fecal transplants in the past. She has also had a flexible sigmoidoscopy by myself in July. Biopsies at that time showed colitis, but it was nonspecific. She has been started on mesalamine. Plan is for colonoscopy. DESCRIPTION OF PROCEDURE: The risks and benefits of the procedure were explained to the patient, those risks including but not limited to bleeding, perforation, the risk of sedation. She understood these risks and gave informed consent. Sedation was given using propofol per anesthesia. Next, a digital rectal exam was initially performed, which was normal. Next, using a standard ActiveReplayn colonoscope, the scope was placed in the patient's anus and advanced under direct vision to the cecum. The overall prep was good. Cecum and ileocecal valve were normal in appearance. Terminal ileum was intubated and normal in appearance. Ascending, transverse colon were all normal. No evidence of obvious colitis. Random biopsies were obtained to rule out the possibility of microscopic colitis. The scope was readvanced to the cecum and then I proceeded with fecal transplant with 120 mL that was prepared in the lab. This was flushed into the cecum and ascending colon without difficulty. The descending colon was normal. Multiple diverticula were noted in the sigmoid colon, no evidence of inflammation. The rectal mucosa was normal. The scope was then withdrawn and the procedure terminated. The patient tolerated the procedure well. IMPRESSION: 1. Diverticulosis. 2. No obvious colitis was noted. 3. Status post fecal transplant as described above. RECOMMENDATIONS: 1. Await biopsy results. 2. Observe the patient status post fecal transplant. [address] [address] PROCEDURE REPORT Name: DENZEL BENTLEY Room #: 421-P [facility] IN .R.#: [id number] Admission: 10/30/17 Attend Phys: Contreras Shafer MD Discharge: Date of : 39 Report #: [id number] Thank you for allowing me to participate in her care. By: [id number] Leonardo Pascal MD /nt
--- NOTE | ~2017-10-30 | D ---
[facility] [place] [address] DISCHARGE SUMMARY Name: DENZEL BENTLEY Martinez Room #: 421-P [facility] IN M.R.#: [id number] Admission: 10/30/17 Attend Phys: Contreras Shafer MD Discharge: 11/06/17 Date of : 38 Report #: [id number] THIS REPORT FOR: //name// CC: Contreras Shafer DATE OF SERVICE: 11/06/2017 FINAL DIAGNOSES: 1. Recurrent Clostridium difficile colitis. 2. Hypertension. 3. Chronic obstructive pulmonary disease. 4. Colitis. HOSPITAL COURSE: The patient was admitted with diarrhea and C. diff was positive. GI and ID services followed her. Colonoscopy was performed. She was started on mesalamine empirically for generalized colitis that was seen on previous biopsies. According to the notes on the scope, there was no evidence of pseudomembranes or colitis. She did receive a fecal transplant via colonoscopy. Diarrhea resolved, and she had no other interval complication. PHYSICAL EXAMINATION: GENERAL: On the day of discharge, she is awake and alert. VITAL SIGNS: Stable vital signs. Blood pressure was ranging 120s/60s to 180s/90s. LUNGS: Clear. HEART: Regular. ABDOMEN: Soft, normoactive bowel sounds. EXTREMITIES: No edema. DISPOSITION: To be discharged to home with home health. Diet and activity as tolerated, resume all medicines plus lisinopril 40 mg a day, mesalamine 800 mg t.i.d., Coreg 25 mg b.i.d., Norvasc 10 mg a day, Zoloft 150 mg a day, Pulmicort nebulizer, DuoNeb nebulizer, aspirin 81 mg a day, Tylenol as needed. Follow up with me and Dr. Goins in a week. <ELECTRONICALLY SIGNED> By: Contreras Shafer MD 11/07/17 1308 0959 1045 Contreras Shfaer MD /nt
[~2017-10-30 15:36] MED LIST changes: -DELZICOL400 M1 PO; -FLAGYL500 MG PO; -NYSTATIN100000 UNI SW&SWALLOW
[2017-10-30 16:22] LABS: HEMATOCRIT 41.1 % (37.0-47.0); HEMOGLOBIN 13.5 gm/dL (12.0-15.0); MCH 32.1 pg (26.0-34.0); MCV 97.3 fL (80.0-100.0); PLATELET COUNT 259 thou/uL (150-400); RBC 4.22 mil/uL (4.20-5.00); RDW 15.5 % (10.5-14.5); WBC 30.9 thou/uL (4.0-11.0)
[2017-10-30 16:30] LABS: CALCIUM 8.8 mg/dL (8.5-10.1); CREATININE 1.6 mg/dL (0.6-1.0); POTASSIUM 3.4 mmol/L (3.5-5.1)
[2017-10-30 16:36] LABS: ALBUMIN 2.5 g/dL (3.4-5.0); TOTAL BILIRUBIN 0.3 mg/dL (<0.1-1.0)
[2017-10-30 16:45] LABS: ABSOLUTE NEUTROPHILS 28.7 thou/uL (1.4-8.2)
[2017-10-30 16:46] LABS: ANISOCYTOSIS 1+; BURR CELLS FEW
[2017-10-30 16:47] LABS: MICROCYTES SLIGHT
[2017-10-30 17:56] LABS: URINE BLOOD 3+ (Negative); URINE CLARITY CLOUDY; URINE COLOR BROWN; URINE GLUCOSE-RANDOM* NEGATIVE (Negative); URINE KETONES NEGATIVE (Negative); URINE NITRITE-REFLEX NEGATIVE (Negative); URINE PROTEIN (DIPSTICK) 2+ (Negative); URINE SPECIFIC GRAVITY 1.015 (1.005-1.035); URINE UROBILINOGEN 0.2 E.U./dl (0.2-1.0)
[2017-10-30 17:58] LABS: ICTOTEST (BILI CONFIRMATORY) Negative (Negative); URINE BILIRUBIN NEGATIVE (Negative); URINE LEUKOCYTES-REFLEX 3+ (Negative)
[2017-10-30 18:09] LABS: BACTERIA-REFLEX >30 Many /HPF (None Seen); CASTS None Seen /LPF (None Seen); CRYSTALS None Seen /LPF (None Seen); MUCUS >6 Heavy strn/LPF (None Seen); SQUAMOUS >10 Many /LPF (0-3); URINE RBC >20 Many /HPF (0-2); URINE WBC-REFLEX >25 Many /HPF (0-5)
[2017-10-31] VITALS (20 sets, daily range): BP systolic 87–158; BP diastolic 55–129
[2017-10-31 04:25] LABS: HEMOGLOBIN 11.6 gm/dL (12.0-15.0); WBC 23.6 thou/uL (4.0-11.0)
[2017-10-31 04:30] LABS: HEMATOCRIT 34.8 % (37.0-47.0); MCH 32.5 pg (26.0-34.0); MCHC 33.3 g/dL (28.0-37.0); MCV 97.6 fL (80.0-100.0); PLATELET COUNT 241 thou/uL (150-400); RBC 3.57 mil/uL (4.20-5.00)
[2017-10-31 04:48] LABS: CALCIUM 7.8 mg/dL (8.5-10.1); CREATININE 1.4 mg/dL (0.6-1.0); TOTAL BILIRUBIN 0.2 mg/dL (<0.1-1.0); TOTAL PROTEIN 4.9 g/dL (6.4-8.2)
[2017-10-31 05:38] LABS: ATYPICAL LYMPHS 1 %; MYELOCYTES 1 %
[2017-11-01 04:00] VITALS: BP 138/55
[2017-11-01 06:20] LABS: HEMATOCRIT 36.4 % (37.0-47.0); MCH 32.2 pg (26.0-34.0); MCV 97.6 fL (80.0-100.0); PLATELET COUNT 258 thou/uL (150-400); RBC 3.73 mil/uL (4.20-5.00); RDW 15.4 % (10.5-14.5); WBC 16.1 thou/uL (4.0-11.0)
[2017-11-01 06:24] LABS: CALCIUM 7.9 mg/dL (8.5-10.1); CREATININE 1.1 mg/dL (0.6-1.0); POTASSIUM 3.6 mmol/L (3.5-5.1)
[2017-11-01 08:30] VITALS: BP 166/80
[2017-11-01 08:31] LABS: ABSOLUTE NEUTROPHILS 12.9 thou/uL (1.4-8.2); PLATELET ESTIMATE NORMAL
[2017-11-01 19:42] VITALS: BP 165/68
[2017-11-02 04:59] VITALS: BP 166/79
[2017-11-02 05:11] LABS: CALCIUM 8.1 mg/dL (8.5-10.1); CREATININE 0.9 mg/dL (0.6-1.0); POTASSIUM 3.9 mmol/L (3.5-5.1)
[2017-11-02 05:13] LABS: HEMOGLOBIN 12.2 gm/dL (12.0-15.0); MCH 32.3 pg (26.0-34.0); MCV 97.9 fL (80.0-100.0); RBC 3.77 mil/uL (4.20-5.00); RDW 15.3 % (10.5-14.5); WBC 13.8 thou/uL (4.0-11.0)
[2017-11-02 07:30] VITALS: BP 138/90
[2017-11-02 20:21] VITALS: BP 157/92
[2017-11-03 00:18] VITALS: BP 162/91
[2017-11-03 05:14] VITALS: BP 163/79
[2017-11-03 15:50] VITALS: BP 176/89
[2017-11-03 19:30] VITALS: BP 175/85
[2017-11-04 00:05] VITALS: BP 139/78
[2017-11-04 03:39] VITALS: BP 162/82
[2017-11-04 07:50] VITALS: BP 168/87
[2017-11-04 15:54] VITALS: BP 140/89
[2017-11-04 20:00] VITALS: BP 135/65
[2017-11-05] VITALS: BP 126/66
[2017-11-05 04:00] VITALS: BP 130/65
[2017-11-05 06:59] LABS: HEMATOCRIT 37.3 % (37.0-47.0); HEMOGLOBIN 12.5 gm/dL (12.0-15.0); MCH 32.7 pg (26.0-34.0); MCHC 33.6 g/dL (28.0-37.0); MCV 97.2 fL (80.0-100.0); RBC 3.83 mil/uL (4.20-5.00); RDW 15.5 % (10.5-14.5); WBC 12.2 thou/uL (4.0-11.0)
[2017-11-05 07:09] LABS: POTASSIUM 3.2 mmol/L (3.5-5.1)
[2017-11-05 07:32] VITALS: BP 158/107
[2017-11-05 08:00] VITALS: BP 158/107
[2017-11-05 15:45] VITALS: BP 178/96
[2017-11-05 20:00] VITALS: BP 144/88
[2017-11-06 04:00] VITALS: BP 151/95
[2017-11-06 06:18] LABS: MCH 32.5 pg (26.0-34.0); MCHC 33.3 g/dL (28.0-37.0); MCV 97.4 fL (80.0-100.0); RBC 3.7 mil/uL (4.20-5.00); RDW 15.8 % (10.5-14.5); WBC 12.2 thou/uL (4.0-11.0)
[2017-11-06 06:43] LABS: CALCIUM 8.3 mg/dL (8.5-10.1); CREATININE 0.9 mg/dL (0.6-1.0); POTASSIUM 3.7 mmol/L (3.5-5.1)
[2017-11-06 07:18] VITALS: BP 174/106
[2017-11-06] MEDS ORDERED: DELZICOL400 M1 PO (09:54)
[2017-11-06] MEDS ORDERED: LISINOPRIL40 MG PO (09:55)
[2017-11-06 10:40] VITALS: BP 174/106
[2017-11-06 11:37] VITALS: BP 174/106
[2017-11-06 13:15] VITALS: BP 174/106
== END 2017-11-06 13:38 | disposition home health service (06) | DRG 871 ==
LOC: ER 15:36 → EROBS 17:57 → ICU 17:57 → 4E 10-31 16:06
PROVIDERS: Internal Medicine Geriatric Medicine; Physician Assistant
PROC: 0DBE8ZX Excision of Large Intestine, Via Natural or Artificial Opening Endoscopic, Diagnostic (ICD-10-PCS; principal; 2017-11-02)
PROC: 3E0H7GC Introduction of Other Therapeutic Substance into Lower GI, Via Natural or Artificial Opening (ICD-10-PCS; principal; 2017-11-02)
DX: A41.9 Sepsis, unspecified organism (principal); E43 Unspecified severe protein-calorie malnutrition; A04.71 Enterocolitis due to Clostridium difficile, recurrent; N17.9 Acute kidney failure, unspecified; I10 Essential (primary) hypertension; J44.9 Chronic obstructive pulmonary disease, unspecified; R65.20 Severe sepsis without septic shock; I48.0 Paroxysmal atrial fibrillation; K57.30 Diverticulosis of large intestine without perforation or abscess without bleeding; F41.9 Anxiety disorder, unspecified; F32.9 Major depressive disorder, single episode, unspecified; F17.210 Nicotine dependence, cigarettes, uncomplicated; Z87.81 Personal history of (healed) traumatic fracture; Z79.82 Long term (current) use of aspirin; Z79.899 Other long term (current) drug therapy; Z88.8 Allergy status to other drugs, medicaments and biological substances
CPT/HCPCS: 10078; 10783; 62110; 62900